=== PATIENT | female | born 1950 | race Caucasian/White ===

== ENCOUNTER 2018-12-13 17:04 | Inpatient (IN) | payer MEDICARE, OTHER ==
[~2018-12-13] VITALS: Ht 170.2 cm; Wt 63.2 kg
[2018-12-13 19:07] VITALS: BP 132/74
[2018-12-13 19:51] VITALS: BP 109/62
[2018-12-13] MEDS ORDERED: OXYB15TA PO (21:29)
[2018-12-13] MEDS ORDERED: OXYB10TA PO (21:29)
[2018-12-13] MEDS ORDERED: LEVO25TA4 PO (21:29)
[2018-12-13] MEDS ORDERED: METF500T9 PO (21:29)
[2018-12-13] MEDS ORDERED: LORA0.5T PO (21:29)
--- NOTE | 2018-12-13 21:30 | NUR ---
Home meds reviewed with pharmacy at [facility] and with patient
[2018-12-13] MEDS ORDERED: DEXTROSE 50% 25 GM / 50ML DISP.SYRIN. IV PRN (23:15)
[2018-12-13] MEDS ORDERED: IV DEXTROSE 5% 250 ML BAG. IV PRN (23:15)
[2018-12-13] MEDS: HYDROcodone/APAP 5/325MG 1 TAB TABLET PO PRN (23:32)
[2018-12-13 23:56] VITALS: BP 137/79
[2018-12-14] VITALS (8 sets, daily range): BP systolic 107–152; BP diastolic 64–83
[2018-12-14 05:46] LABS: BASO % 0 % (0-3); EOS % 0 % (0-3); HEMATOCRIT 33.5 % (36.0-47.0); HEMOGLOBIN 11.1 g/dL (12.0-15.5); LYMPH # 0.5 x10^3/uL (1.0-4.8); LYMPH % 4 % (24-48); MEAN CORPUSCULAR HEMOGLOBIN 32 pg (25-35); MEAN CORPUSCULAR HGB CONC 33 g/dL (31-37); MEAN CORPUSCULAR VOLUME 97 fL (79-100); MONO # 1.3 x10^3/uL (0.0-1.1); MONO % 11 % (0-9); NEUT # 9.6 x10^3/uL (1.8-7.7); NEUT % 84 % (31-73); PLATELET COUNT 391 x10^3/uL (140-400); RED BLOOD COUNT 3.46 x10^6/uL (3.50-5.40); RED CELL DISTRIBUTION WIDTH 14.1 % (11.5-14.5); WHITE BLOOD COUNT 11.4 x10^3/uL (4.0-11.0)
[2018-12-14] MEDS: LEVOTHYROXINE 25 MCG TABLET. PO SCH (05:51)
[2018-12-14] MEDS: HYDROcodone/APAP 5/325MG 1 TAB TABLET PO PRN ×4 (05:51→20:19)
[2018-12-14 06:00] LABS: ALBUMIN/GLOBULIN RATIO 0.4 (1.0-1.7); CALCIUM 9.3 mg/dL (8.5-10.1); CREATININE 0.7 mg/dL (0.6-1.0); GFR 83.2; POTASSIUM 3.9 mmol/L (3.5-5.1); TOTAL BILIRUBIN 0.6 mg/dL (0.2-1.0); TOTAL PROTEIN 6.7 g/dL (6.4-8.2)
[2018-12-14 06:20] LABS: PROTHROMBIN TIME PATIENT 15.2 SEC (11.7-14.0)
[2018-12-14] MEDS: IPRATRPIUM/ALBUTEROL 0.5/2.5MG 3 ML NEBU. NEB SCH ×4 (07:40→19:48)
[2018-12-14] MEDS: metFORMIN XR 500 MG TAB.ER.24H PO SCH ×2 (08:28→17:42)
[2018-12-14] MEDS: LORazepam 0.5 MG TABLET PO SCH (08:28)
[2018-12-14] MEDS: OXYBUTYNIN CHLORIDE 5 MG TABLET PO SCH ×3 (08:28→20:19)
[2018-12-14] MEDS: INSULIN LISPRO 300 UNITS/3 ML INSULN.PEN. SQ SCH ×3 (08:35→17:49)
[2018-12-14] MEDS ORDERED: OXYBUTYNIN CHLORIDE PO SCH ×2 (09:00)
[2018-12-14] MEDS ORDERED: PIPERACILLIN/TAZOBACTAM 3.375 GM in IV NORMAL SALINE 50ML 50 ML IV SCH (10:30)
--- NOTE | 2018-12-14 11:01 | HP ---
ADMIT DATE: 12/13/2018 HISTORY OF PRESENT ILLNESS: The patient is a 68-year-old female patient who presented to the Emergency Room of [facility] with generalized weakness and decreased appetite. She was recently diagnosed with possible lung cancer. She is scheduled for a biopsy. Over the last 4 days, she has had decreased appetite because anything she eats or drinks taste nasty. Her water had an unusual taste. She has been feeling more and more weak over the last 4 days, still has a productive cough and admits the cough is improved, but it was a month ago. She has been through several rounds of antibiotic and prednisone by her primary care physician. She was seen on 12/11/[address] Waller and apparently, a CT scan of the chest showed that she has 2 lung masses and they were plans for her to have a biopsy by interventional radiologist and a PET scan to rule out cancer in other parts of the body; however, she was evaluated yesterday in the Emergency Room, was found to have large right pleural effusion with adjacent basilar atelectasis and obscuration of the right heart border, previously seen the right lower lung mass is obscured in this exam and therefore, she was admitted to [facility] to consult the community service representative as well as the interventional radiologist to drain the fluid. PAST MEDICAL HISTORY: Significant for type 2 diabetes and chronic obstructive pulmonary disease. PAST SURGICAL HISTORY: Unremarkable. MEDICATIONS: She is currently on following medications: She is on ipratropium bromide, albuterol sulfate in 3 mL by nebulizer 4 times a day, spironolactone 25 mg once a day, ibuprofen 600 mg every 8 hours, hydrocodone/APAP 5/325 one tablet every 6 hours. She is on tramadol 50 mg every 6 hours, sertraline for Zoloft 200 mg once a day, lorazepam 0.5 mg once a day, Requip 0.5 mg at bedtime. She is on mometasone/formoterol for Dulera 2 puffs twice a day, metformin 1000 mg twice a day, levothyroxine 75 mcg once a day and oxybutynin chloride 5 mg once a day. ALLERGIES: SHE IS ALLERGIC TO SULFA DRUGS. FAMILY HISTORY: She has 1 older sister and one younger brother, both healthy. Her father at age of 84 and mother in her 80s. She is unable to say what caused their . SOCIAL HISTORY: She lives with her boyfriend. She does not have any children. She continued to smoke a pack a day, does not drink alcohol or use any recreational drugs. 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 REVIEW OF SYSTEMS: The patient denied any blurring of vision, cataract, glaucoma or macular degeneration. Denied any earache, tinnitus or sensorineural deafness. Denied any nosebleeds, stuffy nose or postnasal drip. Denied any sore throat, sore tongue, toothache, hoarseness of voice or difficulty swallowing. Did complain of anorexia, but no nausea, no vomiting, no diarrhea or constipation. Denied any hematemesis, melena or hematochezia. Denied any dysuria, frequency or hematuria. Denied any chest pain, but did complain of shortness of breath, cough with greenish sputum. Denied, however, any chills, rigors or fever. She has lost weight over the last 2 years. Her weight came down from 219 to 139. PHYSICAL EXAMINATION: GENERAL: When I examined her, she was extremely pale, cachectic, but no jaundice, cyanosis or thyromegaly. No jugular venous distention. No limb edema. VITAL SIGNS: Her heart rate was 97, blood pressure was 122/69, temperature was 97.8, respiratory rate was 24, and oxygen saturation was 97%. HEAD, EYES, Ears, NOSE AND THROAT: Normocephalic, atraumatic. NECK: Supple. HEART: Showed normal first and second heart sounds with no gallop or murmur. CHEST: Shows central trachea, good chest expansion air entry on the left side and absent breath sounds and dull percussion noted in the right side. ABDOMEN: Scaphoid, soft, nontender. NEUROLOGIC: She is awake, alert, responding appropriately. All cranial nerves are intact. EXTREMITIES: She moves extremities without difficulty, although she has marked muscle wasting. LABORATORY DATA: While in the Emergency Room of [facility] showed a white cell count of 16,400, hemoglobin 11.7, hematocrit 35, MCV 97, and platelet count of 419,000 with manual differential. Serum sodium was 127, potassium 4, chloride 91, bicarbonate 24, anion gap of 12, BUN 31, creatinine 0.9, estimated GFR was 62 mL per minute. Her glucose 171, calcium was 9.6. Total bilirubin, AST and ALT are normal. Alkaline phosphatase is slightly elevated. Total protein was 7. Albumin was 2.2. She apparently had a CT scan of the chest with IV contrast done on 11/26/2018 and this showed that she has bilateral lung masses seen with central necrosis suspicious for necrotic malignancy. This can be further evaluated by PET scan and/or biopsy. She has prominent enlarged mediastinal hilar lymph nodes seen. These are suspicious for metastatic involvement. Her left adrenal nodule and the right adrenal mass highly suspicious for metastatic involvement and can be further assessed by PET scan. She has right thyroid nodule measuring about 3.5 x 2.7 cm and should be further assessed with ultrasound and possible fine needle aspiration. She has had a chest x-ray done, which was seen in the Emergency Room and this showed that she has interval development of a large right pleural effusion with adjacent basilar atelectasis and obscuration of the right heart border, previously seen right lung mass is obscured in this exam. The patient was admitted to [facility] to continue with all other medication. We will consult the community service representative as well as the interventional radiologist to see if the pleural effusion can be drained and perhaps about a CT-guided biopsy can be obtained. MARK MARQUES MD DR: CHARLIE/rafael JOB#: [id number] / [id number]
[2018-12-14] MEDS: PIPERACILLIN/TAZOBACTAM 4.5 GM in IV NORMAL SALINE 100ML 100 ML IV SCH ×2 (11:07→17:41)
--- NOTE | 2018-12-14 11:15 | CONS ---
DATE OF CONSULTATION: PULMONARY CONSULTATION ATTENDING PHYSICIAN: Eddie Tirado MD REASON FOR CONSULTATION: Large pleural effusion, lung masses, and empyema. HISTORY OF PRESENT ILLNESS: The patient is a 68-year-old female who has a long history of tobacco use for 40 years. The patient has not been on home oxygen. She was seen by my partner, Dr. Waller on 12/11, where she presented with an abnormal CT chest, which had a large mass in the right lower lobe with central fluid collection and there was also a left upper lobe mass-like density with central necrosis. The patient was supposed to have a CT-guided biopsy; however, in the interim, she had a chest x-ray, which was done yesterday and it showed a large partially loculated right-sided pleural effusion. As a result, she was admitted for chest tube and thoracentesis. After the thoracentesis was performed, there was pus which came out of her right chest and as a result, she had a chest tube placed and all the fluid has been sent for analysis. The patient has been started on broad spectrum antibiotics. Upon further questioning, she states that she has lost about close to 100 pounds in a year. She attributes that to the use of metformin. The patient states that she fell about a month and half ago and since then, she started to have these symptoms including cough productive of multiple colored sputum including yellow, brown, and even blood-tinged. She has no TB exposure. She has some chills, but no fevers. She has cats, but no birds or other pets. Interestingly, her chest x-ray from August of this year did not reveal any definite masses or any significant effusion. I have been asked to see her for further evaluation. PAST MEDICAL HISTORY: Significant for suspected COPD that could be severe; history of recent weight loss, attributed to metformin use; history of diabetes. PAST SURGICAL HISTORY: No recent surgeries. MEDICATIONS: All reviewed as listed in the MRAD including broad spectrum antibiotics. REVIEW OF SYSTEMS: A 12-point system obtained. Pertinent positives discussed in my history of present illness, otherwise noncontributory. All systems that were negative were reviewed as well. SOCIAL HISTORY: Has been a smoker for 40 years and has not quit tobacco. FAMILY HISTORY: Noncontributory to lungs. PHYSICAL EXAMINATION: VITAL SIGNS: Reviewed. She is afebrile. Her pulse ox is 92% on 2 liters. HEENT: Sclerae nonicteric. NECK: Supple. LUNGS: With diminished breath sounds at right base. CARDIOVASCULAR: With a regular rate. ABDOMEN: Soft. EXTREMITIES: With no pitting edema. LABORATORY DATA: Labs were reviewed. White cell count 11.4, hemoglobin 11.1, and platelets are 391. BUN 24 and creatinine 0.7. IMPRESSION: 1. Large right-sided partially loculated pleural effusion, status post thoracentesis and consistent with pus and likely related to empyema. 2. Large rounded density with fluid collection in the right lower lobe close to the pleura and another density in the left upper lobe with some central necrosis. Interestingly, the chest x-ray in August was clear and I suspect that we may be dealing with an infectious process such as lung abscess/empyema on the right side and possible early abscess on the left upper lobe. However, the possibility of a necrotic tumor cannot be ruled out. Symptoms started after she fell over a month ago. 3. A 100-pound weight loss in the last 1 year. She attributes this to metformin use; however, malignancy is still a concern. She had a mammogram done 6 months ago and was negative for malignancy. 4. A 40 years of tobacco use, suspect underlying severe chronic obstructive pulmonary disease. 5. Acute hypoxic respiratory failure secondary to large right pleural effusion and underlying chronic obstructive pulmonary disease. RECOMMENDATIONS: 1. Continue with present oxygen 2 liters. 2. Continue chest tube drainage and follow the analysis. We will do daily chest x-ray and if that is still partial residual effusion left, she may need TPA via a chest tube. 3. We will review the cytology, as well as review all pleural fluid cultures. 4. We will follow chest x-ray and see the response to treatment. 5. Broad-spectrum antibiotics. 6. Infectious Disease has been consulted. We will follow along with them, their recommendation. 7. Bronchodilators. 8. Continue oxygen. 9. Further recommendations to follow once the analysis of the fluid are available. 10. Discussed with Dr. Tirado and discussed with Infectious Disease, RAILROAD [employer]ER. Critical care time 35 minutes. GILMA LÓPEZ MD DR: MARIAJOSE/rafael JOB#: [id number] / [id number] MTDD
[2018-12-14 11:17] LABS: % BANDS 22 % (0-9); % EOS 1 % (0-5); % LYMPHS 3 % (24-48); % METAS 1 % (0-0); % MONOS 6 % (0-10); % MYELOS 3 % (0-0); % SEGS 64 % (35-66)
[2018-12-14 11:18] LABS: PLT ESTIMATE ADEQUATE (ADEQUATE)
--- NOTE | 2018-12-14 12:28 | RAD ---
Ultrasound-guided placement of right thoracostomy tube. 12/14/2018 12:23 PM Indication: Multiloculated right pleural fluid collection. Pulmonary masses possibly related to infection or malignancy Consent: The procedure was explained in its entirety to the patient or the patients designated admitting representative by a member of the treatment team, including a discussion of the risks, benefits and commonly accepted alternatives to the procedure, as well as the expected consequences of no therapy whatsoever. Discussion of the risks included, but was not limited to, those that are most frequent and those that are rare but possibly severe or life-threatening, as well as the possibility of unforeseen complications. All elements of maximal sterile barrier technique including the use of a cap, mask, sterile gown, sterile gloves, large sterile sheet, appropriate hand hygiene, and 2% chlorhexidine for cutaneous antisepsis (or acceptable alternative antiseptic per current guidelines) were followed for this procedure. The right posterior thorax prepped and draped using sterile barrier technique. Ultrasound evaluation demonstrates a multiloculated, complex pleural collection. 1% lidocaine was administered for local anesthesia. Under direct ultrasound guidance a 5 Ugandan sheath needle was advanced into the largest visualized fluid collection. A guidewire was advanced into this collection over which following dilatation a 12 Ug[place]an drainage catheter was placed. Samples of fluid were aspirated and sent for further evaluation. Anesthesia: Local only Impression: Ultrasound-guided right thoracostomy tube placement
[2018-12-14 12:37] LABS: BF COLOR YELLOW; BF SOURCE PLEURAL
[2018-12-14 12:38] LABS: BF CLARITY TURBID; BF MON % 2 %; BF PMN % 98 %; BF RBC COUNT 30886 /cmm (Not Established); BF WBC COUNT 163470 /cmm (Not Established)
--- NOTE | 2018-12-14 15:08 | NUR ---
Tube leak noted with bubbles during inspiration at the CT insertion site. Musa, Roseanna, and Dr. Armijo notified. CT and suction left in place.
--- NOTE | 2018-12-14 17:05 | PDOC ---
Infectious Disease Note Vital Sign Vital Signs Vital Signs Date Time Temp Pulse Resp B/P (MAP) Pulse Ox O2 Delivery O2 Flow Rate FiO2 12/14/18 16:29 Nasal Cannula 2.0 12/14/18 15:36 95 12/14/18 15:30 97.9 90 20 107/68 (81) 97.9 Labs Lab Laboratory Tests Test 12/13/18 21:03 12/14/18 05:10 12/14/18 07:21 12/14/18 09:30 Glucose (Fingerstick) 156 mg/dL (70-99) 182 mg/dL (70-99) White Blood Count 11.4 x10^3/uL (4.0-11.0) Red Blood Count 3.46 x10^6/uL (3.50-5.40) Hemoglobin 11.1 g/dL (12.0-15.5) Hematocrit 33.5 % (36.0-47.0) Mean Corpuscular Volume 97 fL (79-100) Mean Corpuscular Hemoglobin 32 pg (25-35) Mean Corpuscular Hemoglobin Concent 33 g/dL (31-37) Red Cell Distribution Width 14.1 % (11.5-14.5) Platelet Count 391 x10^3/uL (140-400) Neutrophils (%) (Auto) 84 % (31-73) Lymphocytes (%) (Auto) 4 % (24-48) Monocytes (%) (Auto) 11 % (0-9) Eosinophils (%) (Auto) 0 % (0-3) Basophils (%) (Auto) 0 % (0-3) Neutrophils # (Auto) 9.6 x10^3/uL (1.8-7.7) Lymphocytes # (Auto) 0.5 x10^3/uL (1.0-4.8) Monocytes # (Auto) 1.3 x10^3/uL (0.0-1.1) Eosinophils # (Auto) 0.0 x10^3/uL (0.0-0.7) Basophils # (Auto) 0.0 x10^3/uL (0.0-0.2) Segmented Neutrophils % 64 % (35-66) Band Neutrophils % 22 % (0-9) Lymphocytes % 3 % (24-48) Monocytes % 6 % (0-10) Eosinophils % 1 % (0-5) Metamyelocytes % 1 % (0-0) Myelocytes % 3 % (0-0) Platelet Estimate Adequate (ADEQUATE) Prothrombin Time 15.2 SEC (11.7-14.0) Prothromb Time International Ratio 1.2 (0.8-1.1) Sodium Level 130 mmol/L (136-145) Potassium Level 3.9 mmol/L (3.5-5.1) Chloride Level 95 mmol/L (98-107) Carbon Dioxide Level 24 mmol/L (21-32) Anion Gap 11 (6-14) Blood Urea Nitrogen 24 mg/dL (7-20) Creatinine 0.7 mg/dL (0.6-1.0) Estimated GFR (Cockcroft-Gault) 83.2 BUN/Creatinine Ratio 34 (6-20) Glucose Level 163 mg/dL (70-99) Calcium Level 9.3 mg/dL (8.5-10.1) Total Bilirubin 0.6 mg/dL (0.2-1.0) Aspartate Amino Transf (AST/SGOT) 15 U/L (15-37) Alanine Aminotransferase (ALT/SGPT) 20 U/L (14-59) Alkaline Phosphatase 108 U/L (46-116) Total Protein 6.7 g/dL (6.4-8.2) Albumin 2.0 g/dL (3.4-5.0) Albumin/Globulin Ratio 0.4 (1.0-1.7) Body Fluid Source Pleural Body Fluid Color Yellow Body Fluid Clarity Turbid Body Fluid Nucleated Cells 207090 /cmm (Not Body Fluid Mononuclear WBCs (%) 2 % Body Fluid Polymorphonuclear Cells 98 % Body Fluid Total RBCs Counted 20583 /cmm (Not Test 12/14/18 11:11 Glucose (Fingerstick) 192 mg/dL (70-99) Objective Assessment Empyema s/p right chest tube placement 12/14. Bilateral lung masses with central necrosis, malignancy not ruled out. Leukocytosis Thrush Sulfa allergy Tooth decay Tobaccoism COPD DM Hypothyroidism Plan Plan of Care Cultures have been sent Continue Zyvox and Zosyn for now Add Nystatin swish and swallow f/u labs D/w sister at bedside D/w Dr. Armijo Thank you Attending Co-Sign Attending Co-Sign The patient was seen and interviewed as well as examined at the bedside. The chart was reviewed. The case was discussed. Agree with the plan of care. YESICA LARA APRN Dec 14, 2018 17:05 HEATHER BENEDICT MD Dec 14, 2018 17:13
[2018-12-14] MEDS: NYSTATIN 100,000 UNITS/ML 5 ML ORAL.SUSP. SWSW SCH ×2 (17:42→20:19)
--- NOTE | 2018-12-14 21:34 | CONS ---
DATE OF CONSULTATION: 12/14/2018 REFERRING PHYSICIAN: Eddie Tirado MD REASON FOR CONSULTATION: Right-sided empyema. HISTORY OF PRESENT ILLNESS: This patient is a 68-year-old female with a 40-year history of smoking, who was recently found to have an abnormal CT chest, which showed a large mass in the right lower lobe with central fluid collection and a left upper lobe mass-like density with central necrosis. She is scheduled to have a CT-guided biopsy next week. Yesterday, she presented to [facility] in [place] with complaints of increased generalized weakness, loss of appetite, and productive cough over the last 4 days. She was hypoxic, requiring supplemental oxygen of 2 liters. She had elevated WBC count of 16,400, segs 78%, and bands 13%. A chest x-ray showed interval development of a large right pleural effusion with adjacent basilar atelectasis. Previously seen right lower lobe mass is obscured and left upper lobe mass again seen. She was transferred to [place] for management. She underwent a thoracentesis earlier today. An ultrasound evaluation demonstrated a multiloculated complex pleural collection. Samples of fluid were aspirated and sent for cultures. The pleural fluid was turbid with WBCs greater than 163,000, pH is pending. After the procedure, pus came out of the right chest and as a result, a chest tube was placed. She is currently on Zyvox and Zosyn. Infectious Disease has been asked to consult. The patient says she continues to feel weak. She complains of productive cough with thick sputum, mild shortness of air, and chest discomfort. She states she had 4 rounds of azithromycin and prednisone prior to admission. She has had fever and chills off and on for several days. She complains of her mouth feeling dry and sore and has a toothache. She said she quit smoking a day ago. She denies nausea, vomiting, or diarrhea; denies dysuria. She denies exposure to TB; denies traveling outside the [place]. She has had some exposure to farm. She gardens. She has 3 cats; denies birds, rodents, or fish; denies tick or bug bites. She has had close to a 100-pound weight loss in the last year. PAST MEDICAL HISTORY: Chronic obstructive pulmonary disease, diabetes, hypothyroidism. PAST SURGICAL HISTORY: No significant past surgical history. SOCIAL HISTORY: The patient lives with her boyfriend. She does not have any children. She continued to smoke a pack a day prior to admission; denies alcohol or recreational drugs. 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 FAMILY HISTORY: Noncontributory. ALLERGIES: SULFA CAUSES STINGING SENSATION. MEDICATIONS: Zyvox, Zosyn, albuterol, Lortab, insulin, DuoNeb, Synthroid, Ativan, metformin, and oxybutynin. REVIEW OF SYSTEMS: Per HPI, otherwise all other review of systems negative. PHYSICAL EXAMINATION: VITAL SIGNS: Temperature is 97.9, blood pressure 107/68, heart rate 90, respiratory rate 20, pulse oximetry 95% on 2 liters oxygen, BMI 21. GENERAL: The patient is slightly propped up in bed, awake, weak appearing. HEENT: Pupils equally round, normal conjunctivae; oropharynx dry; thrush present. Left lower molar is quite decayed. NECK: Supple. LUNGS: Diminished aeration in the bases, nonlabored; right chest tube is in place. HEART: S1 and S2. ABDOMEN: Soft and nontender with bowel sounds present. EXTREMITIES: No gross edema or cyanosis. SKIN: Warm to touch. No signs of rash. NEUROLOGIC: Awake, oriented x 3. LABORATORY DATA: Today's WBC 11.4, hemoglobin 11.1, platelets 391,000, segs 64%, bands 22%, creatinine 0.7, BUN 24; sodium 130, potassium 3.9, total bilirubin 0.6, AST 15, ALT 20, albumin 2.0, glucose 163. Pleural fluid analysis is per HPI. Imaging is per HPI. Cultures are pending. IMPRESSION: 1. Empyema, status post right chest tube placement on 12/14/2018. 2. Bilateral lung masses with central necrosis, malignancy not ruled out. 3. Leukocytosis. 4. Thrush. 5. SULFA ALLERGY. 6. Tooth decay. 7. Tobaccoism. 8. Chronic obstructive pulmonary disease. 9. Diabetes. 10. Hypothyroidism. PLAN: Continue Zyvox and Zosyn for now; waiting culture results. We will add nystatin swish and swallow to treat thrush. Labs have been ordered for the morning along with a repeat chest x-ray; supportive care; Discussed with the patient's sister at bedside. Thank you, Dr. Tirado, for asking us to participate in this patient's care. Should you have further questions or concerns, please call. The patient is seen and examined and plan of care implemented by Dr. Heather Benedict. HEATHER BENEDICT MD DR: JANET/rafael JOB#: [id number] / [id number] TRENT
--- NOTE | 2018-12-14 23:54 | PN ---
DATE: 12/14/2018 SUBJECTIVE: The patient was admitted yesterday after she was seen at [facility] with large right-sided pleural effusion and probably right lower lobe collapse. There is no mediastinal shift to the left side. She was seen in consultation by Dr. Barton and apparently she has loculated effusion with the pleural fluid, seemed to be infected. He drained about 500-700 mL of purulent material and the chest tube was connected to the Pleur-evac to continuous suction. PHYSICAL EXAMINATION: GENERAL: When I saw her this morning, she was resting slightly propped up in bed, in no apparent respiratory distress, pale, cachectic, but no jaundice, cyanosis or thyromegaly. No jugular venous distention. No limb edema. VITAL SIGNS: Her heart rate was 90, blood pressure was 129/83, temperature was 97.6, respiratory rate was 18 and oxygen saturation was 93% on 3 liters oxygen. HEAD, EYES, EARS, NOSE AND THROAT: Showed normocephalic, atraumatic. NECK: Supple. HEART: Showed normal first and second heart sounds with no gallop, rub or murmur. CHEST: Shows central trachea. Good chest expansion and air entry on the left side. Decreased chest expansion and dull percussion note on the ____ side. She has a chest tube in place. ABDOMEN: Scaphoid, soft, nontender. NEUROLOGIC: She is lethargic, but arousable. All cranial nerves intact. She moves extremities without difficulty. She has marked muscle wasting. LABORATORY DATA: Her lab work this morning showed her white cell count was 11,400, hemoglobin 11, hematocrit 33, MCV 97, and platelet count of 391,000 with a manual differential showed 84% polymorphs, 4% lymphocytes, and 11% monocytes. Her chemistry showed serum sodium 130, potassium 3.9, chloride 95, bicarbonate 24, anion gap of 11, BUN 24, creatinine 0.7, estimated GFR was 83 mL per minute. Her glucose 163, calcium was 9.3. Total bilirubin, AST, ALT, alkaline phosphatase were normal. Total protein was 6.7, albumin 2. Her prothrombin time was 15.2. INR 1.2. ASSESSMENT: The patient has bilateral lung masses seen with central necrosis suspicious for necrotic malignancy. A repeat chest x-ray done yesterday showed that she has large right-sided pleural effusion with probably underlying lower lobe atelectasis. Her pleural fluid is loculated and seemed to be purulent and Dr. Barton has put the chest tube in to Pleur-evac and about 700 mL of purulent material was drained and sent for culture and sensitivity and cytology. PLAN: My plan is to given that there is a possibility of infection, I would consult the Infectious Disease specialist. I have already consulted the rug cleaner hand and meanwhile, we will continue all her other medications and pain management, oxygen supplementation and decide the further management accordingly. MARK MARQUES MD DR: CHARLIE/rafael JOB#: [id number] / [id number]
[2018-12-15] MEDS: PIPERACILLIN/TAZOBACTAM 4.5 GM in IV NORMAL SALINE 100ML 100 ML IV SCH ×4 (00:39→17:59)
[2018-12-15] MEDS: HYDROcodone/APAP 5/325MG 1 TAB TABLET PO PRN ×5 (00:39→22:05)
[2018-12-15 03:16] VITALS: BP 115/68
[2018-12-15 04:43] LABS: HEMOGLOBIN 10.2 g/dL (12.0-15.5); RED BLOOD COUNT 3.13 x10^6/uL (3.50-5.40); RED CELL DISTRIBUTION WIDTH 13.9 % (11.5-14.5); WHITE BLOOD COUNT 9.7 x10^3/uL (4.0-11.0)
[2018-12-15 05:11] LABS: ALBUMIN 1.8 g/dL (3.4-5.0); ALBUMIN/GLOBULIN RATIO 0.4 (1.0-1.7); CALCIUM 8.8 mg/dL (8.5-10.1); CREATININE 0.8 mg/dL (0.6-1.0); GFR 71.3; POTASSIUM 3.7 mmol/L (3.5-5.1); TOTAL BILIRUBIN 0.6 mg/dL (0.2-1.0)
[2018-12-15] MEDS: LEVOTHYROXINE 25 MCG TABLET. PO SCH (06:07)
[2018-12-15 07:10] VITALS: BP 111/61
[2018-12-15] MEDS: ALBUTEROL SULFATE 2.5 MG/3 ML NEBU. NEB PRN (07:20)
[2018-12-15] MEDS: IPRATRPIUM/ALBUTEROL 0.5/2.5MG 3 ML NEBU. NEB SCH ×4 (07:36→20:03)
[2018-12-15] MEDS: INSULIN LISPRO 300 UNITS/3 ML INSULN.PEN. SQ SCH ×3 (08:00→18:10)
[2018-12-15] MEDS: NYSTATIN 100,000 UNITS/ML 5 ML ORAL.SUSP. SWSW SCH ×4 (08:23→21:00)
[2018-12-15] MEDS: OXYBUTYNIN CHLORIDE 5 MG TABLET PO SCH ×3 (08:23→22:05)
[2018-12-15] MEDS: LORazepam 0.5 MG TABLET PO SCH ×2 (08:23→09:00)
[2018-12-15] MEDS: metFORMIN XR 500 MG TAB.ER.24H PO SCH ×2 (08:23→17:58)
--- NOTE | 2018-12-15 08:34 | PDOC ---
PULMONARY PROGRESS NOTES Subjective feels weak, sob better, no pain, is weak, ct tubing was kinked, corrected, now draining well Vitals Vital Signs Date Time Temp Pulse Resp B/P (MAP) Pulse Ox O2 Delivery O2 Flow Rate FiO2 12/15/18 07:22 95 Nasal Cannula 2.0 12/15/18 07:10 98.5 69 18 111/61 (78) 98.5 Lungs: Crackles, Other (r ct) Labs Laboratory Tests Test 12/13/18 21:03 12/14/18 05:10 12/14/18 07:21 12/14/18 09:30 Glucose (Fingerstick) 156 mg/dL (70-99) 182 mg/dL (70-99) White Blood Count 11.4 x10^3/uL (4.0-11.0) Red Blood Count 3.46 x10^6/uL (3.50-5.40) Hemoglobin 11.1 g/dL (12.0-15.5) Hematocrit 33.5 % (36.0-47.0) Mean Corpuscular Volume 97 fL (79-100) Mean Corpuscular Hemoglobin 32 pg (25-35) Mean Corpuscular Hemoglobin Concent 33 g/dL (31-37) Red Cell Distribution Width 14.1 % (11.5-14.5) Platelet Count 391 x10^3/uL (140-400) Neutrophils (%) (Auto) 84 % (31-73) Lymphocytes (%) (Auto) 4 % (24-48) Monocytes (%) (Auto) 11 % (0-9) Eosinophils (%) (Auto) 0 % (0-3) Basophils (%) (Auto) 0 % (0-3) Neutrophils # (Auto) 9.6 x10^3/uL (1.8-7.7) Lymphocytes # (Auto) 0.5 x10^3/uL (1.0-4.8) Monocytes # (Auto) 1.3 x10^3/uL (0.0-1.1) Eosinophils # (Auto) 0.0 x10^3/uL (0.0-0.7) Basophils # (Auto) 0.0 x10^3/uL (0.0-0.2) Segmented Neutrophils % 64 % (35-66) Band Neutrophils % 22 % (0-9) Lymphocytes % 3 % (24-48) Monocytes % 6 % (0-10) Eosinophils % 1 % (0-5) Metamyelocytes % 1 % (0-0) Myelocytes % 3 % (0-0) Platelet Estimate Adequate (ADEQUATE) Prothrombin Time 15.2 SEC (11.7-14.0) Prothromb Time International Ratio 1.2 (0.8-1.1) Sodium Level 130 mmol/L (136-145) Potassium Level 3.9 mmol/L (3.5-5.1) Chloride Level 95 mmol/L (98-107) Carbon Dioxide Level 24 mmol/L (21-32) Anion Gap 11 (6-14) Blood Urea Nitrogen 24 mg/dL (7-20) Creatinine 0.7 mg/dL (0.6-1.0) Estimated GFR (Cockcroft-Gault) 83.2 BUN/Creatinine Ratio 34 (6-20) Glucose Level 163 mg/dL (70-99) Calcium Level 9.3 mg/dL (8.5-10.1) Total Bilirubin 0.6 mg/dL (0.2-1.0) Aspartate Amino Transf (AST/SGOT) 15 U/L (15-37) Alanine Aminotransferase (ALT/SGPT) 20 U/L (14-59) Alkaline Phosphatase 108 U/L (46-116) Total Protein 6.7 g/dL (6.4-8.2) Albumin 2.0 g/dL (3.4-5.0) Albumin/Globulin Ratio 0.4 (1.0-1.7) Body Fluid Source Pleural Body Fluid Color Yellow Body Fluid Clarity Turbid Body Fluid pH 6.20 Body Fluid Nucleated Cells 453928 /cmm (Not Body Fluid Mononuclear WBCs (%) 2 % Body Fluid Polymorphonuclear Cells 98 % Body Fluid Total RBCs Counted 96722 /cmm (Not Test 12/14/18 11:11 12/14/18 17:11 12/14/18 20:38 12/15/18 04:30 Glucose (Fingerstick) 192 mg/dL (70-99) 233 mg/dL (70-99) 188 mg/dL (70-99) White Blood Count 9.7 x10^3/uL (4.0-11.0) Red Blood Count 3.13 x10^6/uL (3.50-5.40) Hemoglobin 10.2 g/dL (12.0-15.5) Hematocrit 30.0 % (36.0-47.0) Mean Corpuscular Volume 96 fL (79-100) Mean Corpuscular Hemoglobin 33 pg (25-35) Mean Corpuscular Hemoglobin Concent 34 g/dL (31-37) Red Cell Distribution Width 13.9 % (11.5-14.5) Platelet Count 305 x10^3/uL (140-400) Sodium Level 131 mmol/L (136-145) Potassium Level 3.7 mmol/L (3.5-5.1) Chloride Level 95 mmol/L (98-107) Carbon Dioxide Level 26 mmol/L (21-32) Anion Gap 10 (6-14) Blood Urea Nitrogen 19 mg/dL (7-20) Creatinine 0.8 mg/dL (0.6-1.0) Estimated GFR (Cockcroft-Gault) 71.3 BUN/Creatinine Ratio 24 (6-20) Glucose Level 188 mg/dL (70-99) Calcium Level 8.8 mg/dL (8.5-10.1) Total Bilirubin 0.6 mg/dL (0.2-1.0) Aspartate Amino Transf (AST/SGOT) 18 U/L (15-37) Alanine Aminotransferase (ALT/SGPT) 18 U/L (14-59) Alkaline Phosphatase 96 U/L (46-116) Total Protein 6.0 g/dL (6.4-8.2) Albumin 1.8 g/dL (3.4-5.0) Albumin/Globulin Ratio 0.4 (1.0-1.7) Test 12/15/18 07:19 Glucose (Fingerstick) 171 mg/dL (70-99) Laboratory Tests Test 12/14/18 09:30 12/14/18 11:11 12/14/18 17:11 12/14/18 20:38 Body Fluid Source Pleural Body Fluid Color Yellow Body Fluid Clarity Turbid Body Fluid pH 6.20 Body Fluid Nucleated Cells 901672 /cmm (Not Body Fluid Mononuclear WBCs (%) 2 % Body Fluid Polymorphonuclear Cells 98 % Body Fluid Total RBCs Counted 59835 /cmm (Not Glucose (Fingerstick) 192 mg/dL (70-99) 233 mg/dL (70-99) 188 mg/dL (70-99) Test 12/15/18 04:30 12/15/18 07:19 White Blood Count 9.7 x10^3/uL (4.0-11.0) Red Blood Count 3.13 x10^6/uL (3.50-5.40) Hemoglobin 10.2 g/dL (12.0-15.5) Hematocrit 30.0 % (36.0-47.0) Mean Corpuscular Volume 96 fL (79-100) Mean Corpuscular Hemoglobin 33 pg (25-35) Mean Corpuscular Hemoglobin Concent 34 g/dL (31-37) Red Cell Distribution Width 13.9 % (11.5-14.5) Platelet Count 305 x10^3/uL (140-400) Sodium Level 131 mmol/L (136-145) Potassium Level 3.7 mmol/L (3.5-5.1) Chloride Level 95 mmol/L (98-107) Carbon Dioxide Level 26 mmol/L (21-32) Anion Gap 10 (6-14) Blood Urea Nitrogen 19 mg/dL (7-20) Creatinine 0.8 mg/dL (0.6-1.0) Estimated GFR (Cockcroft-Gault) 71.3 BUN/Creatinine Ratio 24 (6-20) Glucose Level 188 mg/dL (70-99) Calcium Level 8.8 mg/dL (8.5-10.1) Total Bilirubin 0.6 mg/dL (0.2-1.0) Aspartate Amino Transf (AST/SGOT) 18 U/L (15-37) Alanine Aminotransferase (ALT/SGPT) 18 U/L (14-59) Alkaline Phosphatase 96 U/L (46-116) Total Protein 6.0 g/dL (6.4-8.2) Albumin 1.8 g/dL (3.4-5.0) Albumin/Globulin Ratio 0.4 (1.0-1.7) Glucose (Fingerstick) 171 mg/dL (70-99) Medications Active Scripts Medications Dose Route/Sig Max Daily Dose Days Date Category Levothyroxine Sodium 25 Mcg Tablet 1 Tab PO DAILY 12/13/18 Reported Lorazepam 0.5 Mg Tablet 1 Tab PO DAILY 12/13/18 Reported Oxybutynin Chloride Er (Oxybutynin Chloride) 15 Mg Tab.er.24 1 Tab PO DAILY 12/13/18 Reported Oxybutynin Chloride Er (Oxybutynin Chloride) 10 Mg Tab.er.24 1 Tab PO DAILY 12/13/18 Reported Metformin Hcl Er (Metformin Hcl) 500 Mg Tab.er.24h 1,000 Mg PO BIDWMEALS 12/13/18 Reported Comments cxr reviewed 1. Small-caliber right chest tube. Marked decrease of right pleural effusion, now small to moderate. 2. Right midlung mass. Stable left upper lung nodule. 3. Right basilar airspace opacities may be atelectasis. Impression . IMPRESSION: 1. Large right-sided partially loculated pleural effusion, status post thoracentesis and consistent with pus and likely related to empyema. 2. Large rounded density with fluid collection in the right lower lobe close to the pleura and another density in the left upper lobe with some central necrosis. Interestingly, the chest x-ray in August was clear and I suspect that we may be dealing with an infectious process such as lung abscess/empyema on the right side and possible early abscess on the left upper lobe. However, the possibility of a necrotic tumor cannot be ruled out. Symptoms started after she fell over a month ago. 3. A 100-pound weight loss in the last 1 year. She attributes this to metformin use; however, malignancy is still a concern. She had a mammogram done 6 months ago and was negative for malignancy. 4. A 40 years of tobacco use, suspect underlying severe chronic obstructive pulmonary disease. 5. Acute hypoxic respiratory failure secondary to large right pleural effusion and underlying chronic obstructive pulmonary disease. Plan . RECOMMENDATIONS: 1. Continue with present oxygen 2 liters. 2. Continue chest tube drainage and follow the analysis. We will do daily chest x-ray and if that is still partial residual effusion left, she may need TPA via a chest tube. increase suction to -40 3. We will review the cytology, as well as review all pleural fluid cultures. 4. We will follow chest x-ray and see the response to treatment. 5. Broad-spectrum antibiotics. 6. abx per Infectious Disease. 7. Bronchodilators. 8. Continue oxygen. 9. Further recommendations to follow once the analysis of the fluid are available. 10. Discussed with rn, pt and her sister GREG DE LA FUENTE MD Dec 15, 2018 08:34
--- NOTE | 2018-12-15 08:38 | PDOC ---
Infectious Disease Note Subjective Subjective "I feel like I can get up and walk." Feeling some better, still not very hungry. Remains on 2L O2 Denies worsening cough/SOA/chest discomfort No fevers/chills/N/V/D ROS ROS per HPI otherwise neg Vital Sign Vital Signs Vital Signs Date Time Temp Pulse Resp B/P (MAP) Pulse Ox O2 Delivery O2 Flow Rate FiO2 12/15/18 07:22 95 Nasal Cannula 2.0 12/15/18 07:10 98.5 69 18 111/61 (78) 98.5 Physical Exam PHYSICAL EXAM GENERAL: Lying down, appears comfortable HEENT: Pupils equally round, normal conjunctivae; oropharynx dry. Left lower molar is quite decayed. NECK: Supple. LUNGS: Improved aeration, Right chest tube w/ purulent drainage. HEART: S1 and S2. ABDOMEN: Soft and nontender with bowel sounds present. EXTREMITIES: No gross edema or cyanosis. SKIN: Warm to touch. No signs of rash. NEUROLOGIC: Awake, answering questions appropriately PIV Labs Lab Laboratory Tests Test 12/14/18 09:30 12/14/18 11:11 12/14/18 17:11 12/14/18 20:38 Body Fluid Source Pleural Body Fluid Color Yellow Body Fluid Clarity Turbid Body Fluid pH 6.20 Body Fluid Nucleated Cells 087066 /cmm (Not Body Fluid Mononuclear WBCs (%) 2 % Body Fluid Polymorphonuclear Cells 98 % Body Fluid Total RBCs Counted 85250 /cmm (Not Glucose (Fingerstick) 192 mg/dL (70-99) 233 mg/dL (70-99) 188 mg/dL (70-99) Test 12/15/18 04:30 12/15/18 07:19 White Blood Count 9.7 x10^3/uL (4.0-11.0) Red Blood Count 3.13 x10^6/uL (3.50-5.40) Hemoglobin 10.2 g/dL (12.0-15.5) Hematocrit 30.0 % (36.0-47.0) Mean Corpuscular Volume 96 fL (79-100) Mean Corpuscular Hemoglobin 33 pg (25-35) Mean Corpuscular Hemoglobin Concent 34 g/dL (31-37) Red Cell Distribution Width 13.9 % (11.5-14.5) Platelet Count 305 x10^3/uL (140-400) Sodium Level 131 mmol/L (136-145) Potassium Level 3.7 mmol/L (3.5-5.1) Chloride Level 95 mmol/L (98-107) Carbon Dioxide Level 26 mmol/L (21-32) Anion Gap 10 (6-14) Blood Urea Nitrogen 19 mg/dL (7-20) Creatinine 0.8 mg/dL (0.6-1.0) Estimated GFR (Cockcroft-Gault) 71.3 BUN/Creatinine Ratio 24 (6-20) Glucose Level 188 mg/dL (70-99) Calcium Level 8.8 mg/dL (8.5-10.1) Total Bilirubin 0.6 mg/dL (0.2-1.0) Aspartate Amino Transf (AST/SGOT) 18 U/L (15-37) Alanine Aminotransferase (ALT/SGPT) 18 U/L (14-59) Alkaline Phosphatase 96 U/L (46-116) Total Protein 6.0 g/dL (6.4-8.2) Albumin 1.8 g/dL (3.4-5.0) Albumin/Globulin Ratio 0.4 (1.0-1.7) Glucose (Fingerstick) 171 mg/dL (70-99) Objective Assessment Empyema s/p right chest tube placement 12/14. -ph 6.20. WBC >163,000. Bilateral lung masses with central necrosis, malignancy not ruled out. Leukocytosis - better Thrush Sulfa allergy Tooth decay Tobaccoism COPD DM Hypothyroidism Plan Plan of Care Cultures pending Continue Zyvox and Zosyn Nystatin swish and swallow f/u cxr D/w sister at bedside D/w Dr. Tirado Attending Co-Sign Attending Co-Sign The patient was seen and interviewed as well as examined at the bedside. The chart was reviewed. The case was discussed. Agree with the plan of care. YESICA LARA APRN Dec 15, 2018 08:38 HEATHER BENEDICT MD Dec 15, 2018 15:47
--- NOTE | 2018-12-15 11:01 | RAD ---
PORTABLE CHEST 1V Clinical Indication: Empyema Comparison: Two-view chest December 13, 2018. Findings: There is inferior right hemithorax pigtail catheter. The cardiomediastinal silhouette is normal. Left upper lung nodule is stable. There is marked decrease of right pleural effusion. No obvious pneumothorax. Right midlung masslike opacity measures 4.5 cm. There are surrounding linear opacities. IMPRESSION: 1. Small-caliber right chest tube. Marked decrease of right pleural effusion, now small to moderate. 2. Right midlung mass. Stable left upper lung nodule. 3. Right basilar airspace opacities may be atelectasis. Electronically signed by: Victor Manuel Wilkins MD (12/15/2018 10:58 AM) [facility]
[2018-12-15 11:35] VITALS: BP 98/60
--- NOTE | 2018-12-15 12:52 | PN ---
DATE: 12/15/2018 SUBJECTIVE: The patient is resting, slightly propped up in bed, in no apparent respiratory distress. On questioning her, she seemed to be slightly better today, less chest pain; however, her mouth is continued to be dry. Still has severe anorexia and poor appetite. She has about more than 500 mL of purulent drainage from her right hemithorax. PHYSICAL EXAMINATION: GENERAL: When I examined her, she was pale, cachectic, but no jaundice, cyanosis, or thyromegaly. No jugular venous distension. No limb edema. VITAL SIGNS: Her heart rate was 69, blood pressure was 111/61, temperature was 98.5, respiratory rate was 18 and oxygen saturation was 95% on 2 liters of oxygen. HEAD, EYES, EARS, NOSE AND THROAT: Showed normocephalic, atraumatic. NECK: Supple. HEART: Showed normal first and second heart sounds. No gallop or murmur. CHEST: Showed central trachea, equal bilateral expansion, air entry is much better today on the right side. ABDOMEN: Scaphoid, soft, nontender. NEUROLOGICAL: She was sleepy, but arousable. All cranial nerves intact. She moves extremities without difficulty. She has marked muscle wasting and weakness. Her intake was incompletely recorded. LABORATORY DATA: Her lab work this morning showed a white cell count was 9700, hemoglobin 10, hematocrit 30, MCV 96, and platelet count 305,000. Her serum sodium slightly up at 131, potassium 3.7, chloride 95, bicarbonate 26, anion gap of 10, BUN 19, creatinine 0.8, estimated GFR was 71 mL per minute. Her glucose 188, calcium was 8.8. Total bilirubin, AST, ALT, alkaline phosphatase were normal. Total protein was 6, albumin was 1.8. Her prothrombin time was 15.2, INR of 1.2. Pleural fluid showed that she has more than yellow turbid with a pH of 6.2. She has more than 153,470 nucleated cells of which 2% mononuclear, 98% were polymorphs. The culture and sensitivity is still pending at the time of this dictation. ASSESSMENT: 1. Right-sided empyema, status post chest tube placement to Pleur-evac. 2. Possible malignancy, has 2 masses on the right lower lobe and left upper lobe. 3. Chronic obstructive pulmonary disease. 4. Type 2 diabetes mellitus. 5. Hypothyroidism. 6. Oropharyngeal candidiasis. PLAN: Continue IV antibiotic in the form of piperacillin, tazobactam as well as Zyvox, continued to monitor her blood sugar and adjust insulin as needed. Continue with nystatin suspension swish and swallow 4 times a day. Await the result of the culture and sensitivity. MARK MARQUES MD DR: CHARLIE/rafael JOB#: [id number] / [id number]
[2018-12-15 15:00] VITALS: BP 108/67
[2018-12-15 19:27] VITALS: BP 115/60
[2018-12-15] MEDS: BENZOCAINE/MENTHOL LOZENGE. PO PRN ×2 (22:04→22:08)
[2018-12-15] MEDS: LACTOBACILLUS RHAMNOSUS GG 1 CAPSULE. PO SCH (22:06)
[2018-12-15 23:29] VITALS: BP 107/66
[2018-12-16] MEDS: PIPERACILLIN/TAZOBACTAM 4.5 GM in IV NORMAL SALINE 100ML 100 ML IV SCH ×4 (01:11→17:35)
[2018-12-16 03:39] VITALS: BP 114/78
[2018-12-16 05:30] LABS: HEMATOCRIT 29.5 % (36.0-47.0); RED BLOOD COUNT 3.07 x10^6/uL (3.50-5.40); WHITE BLOOD COUNT 9.9 x10^3/uL (4.0-11.0)
[2018-12-16 05:59] LABS: CALCIUM 8.7 mg/dL (8.5-10.1); CREATININE 0.8 mg/dL (0.6-1.0); GFR 71.3; POTASSIUM 3.7 mmol/L (3.5-5.1)
[2018-12-16] MEDS: LEVOTHYROXINE 25 MCG TABLET. PO SCH (06:41)
[2018-12-16 07:00] VITALS: BP 103/63
[2018-12-16] MEDS ORDERED: SERT100T PO (07:20)
[2018-12-16] MEDS ORDERED: IBUP-1007 PO (07:22)
[2018-12-16] MEDS ORDERED: SPIR25TA5 PO (07:26)
[2018-12-16] MEDS ORDERED: LEVO75TA5 PO (07:27)
[2018-12-16] MEDS ORDERED: HYDR-3164 PO (07:34)
[2018-12-16] MEDS ORDERED: LORA0.5T PO (07:34)
[2018-12-16] MEDS ORDERED: ROPI0.25 PO (07:34)
[2018-12-16] MEDS ORDERED: BUDE10.22 IH (07:36)
[2018-12-16] MEDS ORDERED: TRAM50TA PO (07:36)
[2018-12-16] MEDS ORDERED: ASCO500T3 PO (07:38)
[2018-12-16] MEDS: IPRATRPIUM/ALBUTEROL 0.5/2.5MG 3 ML NEBU. NEB SCH ×4 (08:00→19:28)
[2018-12-16] MEDS: NYSTATIN 100,000 UNITS/ML 5 ML ORAL.SUSP. SWSW SCH ×4 (08:50→21:09)
[2018-12-16] MEDS: LACTOBACILLUS RHAMNOSUS GG 1 CAPSULE. PO SCH ×2 (08:50→21:09)
[2018-12-16] MEDS: OXYBUTYNIN CHLORIDE 5 MG TABLET PO SCH ×3 (08:50→21:09)
[2018-12-16] MEDS: metFORMIN XR 500 MG TAB.ER.24H PO SCH ×2 (08:50→17:35)
[2018-12-16] MEDS: INSULIN LISPRO 300 UNITS/3 ML INSULN.PEN. SQ SCH ×3 (08:56→17:00)
[2018-12-16] MEDS: LORazepam 0.5 MG TABLET PO SCH (09:00)
--- NOTE | 2018-12-16 09:01 | PDOC ---
PULMONARY PROGRESS NOTES Subjective sob better, has cough, cough, sputum. ct drainage about 600 cc over the past 24 hrs, Vitals Vital Signs Date Time Temp Pulse Resp B/P (MAP) Pulse Ox O2 Delivery O2 Flow Rate FiO2 12/16/18 08:02 95 Room Air 12/16/18 07:00 97.3 80 20 103/63 (76) 2.0 97.3 ROS: No Nausea General: Alert HEENT: Other (nc at perrl) Lungs: Crackles, Other (r ct) Cardiovascular: S1, S2 Abdomen: Soft, Non-tender Neuro Exam: Alert Extremities: No Edema Skin: Warm Labs Laboratory Tests Test 12/14/18 09:30 12/14/18 11:11 12/14/18 17:11 12/14/18 20:38 Body Fluid Source Pleural Body Fluid Color Yellow Body Fluid Clarity Turbid Body Fluid pH 6.20 Body Fluid Nucleated Cells 510172 /cmm (Not Body Fluid Mononuclear WBCs (%) 2 % Body Fluid Polymorphonuclear Cells 98 % Body Fluid Total RBCs Counted 15086 /cmm (Not Glucose (Fingerstick) 192 mg/dL (70-99) 233 mg/dL (70-99) 188 mg/dL (70-99) Test 12/15/18 04:30 12/15/18 07:19 12/15/18 11:48 12/15/18 16:56 White Blood Count 9.7 x10^3/uL (4.0-11.0) Red Blood Count 3.13 x10^6/uL (3.50-5.40) Hemoglobin 10.2 g/dL (12.0-15.5) Hematocrit 30.0 % (36.0-47.0) Mean Corpuscular Volume 96 fL (79-100) Mean Corpuscular Hemoglobin 33 pg (25-35) Mean Corpuscular Hemoglobin Concent 34 g/dL (31-37) Red Cell Distribution Width 13.9 % (11.5-14.5) Platelet Count 305 x10^3/uL (140-400) Sodium Level 131 mmol/L (136-145) Potassium Level 3.7 mmol/L (3.5-5.1) Chloride Level 95 mmol/L (98-107) Carbon Dioxide Level 26 mmol/L (21-32) Anion Gap 10 (6-14) Blood Urea Nitrogen 19 mg/dL (7-20) Creatinine 0.8 mg/dL (0.6-1.0) Estimated GFR (Cockcroft-Gault) 71.3 BUN/Creatinine Ratio 24 (6-20) Glucose Level 188 mg/dL (70-99) Calcium Level 8.8 mg/dL (8.5-10.1) Total Bilirubin 0.6 mg/dL (0.2-1.0) Aspartate Amino Transf (AST/SGOT) 18 U/L (15-37) Alanine Aminotransferase (ALT/SGPT) 18 U/L (14-59) Alkaline Phosphatase 96 U/L (46-116) Total Protein 6.0 g/dL (6.4-8.2) Albumin 1.8 g/dL (3.4-5.0) Albumin/Globulin Ratio 0.4 (1.0-1.7) Glucose (Fingerstick) 171 mg/dL (70-99) 197 mg/dL (70-99) 178 mg/dL (70-99) Test 12/15/18 21:33 12/16/18 05:00 12/16/18 07:41 Glucose (Fingerstick) 172 mg/dL (70-99) 182 mg/dL (70-99) White Blood Count 9.9 x10^3/uL (4.0-11.0) Red Blood Count 3.07 x10^6/uL (3.50-5.40) Hemoglobin 10.0 g/dL (12.0-15.5) Hematocrit 29.5 % (36.0-47.0) Mean Corpuscular Volume 96 fL (79-100) Mean Corpuscular Hemoglobin 33 pg (25-35) Mean Corpuscular Hemoglobin Concent 34 g/dL (31-37) Red Cell Distribution Width 14.0 % (11.5-14.5) Platelet Count 264 x10^3/uL (140-400) Sodium Level 129 mmol/L (136-145) Potassium Level 3.7 mmol/L (3.5-5.1) Chloride Level 94 mmol/L (98-107) Carbon Dioxide Level 27 mmol/L (21-32) Anion Gap 8 (6-14) Blood Urea Nitrogen 14 mg/dL (7-20) Creatinine 0.8 mg/dL (0.6-1.0) Estimated GFR (Cockcroft-Gault) 71.3 Glucose Level 174 mg/dL (70-99) Calcium Level 8.7 mg/dL (8.5-10.1) Laboratory Tests Test 12/15/18 11:48 12/15/18 16:56 12/15/18 21:33 12/16/18 05:00 Glucose (Fingerstick) 197 mg/dL (70-99) 178 mg/dL (70-99) 172 mg/dL (70-99) White Blood Count 9.9 x10^3/uL (4.0-11.0) Red Blood Count 3.07 x10^6/uL (3.50-5.40) Hemoglobin 10.0 g/dL (12.0-15.5) Hematocrit 29.5 % (36.0-47.0) Mean Corpuscular Volume 96 fL (79-100) Mean Corpuscular Hemoglobin 33 pg (25-35) Mean Corpuscular Hemoglobin Concent 34 g/dL (31-37) Red Cell Distribution Width 14.0 % (11.5-14.5) Platelet Count 264 x10^3/uL (140-400) Sodium Level 129 mmol/L (136-145) Potassium Level 3.7 mmol/L (3.5-5.1) Chloride Level 94 mmol/L (98-107) Carbon Dioxide Level 27 mmol/L (21-32) Anion Gap 8 (6-14) Blood Urea Nitrogen 14 mg/dL (7-20) Creatinine 0.8 mg/dL (0.6-1.0) Estimated GFR (Cockcroft-Gault) 71.3 Glucose Level 174 mg/dL (70-99) Calcium Level 8.7 mg/dL (8.5-10.1) Test 12/16/18 07:41 Glucose (Fingerstick) 182 mg/dL (70-99) Medications Active Scripts Medications Dose Route/Sig Max Daily Dose Days Date Category Levothyroxine Sodium 25 Mcg Tablet 1 Tab PO DAILY 12/13/18 Reported Lorazepam 0.5 Mg Tablet 1 Tab PO DAILY 12/13/18 Reported Oxybutynin Chloride Er (Oxybutynin Chloride) 15 Mg Tab.er.24 1 Tab PO DAILY 12/13/18 Reported Oxybutynin Chloride Er (Oxybutynin Chloride) 10 Mg Tab.er.24 1 Tab PO DAILY 12/13/18 Reported Metformin Hcl Er (Metformin Hcl) 500 Mg Tab.er.24h 1,000 Mg PO BIDWMEALS 12/13/18 Reported Comments cxr reviewed 1. Small-caliber right chest tube. Marked decrease of right pleural effusion, now small to moderate. 2. Right midlung mass. Stable left upper lung nodule. 3. Right basilar airspace opacities may be atelectasis. Impression . IMPRESSION: 1. Large right-sided partially loculated pleural effusion, status post thoracentesis and consistent with pus,empyema. pleural studies ph 6.20. WBC >163,000. 2. Large rounded density with fluid collection in the right lower lobe close to the pleura and another density in the left upper lobe with some central necrosis. Interestingly, the chest x-ray in August was clear and I suspect that we may be dealing with an infectious process such as lung abscess/empyema on the right side and possible early abscess on the left upper lobe. However, the possibility of a necrotic tumor cannot be ruled out. Symptoms started after she fell over a month ago. 3. A 100-pound weight loss in the last 1 year. She attributes this to metformin use; however, malignancy is still a concern. She had a mammogram done 6 months ago and was negative for malignancy. 4. A 40 years of tobacco use, suspect underlying severe chronic obstructive pulmonary disease. 5. Acute hypoxic respiratory failure secondary to large right pleural effusion and underlying chronic obstructive pulmonary disease. Plan . RECOMMENDATIONS: 1. Continue with present oxygen 2 liters. 2. Continue chest tube drainage and follow the analysis. We will do daily chest x-ray, cxr improving, may need repeat ct for eval ?lung mass. cont ct w suction to -40 3. We will review the cytology, as well as review all pleural fluid cultures. 4. fu cxs 5. Broad-spectrum antibiotics. 6. abx per Infectious Disease. 7. Bronchodilators. 8. Continue oxygen. 9. Further recommendations to follow once the analysis of the fluid are available. 10. Discussed with rn, pt and her sister GREG DE LA FUENTE MD Dec 16, 2018 09:01
--- NOTE | 2018-12-16 09:06 | PN ---
DATE: 12/16/2018 SUBJECTIVE: The patient is sitting on the edge of the bed comfortably in no apparent respiratory distress. She is definitely more awake, alert, wants to start moving. Muscles are weak. She tolerated her diet yesterday. Repeat chest x-ray showed that her right-sided pleural effusion has markedly decreased. PHYSICAL EXAMINATION: GENERAL: When I examined her, she was pale, cachectic, but no jaundice, cyanosis or thyromegaly. No jugular venous distension. No limb edema. VITAL SIGNS: Her heart rate was 80, blood pressure was 103/63, temperature was 97.3, respiratory rate was 20, and oxygen saturation was 95% on room air. HEAD, EYES, EARS, NOSE AND THROAT: Showed normocephalic, atraumatic. NECK: Supple. HEART: Showed normal first and second heart sounds with no gallop or murmur. CHEST: Showed central trachea, air entry and chest expansion much improved on the right side. She has a chest tube to the right hemithorax to the Pleur-evac and intermittent suction. ABDOMEN: Scaphoid, soft, nontender. NEUROLOGICAL: She was awake, alert, responding appropriately. All cranial nerves intact. She moves extremities without difficulty. She is mostly bedbound. She is very extremely weak and debilitated. Her intake over the last 24 hours was 160, output was 2900. LABORATORY DATA: Her lab work this morning showed a serum sodium of 129, potassium 3.7, chloride 94, bicarbonate 27, anion gap of 8, BUN 14, creatinine 0.8, estimated GFR was 71 mL/min. Her glucose 174, calcium was 8.7. His white cell count was 9900, hemoglobin 10, hematocrit 30, MCV 96, and platelet count 264,000. ASSESSMENT: 1. Right-sided empyema, status post chest tube placement to Pleur-evac. The right-sided pleural effusion has largely resolved. 2. Possible malignancy with two masses in the right lower lobe and left upper lobe. 3. Chronic obstructive pulmonary disease. 4. Type 2 diabetes mellitus. 5. Hypothyroidism. 6. Oropharyngeal candidiasis. PLAN: Continue with IV antibiotic in the form of Rocephin and tazobactam as well as Zyvox. Continue to monitor blood sugar and adjust insulin as needed. Continue with oral nystatin suspension 5 mL swish and swallow 4 times a day. Await the result of culture and sensitivity. I will ask physical therapy and occupational therapy to evaluate and treat. MARK MARQUES MD DR: CHARLIE/rafael JOB#: [id number] / [id number]
[2018-12-16] MEDS: HYDROcodone/APAP 5/325MG 1 TAB TABLET PO PRN ×2 (09:36→19:19)
--- NOTE | 2018-12-16 09:38 | PDOC ---
Infectious Disease Note Subjective Subjective Wants to get up and move around but feels tied down with all the tubes Not much of an appetite but ate some breakfast. Ongoing bad taste in mouth Off oxygen supplementation. + cough and mild chest discomfort. + BM No F/C/S/N/V/D ROS ROS per HPI otherwise neg Vital Sign Vital Signs Vital Signs Date Time Temp Pulse Resp B/P (MAP) Pulse Ox O2 Delivery O2 Flow Rate FiO2 12/16/18 08:02 95 Room Air 12/16/18 07:00 97.3 80 20 103/63 (76) 2.0 97.3 Physical Exam PHYSICAL EXAM GENERAL: Propped up in bed, alert, NAD HEENT: NKECHI, Oropharynx dry. Left lower molar decay NECK: Supple. LUNGS: Improved aeration, Right chest tube w/ purulent drainage. HEART: S1 and S2. ABDOMEN: Soft and nontender with bowel sounds present. EXTREMITIES: No gross edema or cyanosis. SKIN: Warm to touch. No signs of rash. NEUROLOGIC: Alert, answering questions appropriately PIV Labs Lab Laboratory Tests Test 12/15/18 11:48 12/15/18 16:56 12/15/18 21:33 12/16/18 05:00 Glucose (Fingerstick) 197 mg/dL (70-99) 178 mg/dL (70-99) 172 mg/dL (70-99) White Blood Count 9.9 x10^3/uL (4.0-11.0) Red Blood Count 3.07 x10^6/uL (3.50-5.40) Hemoglobin 10.0 g/dL (12.0-15.5) Hematocrit 29.5 % (36.0-47.0) Mean Corpuscular Volume 96 fL (79-100) Mean Corpuscular Hemoglobin 33 pg (25-35) Mean Corpuscular Hemoglobin Concent 34 g/dL (31-37) Red Cell Distribution Width 14.0 % (11.5-14.5) Platelet Count 264 x10^3/uL (140-400) Sodium Level 129 mmol/L (136-145) Potassium Level 3.7 mmol/L (3.5-5.1) Chloride Level 94 mmol/L (98-107) Carbon Dioxide Level 27 mmol/L (21-32) Anion Gap 8 (6-14) Blood Urea Nitrogen 14 mg/dL (7-20) Creatinine 0.8 mg/dL (0.6-1.0) Estimated GFR (Cockcroft-Gault) 71.3 Glucose Level 174 mg/dL (70-99) Calcium Level 8.7 mg/dL (8.5-10.1) Test 12/16/18 07:41 Glucose (Fingerstick) 182 mg/dL (70-99) Micro CXR, 12/15 1. Small-caliber right chest tube. Marked decrease of right pleural effusion, now small to moderate. 2. Right midlung mass. Stable left upper lung nodule. 3. Right basilar airspace opacities may be atelectasis. Objective Assessment Empyema s/p right chest tube placement 12/14. Looks better. Eating well -ph 6.20. WBC >163,000. Bilateral lung masses with central necrosis, malignancy not ruled out. Leukocytosis - better Thrush Sulfa allergy Tooth decay Tobaccoism COPD DM Hypothyroidism Plan Plan of Care Cultures still pending Continue Zyvox and Zosyn Nystatin swish and swallow D/w sister Attending Co-Sign Attending Co-Sign The patient was seen and interviewed as well as examined at the bedside. The chart was reviewed. The case was discussed. Agree with the plan of care. YESICA LARA APRN Dec 16, 2018 09:38 HEATHER BENEDICT MD Dec 16, 2018 12:34
[2018-12-16 11:00] VITALS: BP 102/67
[2018-12-16] MEDS: ASCORBIC ACID 500 MG TABLET PO SCH (12:16)
[2018-12-16] MEDS: SERTRALINE 50 MG TABLET. PO SCH (12:16)
[2018-12-16] MEDS: BENZOCAINE/MENTHOL LOZENGE. PO PRN (14:01)
--- NOTE | 2018-12-16 14:05 | NUR ---
Chest tube on the right in place, output monitoring done every shift. Dr. Lieberman instructed this nurse to put more tape on the tube to avoid kinks when the patient changes body position. The patient refused stating that it is uncomfortable/painful; discussed with the patient the importance of keeping the tube straight. No signs of understanding noted, will do more patient teaching on this topic.
[2018-12-16 15:24] VITALS: BP 110/63
--- NOTE | 2018-12-16 17:36 | RAD ---
PORTABLE CHEST 1V Clinical Indication: Empyema Comparison: AP chest, prior day. Findings: Stable inferior right hemithorax pigtail catheter. Cardiomediastinal silhouette is stable. Unchanged right midlung and left upper lobe masses. Discoid atelectasis left lung base. Right basilar airspace opacities are unchanged. There is residual right pleural effusion, similar. No pneumothorax is seen. IMPRESSION: 1. Right chest tube and residual right pleural effusion are stable. 2. Bilateral lung masses are unchanged. 3. Unchanged right basilar airspace disease. Electronically signed by: Victor Manuel Wilkins MD (12/16/2018 5:33 PM) [facility]
[2018-12-16 19:41] VITALS: BP 120/68
[2018-12-16] MEDS: rOPINIRole 0.25 MG TABLET. PO SCH (21:09)
[2018-12-16 23:53] VITALS: BP 141/82
[2018-12-17] MEDS: PIPERACILLIN/TAZOBACTAM 4.5 GM in IV NORMAL SALINE 100ML 100 ML IV SCH ×4 (00:21→17:23)
[2018-12-17 03:18] VITALS: BP 130/76
[2018-12-17] MEDS: LEVOTHYROXINE 75 MCG TABLET PO SCH (05:59)
[2018-12-17 07:00] VITALS: BP 119/73
[2018-12-17] MEDS: metFORMIN XR 500 MG TAB.ER.24H PO SCH ×2 (08:17→17:18)
[2018-12-17] MEDS: HYDROcodone/APAP 5/325MG 1 TAB TABLET PO PRN ×3 (08:18→21:43)
[2018-12-17] MEDS: INSULIN LISPRO 300 UNITS/3 ML INSULN.PEN. SQ SCH ×3 (08:21→17:00)
[2018-12-17] MEDS: IPRATRPIUM/ALBUTEROL 0.5/2.5MG 3 ML NEBU. NEB SCH ×4 (08:46→20:27)
[2018-12-17] MEDS: LORazepam 0.5 MG TABLET PO SCH ×2 (09:00→09:01)
[2018-12-17] MEDS: ASCORBIC ACID 500 MG TABLET PO SCH (09:00)
[2018-12-17] MEDS: OXYBUTYNIN CHLORIDE 5 MG TABLET PO SCH ×3 (09:00→20:41)
[2018-12-17] MEDS: NYSTATIN 100,000 UNITS/ML 5 ML ORAL.SUSP. SWSW SCH ×4 (09:01→20:41)
[2018-12-17] MEDS: SERTRALINE 50 MG TABLET. PO SCH (09:01)
[2018-12-17] MEDS: LACTOBACILLUS RHAMNOSUS GG 1 CAPSULE. PO SCH ×2 (09:01→20:41)
--- NOTE | 2018-12-17 09:19 | PDOC ---
PULMONARY PROGRESS NOTES Subjective ABOUT THE SAME WANTS TO GO HOME Vitals Vital Signs Date Time Temp Pulse Resp B/P (MAP) Pulse Ox O2 Delivery O2 Flow Rate FiO2 12/17/18 08:48 97 Room Air 12/17/18 08:21 18 12/17/18 07:00 97.5 65 119/73 (88) 97.5 12/16/18 15:24 2.0 ROS: No Nausea General: Alert HEENT: Other (nc at perrl) Lungs: Crackles, Other (r ct) Cardiovascular: S1, S2 Abdomen: Soft, Non-tender Neuro Exam: Alert Extremities: No Edema Skin: Warm Labs Laboratory Tests Test 12/15/18 11:48 12/15/18 16:56 12/15/18 21:33 12/16/18 05:00 Glucose (Fingerstick) 197 mg/dL (70-99) 178 mg/dL (70-99) 172 mg/dL (70-99) White Blood Count 9.9 x10^3/uL (4.0-11.0) Red Blood Count 3.07 x10^6/uL (3.50-5.40) Hemoglobin 10.0 g/dL (12.0-15.5) Hematocrit 29.5 % (36.0-47.0) Mean Corpuscular Volume 96 fL (79-100) Mean Corpuscular Hemoglobin 33 pg (25-35) Mean Corpuscular Hemoglobin Concent 34 g/dL (31-37) Red Cell Distribution Width 14.0 % (11.5-14.5) Platelet Count 264 x10^3/uL (140-400) Sodium Level 129 mmol/L (136-145) Potassium Level 3.7 mmol/L (3.5-5.1) Chloride Level 94 mmol/L (98-107) Carbon Dioxide Level 27 mmol/L (21-32) Anion Gap 8 (6-14) Blood Urea Nitrogen 14 mg/dL (7-20) Creatinine 0.8 mg/dL (0.6-1.0) Estimated GFR (Cockcroft-Gault) 71.3 Glucose Level 174 mg/dL (70-99) Calcium Level 8.7 mg/dL (8.5-10.1) Test 12/16/18 07:41 12/16/18 11:36 12/16/18 17:06 12/16/18 21:25 Glucose (Fingerstick) 182 mg/dL (70-99) 207 mg/dL (70-99) 143 mg/dL (70-99) 210 mg/dL (70-99) Test 12/17/18 07:06 Glucose (Fingerstick) 160 mg/dL (70-99) Laboratory Tests Test 12/16/18 11:36 12/16/18 17:06 12/16/18 21:25 12/17/18 07:06 Glucose (Fingerstick) 207 mg/dL (70-99) 143 mg/dL (70-99) 210 mg/dL (70-99) 160 mg/dL (70-99) Medications Active Scripts Medications Dose Route/Sig Max Daily Dose Days Date Category Levothyroxine Sodium 25 Mcg Tablet 1 Tab PO DAILY 12/13/18 Reported Lorazepam 0.5 Mg Tablet 1 Tab PO DAILY 12/13/18 Reported Oxybutynin Chloride Er (Oxybutynin Chloride) 15 Mg Tab.er.24 1 Tab PO DAILY 12/13/18 Reported Oxybutynin Chloride Er (Oxybutynin Chloride) 10 Mg Tab.er.24 1 Tab PO DAILY 12/13/18 Reported Metformin Hcl Er (Metformin Hcl) 500 Mg Tab.er.24h 1,000 Mg PO BIDWMEALS 12/13/18 Reported Comments cxr reviewed 1. Small-caliber right chest tube. Marked decrease of right pleural effusion, now small to moderate. 2. Right midlung mass. Stable left upper lung nodule. 3. Right basilar airspace opacities may be atelectasis. Impression . IMPRESSION: 1. Large right-sided partially loculated pleural effusion, status post thoracentesis and consistent with pus,empyema. pleural studies ph 6.20. WBC >163,000. 2. Large rounded density with fluid collection in the right lower lobe close to the pleura and another density in the left upper lobe with some central necrosis. Interestingly, the chest x-ray in August was clear and I suspect that we may be dealing with an infectious process such as lung abscess/empyema on the right side and possible early abscess on the left upper lobe. However, the possibility of a necrotic tumor cannot be ruled out. Symptoms started after she fell over a month ago. 3. A 100-pound weight loss in the last 1 year. She attributes this to metformin use; however, malignancy is still a concern. She had a mammogram done 6 months ago and was negative for malignancy. 4. A 40 years of tobacco use, suspect underlying severe chronic obstructive pulmonary disease. 5. Acute hypoxic respiratory failure secondary to large right pleural effusion and underlying chronic obstructive pulmonary disease. Plan . WILL SEND FLUID FOR CHOLESTEROL AND TRIGLYCERIDE RULE OUT CHYLOTHORAX REPEAT CT CHEST MAY NEED SURGICAL INTERVENTION ANTIBX D/W SANTA NGUYEN MD Dec 17, 2018 09:19
--- NOTE | 2018-12-17 10:19 | PN ---
DATE: 12/17/2018 SUBJECTIVE: The patient is resting, slightly propped up in bed, in no apparent distress. She is definitely much improved. She is now maintaining her oxygen to 95% on room air. She continued to have anorexia and has not eaten much this morning, although she has eaten much better yesterday. PHYSICAL EXAMINATION: GENERAL: When I examined her, she looked pale, cachectic, but no jaundice or cyanosis. No lymphadenopathy or thyromegaly. No jugular venous distension. No limb edema. VITAL SIGNS: Her heart rate was 65, blood pressure 119/73, temperature was 97.5, respiratory rate was 18, and oxygen saturation was 93%. HEAD, EYES, EARS, NOSE AND THROAT: Normocephalic, atraumatic. NECK: Supple. HEART: Showed normal first and second heart sounds. No gallop, rub or murmur. CHEST: Clear to auscultation. No crepitation or rhonchi. ABDOMEN: Distended, soft, and nontender. No guarding or rigidity. No organomegaly. All hernial orifice intact. Bowel sounds normal. NEUROLOGIC: She was more awake, alert, responding appropriately. All cranial nerves intact. She moves extremities without difficulty. She has a chest tube to the right hemithorax. Her intake over the last 24 hours was 440 and output was 325. LABORATORY DATA: As of yesterday, her white cell count was 9900, hemoglobin 10, hematocrit 29, MCV 96, and platelet count 264,000. Chemistry showed serum sodium of 129, potassium 3.7, chloride 94, bicarbonate 27, anion gap of 8, BUN 14, creatinine 0.8, and estimated GFR was 71 mL per minute. ASSESSMENT: 1. Right-sided empyema, status post chest tube placement to Pleur-evac. The right-sided pleural effusion has largely resolved. 2. Possible malignancy with 2 masses with central necrosis involving the right lower lobe and left upper lobe. 3. Chronic obstructive pulmonary disease. 4. Type 2 diabetes mellitus. 5. Hypothyroidism. 6. Oropharyngeal candidiasis. PLAN: Continue with IV antibiotic in the form of Zosyn and Zyvox. Continue to monitor blood sugar and adjust insulin as needed. Continue oral nystatin suspension swish and swallow 4 times a day and so far the culture and sensitivity still pending. We did start physical and occupational therapy. MARK MARQUES MD DR: Neymar JOB#: [id number] / [id number]
--- NOTE | 2018-12-17 10:49 | NUR ---
SW following pt for dc planning. Chart reviewed and discussed with RN. Pt lives at home and [place] transfer with possible recent Lung CA dx. ID, Pulmonary following, PT/OT pending and pt has Chest tube. Will continue to follow pt pending dc needs.
[2018-12-17 11:00] VITALS: BP 119/67
--- NOTE | 2018-12-17 11:59 | RAD ---
Chest radiograph 12/17/2018 9:00 AM INDICATION: Empyema COMPARISON: December 16, 2018 TECHNIQUE: Portable upright frontal view of the chest is provided. FINDINGS: The cardiomediastinal silhouette is similar in appearance. Nodular opacity left upper lobe appears stable measuring up to 3.8 cm. Nodular opacity in the right lower lobe measures up to 5.4 cm, stable. Interstitial changes at the right lung base appears similar. Small right pleural effusion. Trace left pleural effusion. Pulmonary emphysematous changes are present. No pneumothorax. Pigtail catheter projects over the right lung base. IMPRESSION: No significant interval change since prior examination. Electronically signed by: Yasmeen Martin MD (12/17/2018 11:56 AM) [id number]
--- NOTE | 2018-12-17 13:48 | PDOC ---
Infectious Disease Note Subjective Subjective Wants to get up and move around but feels tied down with all the tubes Not much of an appetite but ate some breakfast. Ongoing bad taste in mouth Off oxygen supplementation. + cough and mild chest discomfort. + BM No F/C/S/N/V/D Vital Sign Vital Signs Vital Signs Date Time Temp Pulse Resp B/P (MAP) Pulse Ox O2 Delivery O2 Flow Rate FiO2 12/17/18 11:52 18 Room Air 12/17/18 11:00 97.4 64 119/67 (84) 96 97.4 12/16/18 15:24 2.0 Physical Exam PHYSICAL EXAM GENERAL: Propped up in bed, alert, NAD HEENT: NKECHI, Oropharynx dry. Left lower molar decay NECK: Supple. LUNGS: Improved aeration, Right chest tube w/ purulent drainage. HEART: S1 and S2. ABDOMEN: Soft and nontender with bowel sounds present. EXTREMITIES: No gross edema or cyanosis. SKIN: Warm to touch. No signs of rash. NEUROLOGIC: Alert, answering questions appropriately PIV Labs Lab Laboratory Tests Test 12/16/18 17:06 12/16/18 21:25 12/17/18 07:06 12/17/18 11:40 Glucose (Fingerstick) 143 mg/dL (70-99) 210 mg/dL (70-99) 160 mg/dL (70-99) 178 mg/dL (70-99) Micro Microbiology 12/14/18 Anaerobic/Aerobic Culture, Resulted Pending 12/14/18 Anaerobic Culture Result 1 (LICHA), Resulted Pending 12/14/18 Aerobic Culture, Resulted Pending 12/14/18 Aerobic Culture Result 1 (LICHA), Resulted Pending 12/14/18 Gram Stain - Final, Resulted 12/14/18 Gram Stain Result 1 (LICHA) - Final, Resulted 12/14/18 Gram Stain Result 2 (LICHA) - Final, Resulted Objective Assessment Empyema s/p right chest tube placement 12/14. Looks better. Eating well -ph 6.20. WBC >163,000. Bilateral lung masses with central necrosis, malignancy not ruled out. Leukocytosis - better Thrush Sulfa allergy Tooth decay Tobaccoism COPD DM Hypothyroidism Plan Plan of Care Cultures so far neg Continue Zyvox and Zosyn Nystatin swish and swallow may be thoracic duct injury JESSICA YANEZ MD Dec 17, 2018 13:48
--- NOTE | 2018-12-17 14:07 | PATHOLOGY ---
Note [facility] Accession Number: [id number] TESTS RESULT FLAG UNITS REF RANGE LAB Clinician Provided Cytology Information No. of containers..01 Other (Miscellaneous) Source: RT PLEURAL FLUID DIAGNOSIS: RT PLEURAL FLUID NEGATIVE FOR MALIGNANT CELLS. NUMEROUS ACUTE INFLAMMATORY CELLS AND FEW MESOTHELIAL CELLS PRESENT. THIS INTERPRETATION INCLUDES EVALUATION OF A CELL BLOCK. Signed out by: Mohamud Azul MD, Pathologist NPI- [id number] Performed by: Jesusita Menchaca, Focusing Machine Operator ([facility]) Gross description: 16ML, DENNISON, CLOUDY /LCS FLAG LEGEND: L-Low Normal,H-High Normal,LL-Alert Low,HH-Alert High <-Panic Low,>-Panic High,A-Abnormal,AA-Critical Abnormal Performed at: [facility] [address] [place] [address] Alton Motley MD, [address] [facility] [address] [place] [address] Mohamud Azul MD, Specimen Comment: A courtesy copy of this report has been sent to Specimen Comment: [phone], . Specimen Comment: Report sent to / DR MARQUES Specimen Comment: A duplicate report has been generated due to demographic updates. Performed at: [address] [place] [address] [address], [place], [place] [id number] MD Alton Motley MD Phone: [phone]
[2018-12-17 15:00] VITALS: BP 113/67
--- NOTE | 2018-12-17 15:01 | NUR ---
Pleural flulid specimen obtained from chest tube port per order with assist of [facility] ICU, specimen hand carried to lab and given to Olivia in lab.
[2018-12-17 19:16] VITALS: BP 115/76
[2018-12-17] MEDS: rOPINIRole 0.25 MG TABLET. PO SCH (20:41)
[2018-12-17 23:16] VITALS: BP 128/77
[2018-12-18 03:28] VITALS: BP 114/57
[2018-12-18] MEDS: PIPERACILLIN/TAZOBACTAM 4.5 GM in IV NORMAL SALINE 100ML 100 ML IV SCH ×5 (06:03→17:44)
[2018-12-18] MEDS: LEVOTHYROXINE 75 MCG TABLET PO SCH (06:03)
[2018-12-18 07:00] VITALS: BP 115/70
[2018-12-18] MEDS: INSULIN LISPRO 300 UNITS/3 ML INSULN.PEN. SQ SCH ×3 (08:00→17:00)
[2018-12-18] MEDS: IPRATRPIUM/ALBUTEROL 0.5/2.5MG 3 ML NEBU. NEB SCH ×4 (08:13→20:55)
--- NOTE | 2018-12-18 08:46 | NUR ---
SW following pt. PT/OT recommends home with assistance. will continue to follow pending dc needs.
[2018-12-18 08:55] LABS: HEMATOCRIT 32.9 % (36.0-47.0); HEMOGLOBIN 10.8 g/dL (12.0-15.5); RED BLOOD COUNT 3.42 x10^6/uL (3.50-5.40); WHITE BLOOD COUNT 13.8 x10^3/uL (4.0-11.0)
[2018-12-18] MEDS: LORazepam 0.5 MG TABLET PO SCH (09:00)
[2018-12-18 09:21] LABS: ALBUMIN 1.8 g/dL (3.4-5.0); ALBUMIN/GLOBULIN RATIO 0.4 (1.0-1.7); CALCIUM 8.8 mg/dL (8.5-10.1); CREATININE 0.7 mg/dL (0.6-1.0); GFR 83.2; POTASSIUM 3.8 mmol/L (3.5-5.1); TOTAL BILIRUBIN 0.3 mg/dL (0.2-1.0); TOTAL PROTEIN 6.1 g/dL (6.4-8.2)
--- NOTE | 2018-12-18 10:04 | PN ---
DATE: 12/18/2018 SUBJECTIVE: The patient is sitting, propped up in bed, in no apparent distress. She is definitely more awake, alert, complaining of nasty taste in her mouth. Her intake is very poor because of that. She is still complaining of some cough with scanty sputum and right-sided chest pain. She would like to move around, she feels tired with the tubes. PHYSICAL EXAMINATION: GENERAL: When I examined her, she looked pale, cachectic, but no jaundice, cyanosis, or thyromegaly. No jugular venous distension. No lower limb edema. VITAL SIGNS: Her heart rate was 75, blood pressure 115/70, temperature was 98.2, respiratory rate was 16, and oxygen saturation was 95%. HEAD, EYES, EARS, NOSE AND THROAT: Normocephalic and atraumatic. NECK: Supple. HEART: Showed normal first and second heart sounds. No gallop, rub, or murmur. CHEST: Shows central trachea, equal bilateral chest expansion and air entry, vesicular sounds. No crepitation or rhonchi. She has chest tube on the right to the Pleur-evac. ABDOMEN: Scaphoid, soft, and nontender. NEUROLOGIC: She is definitely more awake and alert. Her cranial nerves are intact. She moves extremities without difficulty. Her intake over the last 24 hours was incompletely recorded as well as output. LABORATORY WORK: Today's lab work still pending at the time of this dictation. So far, her pleural fluid culture and sensitivity are negative. ASSESSMENT: 1. Right-sided empyema, status post chest tube placement to Pleur-evac. The right-sided pleural effusion has largely resolved. 2. Possible malignancy with 2 masses with central necrosis involving the right lower lobe and left upper lobe. 3. Chronic obstructive pulmonary disease. 4. Type 2 diabetes mellitus, seems to be much better controlled. 5. Hypothyroidism. 6. Oropharyngeal candidiasis. 7. Severe anorexia and poor appetite. PLAN: To continue with IV antibiotic. Continue with chest tube. I will start her on Marinol to see if that improved her appetite. MARK MARQUES MD DR: CHARLIE/rafael JOB#: [id number] / [id number]
[2018-12-18] MEDS: LACTOBACILLUS RHAMNOSUS GG 1 CAPSULE. PO SCH ×2 (10:22→20:24)
[2018-12-18] MEDS: ASCORBIC ACID 500 MG TABLET PO SCH (10:22)
[2018-12-18] MEDS: NYSTATIN 100,000 UNITS/ML 5 ML ORAL.SUSP. SWSW SCH (10:22)
[2018-12-18] MEDS: OXYBUTYNIN CHLORIDE 5 MG TABLET PO SCH ×3 (10:22→20:24)
[2018-12-18] MEDS: metFORMIN XR 500 MG TAB.ER.24H PO SCH ×2 (10:22→17:43)
[2018-12-18] MEDS: SERTRALINE 50 MG TABLET. PO SCH (10:23)
[2018-12-18 11:00] VITALS: BP 130/71
--- NOTE | 2018-12-18 11:16 | RAD ---
PORTABLE CHEST 1V INDICATION: Empyema. COMPARISON STUDY: 12/17/2018. FINDINGS: Lungs: Normal lung volume. Stable right lung basilar predominant heterogeneous opacities. Stable right mid lung masslike opacity and left upper lung zone nodular opacity. Stable pulmonary vasculature. Pleura: Small right and trace left pleural effusions. Heart and Mediastinum: Stable cardiomediastinal silhouette and great vessels. Bones and Soft Tissues: Stable regional skeleton and soft tissues. IMPRESSION: 1. Stable right mid lung zone masslike opacity and left upper lung zone nodular opacity. 2. Stable right basilar heterogeneous opacities. 3. Small right and trace left pleural effusions. Electronically signed by: Gurmeet Tellez MD (12/18/2018 11:14 AM) [id number]
[2018-12-18] MEDS: DRONABINOL 2.5 MG CAPSULE. PO SCH ×3 (11:30→16:30)
--- NOTE | 2018-12-18 11:42 | PDOC ---
Infectious Disease Note Subjective Subjective feeling good ROS ROS no n/v/d/sob Vital Sign Vital Signs Vital Signs Date Time Temp Pulse Resp B/P (MAP) Pulse Ox O2 Delivery O2 Flow Rate FiO2 12/18/18 08:15 95 Room Air 12/18/18 07:00 98.2 75 16 115/70 (85) 98.2 12/18/18 02:27 2.0 Physical Exam PHYSICAL EXAM GENERAL: Propped up in bed, alert, NAD HEENT: NKECHI, Oropharynx dry. Left lower molar decay NECK: Supple. LUNGS: Improved aeration, Right chest tube w/ purulent drainage. HEART: S1 and S2. ABDOMEN: Soft and nontender with bowel sounds present. EXTREMITIES: No gross edema or cyanosis. SKIN: Warm to touch. No signs of rash. NEUROLOGIC: Alert, answering questions appropriately PIV Labs Lab Laboratory Tests Test 12/17/18 16:56 12/17/18 20:46 12/18/18 08:00 12/18/18 08:10 Glucose (Fingerstick) 142 mg/dL (70-99) 178 mg/dL (70-99) 142 mg/dL (70-99) White Blood Count 13.8 x10^3/uL (4.0-11.0) Red Blood Count 3.42 x10^6/uL (3.50-5.40) Hemoglobin 10.8 g/dL (12.0-15.5) Hematocrit 32.9 % (36.0-47.0) Mean Corpuscular Volume 96 fL (79-100) Mean Corpuscular Hemoglobin 32 pg (25-35) Mean Corpuscular Hemoglobin Concent 33 g/dL (31-37) Red Cell Distribution Width 14.0 % (11.5-14.5) Platelet Count 293 x10^3/uL (140-400) Sodium Level 135 mmol/L (136-145) Potassium Level 3.8 mmol/L (3.5-5.1) Chloride Level 99 mmol/L (98-107) Carbon Dioxide Level 29 mmol/L (21-32) Anion Gap 7 (6-14) Blood Urea Nitrogen 8 mg/dL (7-20) Creatinine 0.7 mg/dL (0.6-1.0) Estimated GFR (Cockcroft-Gault) 83.2 BUN/Creatinine Ratio 11 (6-20) Glucose Level 150 mg/dL (70-99) Calcium Level 8.8 mg/dL (8.5-10.1) Total Bilirubin 0.3 mg/dL (0.2-1.0) Aspartate Amino Transf (AST/SGOT) 32 U/L (15-37) Alanine Aminotransferase (ALT/SGPT) 46 U/L (14-59) Alkaline Phosphatase 82 U/L (46-116) Total Protein 6.1 g/dL (6.4-8.2) Albumin 1.8 g/dL (3.4-5.0) Albumin/Globulin Ratio 0.4 (1.0-1.7) Micro Microbiology 12/14/18 Anaerobic/Aerobic Culture, Resulted Pending 12/14/18 Anaerobic Culture Result 1 (LICHA), Resulted Pending 12/14/18 Aerobic Culture, Resulted Pending 12/14/18 Aerobic Culture Result 1 (LICHA), Resulted Pending 12/14/18 Gram Stain - Final, Resulted 12/14/18 Gram Stain Result 1 (LICHA) - Final, Resulted 12/14/18 Gram Stain Result 2 (LICHA) - Final, Resulted Objective Assessment Empyema s/p right chest tube placement 12/14. Looks better. Eating well -ph 6.20. WBC >163,000. Bilateral lung masses with central necrosis, malignancy not ruled out. Leukocytosis - better Thrush Sulfa allergy Tooth decay Tobaccoism COPD DM Hypothyroidism Plan Plan of Care Cultures so far neg Continue Zosyn d/c zyvox Nystatin swish and swallow to d/c sec to bad taste may be thoracic duct injury , TG and chylomicron pending get ct chest d/w sister and JESSICA YANEZ MD Dec 18, 2018 11:42
[2018-12-18] MEDS ORDERED: IOHEXOL 300 MG/ML 100ML VIAL. IV ONE (12:00)
[2018-12-18] MEDS ORDERED: CONTRAST GIVEN. MC PRN (12:15)
--- NOTE | 2018-12-18 13:53 | PDOC ---
PULMONARY PROGRESS NOTES Subjective NOT MORE SOA DOING BETTER TODAY Vitals Vital Signs Date Time Temp Pulse Resp B/P (MAP) Pulse Ox O2 Delivery O2 Flow Rate FiO2 12/18/18 12:08 94 Room Air 12/18/18 11:00 97.9 72 18 130/71 (90) 97.9 12/18/18 02:27 2.0 ROS: No Nausea General: Alert HEENT: Other (nc at perrl) Lungs: Crackles, Other (r ct) Cardiovascular: S1, S2 Abdomen: Soft, Non-tender Neuro Exam: Alert Extremities: No Edema Skin: Warm Labs Laboratory Tests Test 12/16/18 17:06 12/16/18 21:25 12/17/18 07:06 12/17/18 11:40 Glucose (Fingerstick) 143 mg/dL (70-99) 210 mg/dL (70-99) 160 mg/dL (70-99) 178 mg/dL (70-99) Test 12/17/18 16:56 12/17/18 20:46 12/18/18 08:00 12/18/18 08:10 Glucose (Fingerstick) 142 mg/dL (70-99) 178 mg/dL (70-99) 142 mg/dL (70-99) White Blood Count 13.8 x10^3/uL (4.0-11.0) Red Blood Count 3.42 x10^6/uL (3.50-5.40) Hemoglobin 10.8 g/dL (12.0-15.5) Hematocrit 32.9 % (36.0-47.0) Mean Corpuscular Volume 96 fL (79-100) Mean Corpuscular Hemoglobin 32 pg (25-35) Mean Corpuscular Hemoglobin Concent 33 g/dL (31-37) Red Cell Distribution Width 14.0 % (11.5-14.5) Platelet Count 293 x10^3/uL (140-400) Sodium Level 135 mmol/L (136-145) Potassium Level 3.8 mmol/L (3.5-5.1) Chloride Level 99 mmol/L (98-107) Carbon Dioxide Level 29 mmol/L (21-32) Anion Gap 7 (6-14) Blood Urea Nitrogen 8 mg/dL (7-20) Creatinine 0.7 mg/dL (0.6-1.0) Estimated GFR (Cockcroft-Gault) 83.2 BUN/Creatinine Ratio 11 (6-20) Glucose Level 150 mg/dL (70-99) Calcium Level 8.8 mg/dL (8.5-10.1) Total Bilirubin 0.3 mg/dL (0.2-1.0) Aspartate Amino Transf (AST/SGOT) 32 U/L (15-37) Alanine Aminotransferase (ALT/SGPT) 46 U/L (14-59) Alkaline Phosphatase 82 U/L (46-116) Total Protein 6.1 g/dL (6.4-8.2) Albumin 1.8 g/dL (3.4-5.0) Albumin/Globulin Ratio 0.4 (1.0-1.7) Test 12/18/18 11:45 Glucose (Fingerstick) 196 mg/dL (70-99) Laboratory Tests Test 12/17/18 16:56 12/17/18 20:46 12/18/18 08:00 12/18/18 08:10 Glucose (Fingerstick) 142 mg/dL (70-99) 178 mg/dL (70-99) 142 mg/dL (70-99) White Blood Count 13.8 x10^3/uL (4.0-11.0) Red Blood Count 3.42 x10^6/uL (3.50-5.40) Hemoglobin 10.8 g/dL (12.0-15.5) Hematocrit 32.9 % (36.0-47.0) Mean Corpuscular Volume 96 fL (79-100) Mean Corpuscular Hemoglobin 32 pg (25-35) Mean Corpuscular Hemoglobin Concent 33 g/dL (31-37) Red Cell Distribution Width 14.0 % (11.5-14.5) Platelet Count 293 x10^3/uL (140-400) Sodium Level 135 mmol/L (136-145) Potassium Level 3.8 mmol/L (3.5-5.1) Chloride Level 99 mmol/L (98-107) Carbon Dioxide Level 29 mmol/L (21-32) Anion Gap 7 (6-14) Blood Urea Nitrogen 8 mg/dL (7-20) Creatinine 0.7 mg/dL (0.6-1.0) Estimated GFR (Cockcroft-Gault) 83.2 BUN/Creatinine Ratio 11 (6-20) Glucose Level 150 mg/dL (70-99) Calcium Level 8.8 mg/dL (8.5-10.1) Total Bilirubin 0.3 mg/dL (0.2-1.0) Aspartate Amino Transf (AST/SGOT) 32 U/L (15-37) Alanine Aminotransferase (ALT/SGPT) 46 U/L (14-59) Alkaline Phosphatase 82 U/L (46-116) Total Protein 6.1 g/dL (6.4-8.2) Albumin 1.8 g/dL (3.4-5.0) Albumin/Globulin Ratio 0.4 (1.0-1.7) Test 12/18/18 11:45 Glucose (Fingerstick) 196 mg/dL (70-99) Medications Active Scripts Medications Dose Route/Sig Max Daily Dose Days Date Category Levothyroxine Sodium 25 Mcg Tablet 1 Tab PO DAILY 12/13/18 Reported Lorazepam 0.5 Mg Tablet 1 Tab PO DAILY 12/13/18 Reported Oxybutynin Chloride Er (Oxybutynin Chloride) 15 Mg Tab.er.24 1 Tab PO DAILY 12/13/18 Reported Oxybutynin Chloride Er (Oxybutynin Chloride) 10 Mg Tab.er.24 1 Tab PO DAILY 12/13/18 Reported Metformin Hcl Er (Metformin Hcl) 500 Mg Tab.er.24h 1,000 Mg PO BIDWMEALS 12/13/18 Reported Comments cxr reviewed 1. Small-caliber right chest tube. Marked decrease of right pleural effusion, now small to moderate. 2. Right midlung mass. Stable left upper lung nodule. 3. Right basilar airspace opacities may be atelectasis. Impression . IMPRESSION: 1. Large right-sided partially loculated pleural effusion, S/P CHEST TUBE 2. Large rounded density with fluid collection in the right lower lobe close to the pleura and another density in the left upper lobe with some central necrosis. REVIEWED THE REPEAT CT WITH DR BERRY WILL PROCEED WITH [facility] 3. A 100-pound weight loss in the last 1 year. 4. A 40 years of tobacco use, suspect underlying severe chronic obstructive pulmonary disease. 5. Acute hypoxic respiratory failure secondary to large right pleural effusion and underlying chronic obstructive pulmonary disease. Plan . [facility] WILL SEND FLUID FOR CHOLESTEROL AND TRIGLYCERIDE RULE OUT CHYLOTHORAX PENDING REPEAT CT CHEST REVIEWED SEE DICTATION ANTIBX D/W SANTA NGUYEN MD Dec 18, 2018 13:53
[2018-12-18 15:00] VITALS: BP 99/59
--- NOTE | 2018-12-18 15:30 | RAD ---
PQRS Compliance Statement: One or more of the following individualized dose reduction techniques were utilized for this examination: 1. Automated exposure control 2. Adjustment of the mA and/or kV according to patient size 3. Use of iterative reconstruction technique CT chest with contrast December 18, 2018 INDICATION: Thoracic duct injury. COMPARISON: CT chest November 26, 2018. TECHNIQUE: Multiple axial CT images of the chest were obtained after the intravenous administration of 75 mL Omnipaque 300. Coronal and sagittal reformats are provided. FINDINGS: Stable heterogeneously enhancing nodule in the right thyroid lobe measuring 2.5 cm. Heart size is within normal limits. No pericardial effusion. Thoracic aorta is normal in course and caliber. No new or enlarging thoracic lymphadenopathy. There is a hydropneumothorax on the right with at least 2.1 cm pleural separation. Pleural enhancement is identified which may reflect empyema. Right lower lobe thoracostomy tube is in place. There is a centrally hypoattenuating mass in the right lower lobe measuring 4.7 x 4.2 cm. Stable appearance of a subpleural mass in the left upper lobe anteriorly measuring 3.8 x 1 2.0 cm. Small left pleural effusion is identified. Liver is normal in appearance. Spleen is stable. Upper abdominal ascites appears increased. Right adrenal mass measures 3.6 x 2.1 cm, stable. No suspicious osseous abnormality is identified. IMPRESSION: 1. There is a new small right hydropneumothorax with 2.1 cm pleural separation. There is thickening and enhancement of the pleura which may be reactive or infectious in etiology. Correlate with any signs and symptoms of an empyema. Right-sided thoracostomy tube is present. 2. Increase in small left pleural effusion. 3. Hypoattenuating masses in the right lower lobe and anterior left upper lobe appears stable. 4. Stable mediastinal lymphadenopathy. Stable appearance of the adrenal glands. 5. Increase in moderate abdominal ascites. Electronically signed by: Yasmeen Martin MD (12/18/2018 3:27 PM) [id number]
[2018-12-18 19:43] VITALS: BP 114/67
[2018-12-18] MEDS: HYDROcodone/APAP 5/325MG 1 TAB TABLET PO PRN (20:24)
[2018-12-18] MEDS: rOPINIRole 0.25 MG TABLET. PO SCH (20:24)
[2018-12-18 23:42] VITALS: BP 129/73
[2018-12-19 03:46] VITALS: BP 138/85
[2018-12-19] MEDS: PIPERACILLIN/TAZOBACTAM 4.5 GM in IV NORMAL SALINE 100ML 100 ML IV SCH ×5 (05:59→18:08)
[2018-12-19] MEDS: LEVOTHYROXINE 75 MCG TABLET PO SCH (05:59)
[2018-12-19 07:37] VITALS: BP 117/75
[2018-12-19] MEDS: IPRATRPIUM/ALBUTEROL 0.5/2.5MG 3 ML NEBU. NEB SCH ×4 (07:45→20:00)
[2018-12-19] MEDS: INSULIN LISPRO 300 UNITS/3 ML INSULN.PEN. SQ SCH ×3 (08:00→17:00)
--- NOTE | 2018-12-19 08:41 | PDOC ---
PULMONARY PROGRESS NOTES Subjective PT SOMEWHAT TIRED OF BEING IN HOSPITAL NOT MORE SOA Vitals Vital Signs Date Time Temp Pulse Resp B/P (MAP) Pulse Ox O2 Delivery O2 Flow Rate FiO2 12/19/18 07:45 94 Room Air 12/19/18 07:37 98.3 73 18 117/75 (89) 98.3 ROS: No Nausea General: Alert HEENT: Other (nc at perrl) Lungs: Crackles, Other (r ct) Cardiovascular: S1, S2 Abdomen: Soft, Non-tender Neuro Exam: Alert Extremities: No Edema Skin: Warm Labs Laboratory Tests Test 12/17/18 11:40 12/17/18 16:56 12/17/18 20:46 12/18/18 08:00 Glucose (Fingerstick) 178 mg/dL (70-99) 142 mg/dL (70-99) 178 mg/dL (70-99) White Blood Count 13.8 x10^3/uL (4.0-11.0) Red Blood Count 3.42 x10^6/uL (3.50-5.40) Hemoglobin 10.8 g/dL (12.0-15.5) Hematocrit 32.9 % (36.0-47.0) Mean Corpuscular Volume 96 fL (79-100) Mean Corpuscular Hemoglobin 32 pg (25-35) Mean Corpuscular Hemoglobin Concent 33 g/dL (31-37) Red Cell Distribution Width 14.0 % (11.5-14.5) Platelet Count 293 x10^3/uL (140-400) Sodium Level 135 mmol/L (136-145) Potassium Level 3.8 mmol/L (3.5-5.1) Chloride Level 99 mmol/L (98-107) Carbon Dioxide Level 29 mmol/L (21-32) Anion Gap 7 (6-14) Blood Urea Nitrogen 8 mg/dL (7-20) Creatinine 0.7 mg/dL (0.6-1.0) Estimated GFR (Cockcroft-Gault) 83.2 BUN/Creatinine Ratio 11 (6-20) Glucose Level 150 mg/dL (70-99) Calcium Level 8.8 mg/dL (8.5-10.1) Total Bilirubin 0.3 mg/dL (0.2-1.0) Aspartate Amino Transf (AST/SGOT) 32 U/L (15-37) Alanine Aminotransferase (ALT/SGPT) 46 U/L (14-59) Alkaline Phosphatase 82 U/L (46-116) Total Protein 6.1 g/dL (6.4-8.2) Albumin 1.8 g/dL (3.4-5.0) Albumin/Globulin Ratio 0.4 (1.0-1.7) Test 12/18/18 08:10 12/18/18 11:45 12/18/18 15:06 12/18/18 16:52 Glucose (Fingerstick) 142 mg/dL (70-99) 196 mg/dL (70-99) 160 mg/dL (70-99) 142 mg/dL (70-99) Test 12/18/18 21:28 12/19/18 07:23 Glucose (Fingerstick) 145 mg/dL (70-99) 140 mg/dL (70-99) Laboratory Tests Test 12/18/18 11:45 12/18/18 15:06 12/18/18 16:52 12/18/18 21:28 Glucose (Fingerstick) 196 mg/dL (70-99) 160 mg/dL (70-99) 142 mg/dL (70-99) 145 mg/dL (70-99) Test 12/19/18 07:23 Glucose (Fingerstick) 140 mg/dL (70-99) Medications Active Scripts Medications Dose Route/Sig Max Daily Dose Days Date Category Levothyroxine Sodium 25 Mcg Tablet 1 Tab PO DAILY 12/13/18 Reported Lorazepam 0.5 Mg Tablet 1 Tab PO DAILY 12/13/18 Reported Oxybutynin Chloride Er (Oxybutynin Chloride) 15 Mg Tab.er.24 1 Tab PO DAILY 12/13/18 Reported Oxybutynin Chloride Er (Oxybutynin Chloride) 10 Mg Tab.er.24 1 Tab PO DAILY 12/13/18 Reported Metformin Hcl Er (Metformin Hcl) 500 Mg Tab.er.24h 1,000 Mg PO BIDWMEALS 12/13/18 Reported Comments cxr reviewed 1. Small-caliber right chest tube. Marked decrease of right pleural effusion, now small to moderate. 2. Right midlung mass. Stable left upper lung nodule. 3. Right basilar airspace opacities may be atelectasis. Impression . IMPRESSION: 1. Large right-sided partially loculated pleural effusion, S/P CHEST TUBE 2. Large rounded density with fluid collection in the right lower lobe close to the pleura and another density in the left upper lobe with some central necrosis. REVIEWED THE REPEAT CT WITH DR BERRY WILL PROCEED WITH FNA OF [facility] 3. A 100-pound weight loss in the last 1 year. 4. A 40 years of tobacco use, suspect underlying severe chronic obstructive pulmonary disease. 5. Acute hypoxic respiratory failure secondary to large right pleural effusion and underlying chronic obstructive pulmonary disease. 6 CHYLOTHORAX TRIGLYCERIDE 61 Plan . CONTINUED DRAINAGE FNA OF [facility] PENDING WILL SEND FLUID FOR CHOLESTEROL AND TRIGLYCERIDE RULE OUT CHYLOTHORAX PENDING REPEAT CT CHEST REVIEWED SEE DICTATION ANTIBX D/W SANTA NGUYEN MD Dec 19, 2018 08:41
[2018-12-19] MEDS: LORazepam 0.5 MG TABLET PO SCH (09:00)
--- NOTE | 2018-12-19 09:19 | PN ---
DATE: 12/19/2018 SUBJECTIVE: The patient is resting, slightly propped up in bed, comfortably in no apparent distress. She is awake, alert. On questioning her, she did complain of right-sided chest pain; however, she did sleep very well last night. PHYSICAL EXAMINATION: GENERAL: When I examined her, she was pale, cachectic, but no jaundice, cyanosis or thyromegaly. No jugular venous distention. No limb edema. VITAL SIGNS: Her heart rate was 73, blood pressure 117/75, temperature was 98.3, respiratory rate was 18 and oxygen saturation was 95% on room air. HEAD, EYES, EARS, NOSE AND THROAT: Showed normocephalic, atraumatic. NECK: Supple. HEART: Showed normal first and second heart sounds. No gallop, rub or murmur. CHEST: Clear to auscultation. No crepitation or rhonchi. ABDOMEN: Distended, soft, nontender. NEUROLOGIC: She is definitely more awake, alert, responding appropriately. All cranial nerves intact. She moves extremities without difficulty. She has a thoracostomy tube in the right side of the chest. Her intake was 1550, output was 215. LABORATORY WORK: As of yesterday showed a serum sodium 135, potassium 3.8, chloride 99, bicarbonate 29, anion gap of 7, BUN 8, creatinine 0.7, estimated GFR was 83 mL/min. Her glucose 150, calcium was 8.8. Total bilirubin, AST, ALT, alkaline phosphatase were normal. Total protein was 6.1, albumin was 1.8. Her white cell count was 13,800, hemoglobin 10.8, hematocrit 32.9, MCV 96, and platelet count 293,000. Her prothrombin time was 15.2, INR 1.2. ASSESSMENT: 1. The patient has large right-sided partially loculated pleural effusion, status post chest tube placement. 2. Large, rounded density with fluid collection in the right lower lobe close to the pleura. Another density in the left upper lobe with some central necrosis, currently Dr. Charles, interventional radiologist will proceed with a fine needle aspiration of the left upper lobe. The patient had 100 pounds weight loss in 1 year, 40 years tobacco use, suspected underlying severe chronic obstructive pulmonary disease. Other medical problems include: a. Type 2 diabetes mellitus, seems better controlled. b. Hypothyroidism. c. Oropharyngeal candidiasis. d. Severe anorexia and poor appetite. e. Severe protein-calorie malnutrition with serum albumin is only 1.8 g/dL. PLAN: Obviously to proceed with the fine needle aspiration. MARK MARQUES MD DR: CHARLIE/rafael JOB#: [id number] / [id number]
--- NOTE | 2018-12-19 09:57 | RAD ---
EXAM: AP View of the chest DATE: 12/19/2018 9:00 AM INDICATION: Empyema, airspace follow-up COMPARISON: 12/18/2018, 12/17/2018 FINDINGS/ IMPRESSION: The heart is not enlarged. Mediastinal and hilar contours are stable. Left suprahilar and upper lung airspace opacities and nodular right lower lung as well as bilateral basilar airspace opacities are essentially unchanged. Small bilateral pleural effusions. No pneumothorax. No pleural effusion or pneumothorax. Electronically signed by: Beck Lane MD (12/19/2018 9:54 AM) [facility]
[2018-12-19] MEDS: metFORMIN XR 500 MG TAB.ER.24H PO SCH ×2 (10:07→18:08)
[2018-12-19] MEDS: OXYBUTYNIN CHLORIDE 5 MG TABLET PO SCH ×3 (10:08→21:40)
[2018-12-19] MEDS: LACTOBACILLUS RHAMNOSUS GG 1 CAPSULE. PO SCH ×2 (10:08→21:40)
[2018-12-19] MEDS: SERTRALINE 50 MG TABLET. PO SCH (10:08)
[2018-12-19] MEDS: ASCORBIC ACID 500 MG TABLET PO SCH (10:08)
--- NOTE | 2018-12-19 10:48 | PDOC ---
Infectious Disease Note Subjective Subjective feeling good ROS ROS no n/v/d/ Vital Sign Vital Signs Vital Signs Date Time Temp Pulse Resp B/P (MAP) Pulse Ox O2 Delivery O2 Flow Rate FiO2 12/19/18 07:45 94 Room Air 12/19/18 07:37 98.3 73 18 117/75 (89) 98.3 Physical Exam PHYSICAL EXAM GENERAL: Propped up in bed, alert, NAD HEENT: NKECHI, Oropharynx dry. Left lower molar decay NECK: Supple. LUNGS: Improved aeration, Right chest tube w/ purulent drainage. HEART: S1 and S2. ABDOMEN: Soft and nontender with bowel sounds present. EXTREMITIES: No gross edema or cyanosis. SKIN: Warm to touch. No signs of rash. NEUROLOGIC: Alert, answering questions appropriately PIV Labs Lab Laboratory Tests Test 12/18/18 11:45 12/18/18 15:06 12/18/18 16:52 12/18/18 21:28 Glucose (Fingerstick) 196 mg/dL (70-99) 160 mg/dL (70-99) 142 mg/dL (70-99) 145 mg/dL (70-99) Test 12/19/18 07:23 Glucose (Fingerstick) 140 mg/dL (70-99) Micro ANAEROBIC-AEROBIC CULTURE Preliminary Preliminary report ANAEROBIC RES 1 Preliminary Comment No anaerobes recovered in 48 hours. AEROBIC CULT Preliminary Preliminary report AEROBIC RES 1 Preliminary Comment Streptococcus intermedius 4+ GRAM STAIN Final Final report GRAM STAIN RES 1 Final Comment No white blood cells seen. GRAM STAIN RES 2 Final No organisms seen Performed at: - [facility], [place], [place] [id number] [employer] Relay Tester: SAHRA Buchanan MD, Phone: [phone] Objective Assessment Empyema s/p right chest tube placement 12/14. Streptococcus intermedius -ph 6.20. WBC >163,000. Bilateral lung masses with central necrosis, malignancy not ruled out. Leukocytosis - better Thrush Sulfa allergy Tooth decay Tobaccoism COPD DM Hypothyroidism Plan Plan of Care Continue Zosyn Nystatin swish and swallow to d/c sec to bad taste may be thoracic duct injury , TG and chylomicron pending ct chest noted d/w biopsy pending JESSICA YANEZ MD Dec 19, 2018 10:48
[2018-12-19] MEDS: DRONABINOL 2.5 MG CAPSULE. PO SCH ×2 (11:30→16:30)
[2018-12-19 11:36] VITALS: BP 117/70
[2018-12-19 15:11] LABS: BF TRIGLYCERIDES 61 mg/dL (.)
[2018-12-19 15:59] VITALS: BP 124/80
[2018-12-19] MEDS: HYDROcodone/APAP 5/325MG 1 TAB TABLET PO PRN ×2 (18:08→22:07)
[2018-12-19 19:25] VITALS: BP 117/75
[2018-12-19] MEDS: rOPINIRole 0.25 MG TABLET. PO SCH (21:40)
[2018-12-19 22:54] VITALS: BP 122/70
[2018-12-20 03:30] VITALS: BP 120/66
[2018-12-20] MEDS: LEVOTHYROXINE 75 MCG TABLET PO SCH (06:00)
[2018-12-20] MEDS: PIPERACILLIN/TAZOBACTAM 4.5 GM in IV NORMAL SALINE 100ML 100 ML IV SCH ×5 (06:00→17:44)
[2018-12-20] MEDS: IPRATRPIUM/ALBUTEROL 0.5/2.5MG 3 ML NEBU. NEB SCH ×4 (07:38→19:44)
[2018-12-20 07:58] VITALS: BP 134/86
[2018-12-20] MEDS: INSULIN LISPRO 300 UNITS/3 ML INSULN.PEN. SQ SCH ×3 (08:00→17:00)
[2018-12-20] MEDS ORDERED: MIDAZOLAM HCL/PF 2 MG/2 ML VIAL. ONE (08:39)
[2018-12-20] MEDS ORDERED: fentaNYL PF VIAL 100 MCG/2 ML VIAL ONE (08:39)
[2018-12-20] MEDS: LORazepam 0.5 MG TABLET PO SCH (09:00)
[2018-12-20] MEDS: metFORMIN XR 500 MG TAB.ER.24H PO SCH ×2 (10:13→17:43)
[2018-12-20] MEDS: ASCORBIC ACID 500 MG TABLET PO SCH (10:13)
[2018-12-20] MEDS: OXYBUTYNIN CHLORIDE 5 MG TABLET PO SCH ×3 (10:13→21:09)
[2018-12-20] MEDS: LACTOBACILLUS RHAMNOSUS GG 1 CAPSULE. PO SCH ×2 (10:14→21:09)
[2018-12-20] MEDS: SERTRALINE 50 MG TABLET. PO SCH (10:14)
--- NOTE | 2018-12-20 11:11 | PDOC ---
Provider Note Provider Note The diagnosis of chylothorax based on the triglyceride count of 61 mg/dL, is equivocal. A TGL count of >110 is required for diagnosis, whereas counts <50 exclude chylothorax. Furthermore, chylothoraces from thoracic duct injuries have large daily outputs (> 1 lit) which is not the case here. 50-100cc/day of pleural fluid drainage is not what you see in a chylothorax. In addition, the pleural fluid analysis shows low pH, high WBC and strep species which makes it more likely to be infectious etiology. Can send fluid for chylomicrons to confirm. FERNANDO BERG MD Dec 20, 2018 11:11
--- NOTE | 2018-12-20 11:20 | PDOC ---
Infectious Disease Note Subjective Subjective feeling good ROS ROS no n/v/d/ Vital Sign Vital Signs Vital Signs Date Time Temp Pulse Resp B/P (MAP) Pulse Ox O2 Delivery O2 Flow Rate FiO2 12/20/18 07:58 97.5 75 20 134/86 (102) 93 Room Air 97.5 12/19/18 23:55 2.0 Physical Exam PHYSICAL EXAM GENERAL: Propped up in bed, alert, NAD HEENT: NKECHI, Oropharynx dry. Left lower molar decay NECK: Supple. LUNGS: Improved aeration, Right chest tube w/ purulent drainage. HEART: S1 and S2. ABDOMEN: Soft and nontender with bowel sounds present. EXTREMITIES: No gross edema or cyanosis. SKIN: Warm to touch. No signs of rash. NEUROLOGIC: Alert, answering questions appropriately PIV Labs Lab Laboratory Tests Test 12/19/18 11:20 12/19/18 16:59 12/19/18 20:53 12/20/18 07:47 Glucose (Fingerstick) 133 mg/dL (70-99) 131 mg/dL (70-99) 199 mg/dL (70-99) 134 mg/dL (70-99) Micro ANAEROBIC-AEROBIC CULTURE Preliminary Preliminary report ANAEROBIC RES 1 Preliminary Comment No anaerobes recovered in 48 hours. AEROBIC CULT Preliminary Preliminary report AEROBIC RES 1 Preliminary Comment Streptococcus intermedius 4+ GRAM STAIN Final Final report GRAM STAIN RES 1 Final Comment No white blood cells seen. GRAM STAIN RES 2 Final No organisms seen Performed at: - [facility] [address], [place], [place] [id number] [employer] Press Tender: SAHRA Buchanan MD, Phone: [phone] Objective Assessment Empyema s/p right chest tube placement 12/14. Streptococcus intermedius -ph 6.20. WBC >163,000. Bilateral lung masses with central necrosis, malignancy not ruled out. Leukocytosis - better Thrush Sulfa allergy Tooth decay Tobaccoism COPD DM Hypothyroidism Plan Plan of Care Continue Zosyn Nystatin swish and swallow to d/c sec to bad taste may be thoracic duct injury , chylomicron pending ct chest noted d/w JESSICA YANEZ MD Dec 20, 2018 11:20
--- NOTE | 2018-12-20 11:28 | PDOC ---
PULMONARY PROGRESS NOTES Subjective NOT MORE SOA Vitals Vital Signs Date Time Temp Pulse Resp B/P (MAP) Pulse Ox O2 Delivery O2 Flow Rate FiO2 12/20/18 07:58 97.5 75 20 134/86 (102) 93 Room Air 97.5 12/19/18 23:55 2.0 ROS: No Nausea General: Alert HEENT: Other (nc at perrl) Lungs: Crackles, Other (r ct) Cardiovascular: S1, S2 Abdomen: Soft, Non-tender Neuro Exam: Alert Extremities: No Edema Skin: Warm Labs Laboratory Tests Test 12/18/18 11:45 12/18/18 15:06 12/18/18 16:52 12/18/18 21:28 Glucose (Fingerstick) 196 mg/dL (70-99) 160 mg/dL (70-99) 142 mg/dL (70-99) 145 mg/dL (70-99) Test 12/19/18 07:23 12/19/18 11:20 12/19/18 16:59 12/19/18 20:53 Glucose (Fingerstick) 140 mg/dL (70-99) 133 mg/dL (70-99) 131 mg/dL (70-99) 199 mg/dL (70-99) Test 12/20/18 07:47 Glucose (Fingerstick) 134 mg/dL (70-99) Laboratory Tests Test 12/19/18 16:59 12/19/18 20:53 12/20/18 07:47 Glucose (Fingerstick) 131 mg/dL (70-99) 199 mg/dL (70-99) 134 mg/dL (70-99) Medications Active Scripts Medications Dose Route/Sig Max Daily Dose Days Date Category Levothyroxine Sodium 25 Mcg Tablet 1 Tab PO DAILY 12/13/18 Reported Lorazepam 0.5 Mg Tablet 1 Tab PO DAILY 12/13/18 Reported Oxybutynin Chloride Er (Oxybutynin Chloride) 15 Mg Tab.er.24 1 Tab PO DAILY 12/13/18 Reported Oxybutynin Chloride Er (Oxybutynin Chloride) 10 Mg Tab.er.24 1 Tab PO DAILY 12/13/18 Reported Metformin Hcl Er (Metformin Hcl) 500 Mg Tab.er.24h 1,000 Mg PO BIDWMEALS 12/13/18 Reported Comments cxr reviewed 1. Small-caliber right chest tube. Marked decrease of right pleural effusion, now small to moderate. 2. Right midlung mass. Stable left upper lung nodule. 3. Right basilar airspace opacities may be atelectasis. Impression . IMPRESSION: 1. Large right-sided partially loculated pleural effusion, S/P CHEST TUBE 2. Large rounded density with fluid collection in the right lower lobe close to the pleura and another density in the left upper lobe with some central necrosis. I THINK THIS IS ALL RELATED TO INFECTION 3. A 100-pound weight loss in the last 1 year. 4. A 40 years of tobacco use, suspect underlying severe chronic obstructive pulmonary disease. 5. Acute hypoxic respiratory failure secondary to large right pleural effusion and underlying chronic obstructive pulmonary disease. 6 DOES NOT MEET CRITERIA FOR CHYLOTHORAX TRIGLYCERIDE 61 7. STREP INTERMEDIUS EMPYEMA ANAEROBIC-AEROBIC CULTURE Final Preliminary report Final report ANAEROBIC RES 1 Final Comment No anaerobes recovered in 48 hours. No anaerobic growth in 72 hours. AEROBIC CULT Preliminary Preliminary report AEROBIC RES 1 Preliminary Comment Streptococcus intermedius 4+ GRAM STAIN Final Final report GRAM STAIN RES 1 Final Comment No white blood cells seen. GRAM STAIN RES 2 Final No organisms seen Plan . CONTINUED DRAINAGE HAD OVER 200 IN 24 HOUR PERIOD DOES NOT MEET CRITERIA FOR CHYLOTHORAX D/W DR BERRY AND DR YANEZ WILL HOLD OFF ON BIOPSY REPEAT CT CHEST REVIEWED SEE DICTATION ANTIBX D/W SANTA NGUYEN MD Dec 20, 2018 11:28
[2018-12-20] MEDS: DRONABINOL 2.5 MG CAPSULE. PO SCH ×2 (11:30→16:30)
[2018-12-20 11:59] VITALS: BP 123/80
--- NOTE | 2018-12-20 13:24 | PN ---
DATE: 12/20/2018 SUBJECTIVE: The patient is resting, slightly propped up in bed, in no apparent respiratory distress. She is awake, alert. On questioning her, denied any chest pain or shortness of breath. Chest tube continued to have drainage from the right hemithorax. Apparently, the lung biopsy was canceled and she did grow Streptococcus intermedius and therefore, she will continue with thoracostomy to continue with IV antibiotic. Continue to monitor her blood sugar. PHYSICAL EXAMINATION: GENERAL: When I examined her this morning, she looked pale, cachectic, but no jaundice, cyanosis or thyromegaly. No jugular venous distension. No limb edema. VITAL SIGNS: Her heart rate was 75, blood pressure was 134/86, temperature was 97.5, respiratory rate was 20, and oxygen saturation was 93%. HEAD, EYES, EARS, NOSE AND THROAT: Normocephalic, atraumatic. NECK: Supple. HEART: Showed normal first and second heart sounds. No gallop or murmur. CHEST: Showed central trachea, equal bilateral expansion, air entry, vesicular sounds. No crepitation or rhonchi. She has a chest tube to the right hemithorax. ABDOMEN: Scaphoid, soft, nontender. NEUROLOGIC: She was awake, alert, responding appropriately. All cranial nerves intact. She moves extremities without difficulty. Her intake was 1700, output was 580. LABORATORY DATA: Her most recent white cell count was 13,800, hemoglobin 10.8, hematocrit 33, MCV 96, and platelet count 293,000. Her blood sugars seems to be reasonably controlled. ASSESSMENT: 1. Large right-sided partial loculated pleural effusion, status post chest tube placement. 2. Large, rounded density within the fluid collection in the right lower lobe close to the pleura and another density in the left upper lobe, some central necrosis. The patient has acute hypoxic respiratory failure secondary to large right-sided pleural effusion, underlying chronic obstructive pulmonary disease. The patient has 100-pound weight loss in the last year and 40-year tobacco use. PLAN: To continue with IV antibiotic. Continue with thoracostomy tube. Continue to monitor her blood sugar and adjust insulin as needed. MARK MARQUES MD DR: CHARLIE/rafael JOB#: [id number] / [id number]
[2018-12-20 15:49] VITALS: BP 138/80
--- NOTE | 2018-12-20 16:09 | RAD ---
Single view of the chest. 12/20/2018 1:15 PM Indication: Empyema. Comparison: Chest radiograph, yesterday Findings: Right thoracostomy tube is grossly unchanged. Rounded consolidation in the right lower lobe is similar. Left upper lobe consolidation appears slightly less dense radiographically consistent with recent CT findings. No pneumothorax is identified radiographically. Probable small residual right basilar fluid collection is seen. Minimal left pleural effusion also noted. IMPRESSION: 1. Similar appearance of the right chest including thoracostomy tube, residual pleural opacity, and right lower lobe rounded consolidation 2. Decreasing attenuation of the left upper lobe consolidation consistent with findings of CT scan. Findings favor infectious etiology 3. Small left pleural effusion and atelectasis Electronically signed by: Lior Baca MD (12/20/2018 4:06 PM) [id number]
[2018-12-20 19:53] VITALS: BP 121/75
[2018-12-20] MEDS: rOPINIRole 0.25 MG TABLET. PO SCH (21:09)
[2018-12-20] MEDS: HYDROcodone/APAP 5/325MG 1 TAB TABLET PO PRN (21:16)
[2018-12-20 23:50] VITALS: BP 127/70
[2018-12-21] MEDS: PIPERACILLIN/TAZOBACTAM 4.5 GM in IV NORMAL SALINE 100ML 100 ML IV SCH ×3 (00:26→12:22)
--- NOTE | 2018-12-21 03:25 | NUR ---
Chest tube dressing dated 12/16/18. When asked if it was okay to change dressing, pt declined and stated that she was hoping chest tube would come out on Monday. Explained protocol of daily dressing changes and the need to prevent infection; pt still declined. Will attempt to change dressing if pt becomes agreeable. Addendum: 12/21/18 at 0337 by RICARDO DOTY RN Amended: Links added.
[2018-12-21 03:52] VITALS: BP 162/75
[2018-12-21 05:30] LABS: HEMATOCRIT 31.1 % (36.0-47.0); HEMOGLOBIN 10.3 g/dL (12.0-15.5); RED BLOOD COUNT 3.24 x10^6/uL (3.50-5.40); RED CELL DISTRIBUTION WIDTH 14.2 % (11.5-14.5); WHITE BLOOD COUNT 16.1 x10^3/uL (4.0-11.0)
[2018-12-21 05:50] LABS: ALBUMIN 1.8 g/dL (3.4-5.0); ALBUMIN/GLOBULIN RATIO 0.4 (1.0-1.7); CALCIUM 8.5 mg/dL (8.5-10.1); CREATININE 0.8 mg/dL (0.6-1.0); GFR 71.3; POTASSIUM 3.9 mmol/L (3.5-5.1); TOTAL BILIRUBIN 0.2 mg/dL (0.2-1.0); TOTAL PROTEIN 6.1 g/dL (6.4-8.2)
[2018-12-21] MEDS: LEVOTHYROXINE 75 MCG TABLET PO SCH (06:14)
[2018-12-21 07:00] VITALS: BP 138/81
[2018-12-21] MEDS ORDERED: IPRATRPIUM/ALBUTEROL 0.5/2.5MG 3 ML NEBU. ONE (07:54)
[2018-12-21] MEDS: INSULIN LISPRO 300 UNITS/3 ML INSULN.PEN. SQ SCH ×3 (08:00→17:00)
[2018-12-21] MEDS: IPRATRPIUM/ALBUTEROL 0.5/2.5MG 3 ML NEBU. NEB SCH ×4 (08:13→20:31)
[2018-12-21] MEDS: metFORMIN XR 500 MG TAB.ER.24H PO SCH ×2 (08:27→17:41)
[2018-12-21] MEDS: ASCORBIC ACID 500 MG TABLET PO SCH (08:27)
[2018-12-21] MEDS: LACTOBACILLUS RHAMNOSUS GG 1 CAPSULE. PO SCH ×2 (08:27→22:06)
[2018-12-21] MEDS: OXYBUTYNIN CHLORIDE 5 MG TABLET PO SCH ×3 (08:27→22:06)
[2018-12-21] MEDS: SERTRALINE 50 MG TABLET. PO SCH (08:28)
--- NOTE | 2018-12-21 08:57 | PDOC ---
PULMONARY PROGRESS NOTES Subjective NOT MORE SOA WANTS TO GO HOME Vitals Vital Signs Date Time Temp Pulse Resp B/P (MAP) Pulse Ox O2 Delivery O2 Flow Rate FiO2 12/21/18 08:14 93 Room Air 12/21/18 07:00 98.1 80 16 138/81 (100) 98.1 ROS: No Nausea General: Alert HEENT: Other (nc at perrl) Lungs: Crackles, Other (r ct) Cardiovascular: S1, S2 Abdomen: Soft, Non-tender Neuro Exam: Alert Extremities: No Edema Skin: Warm Labs Laboratory Tests Test 12/19/18 11:20 12/19/18 16:59 12/19/18 20:53 12/20/18 07:47 Glucose (Fingerstick) 133 mg/dL (70-99) 131 mg/dL (70-99) 199 mg/dL (70-99) 134 mg/dL (70-99) Test 12/20/18 12:04 12/20/18 17:02 12/20/18 19:36 12/21/18 04:30 Glucose (Fingerstick) 128 mg/dL (70-99) 127 mg/dL (70-99) 165 mg/dL (70-99) White Blood Count 16.1 x10^3/uL (4.0-11.0) Red Blood Count 3.24 x10^6/uL (3.50-5.40) Hemoglobin 10.3 g/dL (12.0-15.5) Hematocrit 31.1 % (36.0-47.0) Mean Corpuscular Volume 96 fL (79-100) Mean Corpuscular Hemoglobin 32 pg (25-35) Mean Corpuscular Hemoglobin Concent 33 g/dL (31-37) Red Cell Distribution Width 14.2 % (11.5-14.5) Platelet Count 268 x10^3/uL (140-400) Sodium Level 135 mmol/L (136-145) Potassium Level 3.9 mmol/L (3.5-5.1) Chloride Level 100 mmol/L (98-107) Carbon Dioxide Level 30 mmol/L (21-32) Anion Gap 5 (6-14) Blood Urea Nitrogen 9 mg/dL (7-20) Creatinine 0.8 mg/dL (0.6-1.0) Estimated GFR (Cockcroft-Gault) 71.3 BUN/Creatinine Ratio 11 (6-20) Glucose Level 116 mg/dL (70-99) Calcium Level 8.5 mg/dL (8.5-10.1) Total Bilirubin 0.2 mg/dL (0.2-1.0) Aspartate Amino Transf (AST/SGOT) 17 U/L (15-37) Alanine Aminotransferase (ALT/SGPT) 25 U/L (14-59) Alkaline Phosphatase 66 U/L (46-116) Total Protein 6.1 g/dL (6.4-8.2) Albumin 1.8 g/dL (3.4-5.0) Albumin/Globulin Ratio 0.4 (1.0-1.7) Laboratory Tests Test 12/20/18 12:04 12/20/18 17:02 12/20/18 19:36 12/21/18 04:30 Glucose (Fingerstick) 128 mg/dL (70-99) 127 mg/dL (70-99) 165 mg/dL (70-99) White Blood Count 16.1 x10^3/uL (4.0-11.0) Red Blood Count 3.24 x10^6/uL (3.50-5.40) Hemoglobin 10.3 g/dL (12.0-15.5) Hematocrit 31.1 % (36.0-47.0) Mean Corpuscular Volume 96 fL (79-100) Mean Corpuscular Hemoglobin 32 pg (25-35) Mean Corpuscular Hemoglobin Concent 33 g/dL (31-37) Red Cell Distribution Width 14.2 % (11.5-14.5) Platelet Count 268 x10^3/uL (140-400) Sodium Level 135 mmol/L (136-145) Potassium Level 3.9 mmol/L (3.5-5.1) Chloride Level 100 mmol/L (98-107) Carbon Dioxide Level 30 mmol/L (21-32) Anion Gap 5 (6-14) Blood Urea Nitrogen 9 mg/dL (7-20) Creatinine 0.8 mg/dL (0.6-1.0) Estimated GFR (Cockcroft-Gault) 71.3 BUN/Creatinine Ratio 11 (6-20) Glucose Level 116 mg/dL (70-99) Calcium Level 8.5 mg/dL (8.5-10.1) Total Bilirubin 0.2 mg/dL (0.2-1.0) Aspartate Amino Transf (AST/SGOT) 17 U/L (15-37) Alanine Aminotransferase (ALT/SGPT) 25 U/L (14-59) Alkaline Phosphatase 66 U/L (46-116) Total Protein 6.1 g/dL (6.4-8.2) Albumin 1.8 g/dL (3.4-5.0) Albumin/Globulin Ratio 0.4 (1.0-1.7) Medications Active Scripts Medications Dose Route/Sig Max Daily Dose Days Date Category Levothyroxine Sodium 25 Mcg Tablet 1 Tab PO DAILY 12/13/18 Reported Lorazepam 0.5 Mg Tablet 1 Tab PO DAILY 12/13/18 Reported Oxybutynin Chloride Er (Oxybutynin Chloride) 15 Mg Tab.er.24 1 Tab PO DAILY 12/13/18 Reported Oxybutynin Chloride Er (Oxybutynin Chloride) 10 Mg Tab.er.24 1 Tab PO DAILY 12/13/18 Reported Metformin Hcl Er (Metformin Hcl) 500 Mg Tab.er.24h 1,000 Mg PO BIDWMEALS 12/13/18 Reported Comments cxr reviewed 1. Small-caliber right chest tube. Marked decrease of right pleural effusion, now small to moderate. 2. Right midlung mass. Stable left upper lung nodule. 3. Right basilar airspace opacities may be atelectasis. Impression . IMPRESSION: 1. Large right-sided partially loculated pleural effusion, S/P CHEST TUBE/EMPYEMA STREP INTERMEDIUS 2. Large rounded density with fluid collection in the right lower lobe close to the pleura and another density in the left upper lobe with some central necrosis. I THINK THIS IS ALL RELATED TO INFECTION 3. A 100-pound weight loss in the last 1 year. 4. A 40 years of tobacco use, suspect underlying severe chronic obstructive pulmonary disease. 5. Acute hypoxic respiratory failure secondary to large right pleural effusion and underlying chronic obstructive pulmonary disease. 6 DOES NOT MEET CRITERIA FOR CHYLOTHORAX TRIGLYCERIDE 61 7. STREP INTERMEDIUS EMPYEMA ANAEROBIC-AEROBIC CULTURE Final Preliminary report Final report ANAEROBIC RES 1 Final Comment No anaerobes recovered in 48 hours. No anaerobic growth in 72 hours. AEROBIC CULT Preliminary Preliminary report AEROBIC RES 1 Preliminary Comment Streptococcus intermedius 4+ GRAM STAIN Final Final report GRAM STAIN RES 1 Final Comment No white blood cells seen. GRAM STAIN RES 2 Final No organisms seen Plan . HOME WHEN FLUID DRAINAGE DECREASES CONTINUED DRAINAGE HAD OVER 200 IN 24 HOUR PERIOD DOES NOT MEET CRITERIA FOR CHYLOTHORAX D/W DR BERRY AND DR YANEZ WILL HOLD OFF ON BIOPSY REPEAT CT CHEST REVIEWED SEE DICTATION ANTIBX D/W SANTA NGUYEN MD Dec 21, 2018 08:57
[2018-12-21] MEDS: LORazepam 0.5 MG TABLET PO SCH (09:00)
[2018-12-21 11:00] VITALS: BP 135/87
[2018-12-21] MEDS: DRONABINOL 2.5 MG CAPSULE. PO SCH ×2 (11:30→16:30)
--- NOTE | 2018-12-21 11:50 | RAD ---
Single AP view of the chest. Comparison: 12/20/2018. Indication: Empyema Findings: Right basilar chest tube is reidentified. The heart is not enlarged. No pneumothorax. There is persistent small bibasilar effusions. Pseudotumor on the right major fissure is resolving due to presumed decreasing pleural fluid persistent interstitial opacity of the right lung. Impression: 1. Persistent but improving right pleural effusion. Chest tubes in place. Electronically signed by: Hemant Fischer MD (12/21/2018 11:47 AM) [facility]
--- NOTE | 2018-12-21 13:17 | PDOC ---
Infectious Disease Note Subjective Subjective feeling good ROS ROS no n/v/d/sob Vital Sign Vital Signs Vital Signs Date Time Temp Pulse Resp B/P (MAP) Pulse Ox O2 Delivery O2 Flow Rate FiO2 12/21/18 12:49 93 Room Air 12/21/18 11:00 98.2 87 16 135/87 (103) 98.2 Physical Exam PHYSICAL EXAM GENERAL: Propped up in bed, alert, NAD HEENT: NKECHI, Oropharynx dry. Left lower molar decay NECK: Supple. LUNGS: Improved aeration, Right chest tube w/ purulent drainage. HEART: S1 and S2. ABDOMEN: Soft and nontender with bowel sounds present. EXTREMITIES: No gross edema or cyanosis. SKIN: Warm to touch. No signs of rash. NEUROLOGIC: Alert, answering questions appropriately PIV Labs Lab Laboratory Tests Test 12/20/18 17:02 12/20/18 19:36 12/21/18 04:30 12/21/18 08:34 Glucose (Fingerstick) 127 mg/dL (70-99) 165 mg/dL (70-99) 124 mg/dL (70-99) White Blood Count 16.1 x10^3/uL (4.0-11.0) Red Blood Count 3.24 x10^6/uL (3.50-5.40) Hemoglobin 10.3 g/dL (12.0-15.5) Hematocrit 31.1 % (36.0-47.0) Mean Corpuscular Volume 96 fL (79-100) Mean Corpuscular Hemoglobin 32 pg (25-35) Mean Corpuscular Hemoglobin Concent 33 g/dL (31-37) Red Cell Distribution Width 14.2 % (11.5-14.5) Platelet Count 268 x10^3/uL (140-400) Sodium Level 135 mmol/L (136-145) Potassium Level 3.9 mmol/L (3.5-5.1) Chloride Level 100 mmol/L (98-107) Carbon Dioxide Level 30 mmol/L (21-32) Anion Gap 5 (6-14) Blood Urea Nitrogen 9 mg/dL (7-20) Creatinine 0.8 mg/dL (0.6-1.0) Estimated GFR (Cockcroft-Gault) 71.3 BUN/Creatinine Ratio 11 (6-20) Glucose Level 116 mg/dL (70-99) Calcium Level 8.5 mg/dL (8.5-10.1) Total Bilirubin 0.2 mg/dL (0.2-1.0) Aspartate Amino Transf (AST/SGOT) 17 U/L (15-37) Alanine Aminotransferase (ALT/SGPT) 25 U/L (14-59) Alkaline Phosphatase 66 U/L (46-116) Total Protein 6.1 g/dL (6.4-8.2) Albumin 1.8 g/dL (3.4-5.0) Albumin/Globulin Ratio 0.4 (1.0-1.7) Test 12/21/18 12:04 Glucose (Fingerstick) 139 mg/dL (70-99) Micro ANAEROBIC-AEROBIC CULTURE Preliminary Preliminary report ANAEROBIC RES 1 Preliminary Comment No anaerobes recovered in 48 hours. AEROBIC CULT Preliminary Preliminary report AEROBIC RES 1 Preliminary Comment Streptococcus intermedius 4+ GRAM STAIN Final Final report GRAM STAIN RES 1 Final Comment No white blood cells seen. GRAM STAIN RES 2 Final No organisms seen Performed at: - [facility], [place], [place] [id number] Info Analyst: SAHRA Buchanan MD, Phone: [phone] Objective Assessment Empyema s/p right chest tube placement 12/14. Streptococcus intermedius -ph 6.20. WBC >163,000. Bilateral lung masses with central necrosis, malignancy not ruled out. Leukocytosis - better Thrush Sulfa allergy Tooth decay Tobaccoism COPD DM Hypothyroidism Plan Plan of Care Change Zosyn to cefazolin Nystatin swish and swallow to d/c sec to bad taste may be thoracic duct injury , chylomicron pending ct chest noted d/w JESSICA YANEZ MD Dec 21, 2018 13:17
[2018-12-21] MEDS ORDERED: ceFAZolin SODIUM 1 GM in IV DEXTROSE 5% 50 ML IV SCH (14:00)
[2018-12-21 15:00] VITALS: BP 125/69
[2018-12-21] MEDS: ceFAZolin SODIUM IV Push 1 GM VIAL. IVP SCH ×2 (15:09→22:07)
[2018-12-21 19:40] VITALS: BP 135/74
[2018-12-21] MEDS: rOPINIRole 0.25 MG TABLET. PO SCH (22:06)
[2018-12-21] MEDS: HYDROcodone/APAP 5/325MG 1 TAB TABLET PO PRN (22:06)
[2018-12-21 22:07] LABS: CHOLESTEROL BF 37 mg/dL (.)
[2018-12-21 23:40] VITALS: BP 138/78
[2018-12-22 03:40] VITALS: BP 129/71
--- NOTE | 2018-12-22 05:06 | PN ---
DATE: 12/21/2018 SUBJECTIVE: The patient is resting, slightly propped up in bed, in no apparent respiratory distress. She is awake, alert. On questioning her, denied any complaint. Her chest x-ray showed that she is continuing to have residual pleural opacity in the right lower lobe, rounded consolidation. She has also decreasing attenuation of the left upper lobe consolidation, consistent with findings of the CT scan. Findings favor infectious etiology. She has small left-sided pleural effusion and atelectasis. OBJECTIVE: GENERAL: On examining her, she was pale, cachectic, but not jaundice or cyanosed. No lymphadenopathy, no thyromegaly. No jugular venous distention. No limb edema. VITAL SIGNS: Her heart rate was 80, blood pressure was 138/81, temperature was 98, respiratory rate was 16, and oxygen saturation was 93% on room air. HEAD, EYES, EARS, NOSE, AND THROAT: Showed normocephalic, atraumatic. NECK: Supple. HEART: Showed normal first and second heart sounds with no gallop, rub or murmur. CHEST: Clear to auscultation. No crepitation or rhonchi. ABDOMEN: Scaphoid, soft, nontender. NEUROLOGICALLY: She is awake, alert, responding appropriately. All cranial nerves intact. She moves extremities without difficulty. Her intake was 1500, output was 260. As of this morning, her serum sodium 135, potassium 3.9, chloride 100, bicarbonate 30, anion gap of 5, BUN 9, creatinine 0.8, estimated GFR was 71 mL per minute. Her glucose 116, calcium was 8.5. Total bilirubin, AST, ALT, alkaline phosphatase were normal. Total protein was 6.1, albumin was 1.8. Her white cell count was 16,000, hemoglobin 10, hematocrit 31, MCV 96, and platelet count 268,000. The analysis of the pleural fluid was not consistent with chylothorax. ASSESSMENT: 1. Large right side partially loculated pleural effusion, status post chest tube placement. 2. Large, rounded opacity within the fluid collection in the right lower lobe close to the pleura, and another density in the left upper lobe with some central necrosis. 3. Acute hypoxic respiratory failure, multifactorial, including large right-sided pleural effusion. 4. Chronic obstructive pulmonary disease. 5. Weight loss more than 100 pounds over the last year. PLAN: The plan is obviously to continue with IV antibiotic. Continue with thoracostomy tube. Continue to monitor her blood sugar and adjust insulin as needed. Continue with physical and occupational therapy. MARK MARQUES MD DR: CHARLIE/rafael JOB#: [id number] / [id number]
[2018-12-22] MEDS: LEVOTHYROXINE 75 MCG TABLET PO SCH (05:57)
[2018-12-22] MEDS: ceFAZolin SODIUM IV Push 1 GM VIAL. IVP SCH ×3 (05:57→22:04)
--- NOTE | 2018-12-22 07:50 | RAD ---
EXAM: AP View of the chest DATE: 12/22/2018 9:00 AM INDICATION: Empyema, dyspnea, follow-up COMPARISON: 12/21/2018, 12/20/2018 FINDINGS/ IMPRESSION: The cardiac mediastinal silhouette is stable. Bilateral airspace opacities particularly in the bilateral lung bases are essentially stable with equivocal improvement in the left lung base. Small bilateral pleural effusions. Right chest tube is in place. No pneumothorax. Electronically signed by: Beck Lane MD (12/22/2018 7:47 AM) [facility]
[2018-12-22] MEDS: IPRATRPIUM/ALBUTEROL 0.5/2.5MG 3 ML NEBU. NEB SCH ×4 (07:51→20:08)
[2018-12-22 07:55] VITALS: BP 166/95
[2018-12-22] MEDS: INSULIN LISPRO 300 UNITS/3 ML INSULN.PEN. SQ SCH ×3 (07:58→17:00)
--- NOTE | 2018-12-22 09:23 | PDOC ---
PULMONARY PROGRESS NOTES Subjective sob better, has occ cough WANTS TO GO HOME Vitals Vital Signs Date Time Temp Pulse Resp B/P (MAP) Pulse Ox O2 Delivery O2 Flow Rate FiO2 12/22/18 07:55 98.1 118 18 166/95 (118) 92 Room Air 98.1 ROS: No Nausea General: Alert HEENT: Other (nc at perrl) Lungs: Crackles, Other (r ct) Cardiovascular: S1, S2 Abdomen: Soft, Non-tender Neuro Exam: Alert Extremities: No Edema Skin: Warm Labs Laboratory Tests Test 12/20/18 12:04 12/20/18 17:02 12/20/18 19:36 12/21/18 04:30 Glucose (Fingerstick) 128 mg/dL (70-99) 127 mg/dL (70-99) 165 mg/dL (70-99) White Blood Count 16.1 x10^3/uL (4.0-11.0) Red Blood Count 3.24 x10^6/uL (3.50-5.40) Hemoglobin 10.3 g/dL (12.0-15.5) Hematocrit 31.1 % (36.0-47.0) Mean Corpuscular Volume 96 fL (79-100) Mean Corpuscular Hemoglobin 32 pg (25-35) Mean Corpuscular Hemoglobin Concent 33 g/dL (31-37) Red Cell Distribution Width 14.2 % (11.5-14.5) Platelet Count 268 x10^3/uL (140-400) Sodium Level 135 mmol/L (136-145) Potassium Level 3.9 mmol/L (3.5-5.1) Chloride Level 100 mmol/L (98-107) Carbon Dioxide Level 30 mmol/L (21-32) Anion Gap 5 (6-14) Blood Urea Nitrogen 9 mg/dL (7-20) Creatinine 0.8 mg/dL (0.6-1.0) Estimated GFR (Cockcroft-Gault) 71.3 BUN/Creatinine Ratio 11 (6-20) Glucose Level 116 mg/dL (70-99) Calcium Level 8.5 mg/dL (8.5-10.1) Total Bilirubin 0.2 mg/dL (0.2-1.0) Aspartate Amino Transf (AST/SGOT) 17 U/L (15-37) Alanine Aminotransferase (ALT/SGPT) 25 U/L (14-59) Alkaline Phosphatase 66 U/L (46-116) Total Protein 6.1 g/dL (6.4-8.2) Albumin 1.8 g/dL (3.4-5.0) Albumin/Globulin Ratio 0.4 (1.0-1.7) Test 12/21/18 08:34 12/21/18 12:04 12/21/18 16:56 12/21/18 21:00 Glucose (Fingerstick) 124 mg/dL (70-99) 139 mg/dL (70-99) 157 mg/dL (70-99) 159 mg/dL (70-99) Test 12/22/18 07:00 Glucose (Fingerstick) 131 mg/dL (70-99) Laboratory Tests Test 12/21/18 12:04 12/21/18 16:56 12/21/18 21:00 12/22/18 07:00 Glucose (Fingerstick) 139 mg/dL (70-99) 157 mg/dL (70-99) 159 mg/dL (70-99) 131 mg/dL (70-99) Medications Active Scripts Medications Dose Route/Sig Max Daily Dose Days Date Category Levothyroxine Sodium 25 Mcg Tablet 1 Tab PO DAILY 12/13/18 Reported Lorazepam 0.5 Mg Tablet 1 Tab PO DAILY 12/13/18 Reported Oxybutynin Chloride Er (Oxybutynin Chloride) 15 Mg Tab.er.24 1 Tab PO DAILY 12/13/18 Reported Oxybutynin Chloride Er (Oxybutynin Chloride) 10 Mg Tab.er.24 1 Tab PO DAILY 12/13/18 Reported Metformin Hcl Er (Metformin Hcl) 500 Mg Tab.er.24h 1,000 Mg PO BIDWMEALS 12/13/18 Reported Comments cxr reviewed The cardiac mediastinal silhouette is stable. Bilateral airspace opacities particularly in the bilateral lung bases are essentially stable with equivocal improvement in the left lung base. Small bilateral pleural effusions. Right chest tube is in place. No pneumothorax. Impression . IMPRESSION: 1. Large right-sided partially loculated pleural effusion, S/P CHEST TUBE/EMPYEMA STREP INTERMEDIUS 2. Large rounded density with fluid collection in the right lower lobe close to the pleura and another density in the left upper lobe with some central necrosis. I THINK THIS IS ALL RELATED TO INFECTION 3. A 100-pound weight loss in the last 1 year. 4. A 40 years of tobacco use, suspect underlying severe chronic obstructive pulmonary disease. 5. Acute hypoxic respiratory failure secondary to large right pleural effusion and underlying chronic obstructive pulmonary disease. 6 DOES NOT MEET CRITERIA FOR CHYLOTHORAX TRIGLYCERIDE 61 7. STREP INTERMEDIUS EMPYEMA ANAEROBIC-AEROBIC CULTURE Final Preliminary report Final report ANAEROBIC RES 1 Final Comment No anaerobes recovered in 48 hours. No anaerobic growth in 72 hours. AEROBIC CULT Preliminary Preliminary report AEROBIC RES 1 Preliminary Comment Streptococcus intermedius 4+ GRAM STAIN Final Final report GRAM STAIN RES 1 Final Comment No white blood cells seen. GRAM STAIN RES 2 Final No organisms seen Plan . cont ct, increase suction to -40, as cxr shows some pleural fluid on r side BD HOME WHEN FLUID DRAINAGE DECREASES DOES NOT MEET CRITERIA FOR CHYLOTHORAX dr pederson, D/W DR BERRY AND DR YANEZ WILL HOLD OFF ON BIOPSY cont ANTIBX per id D/W rn, pt GREG DE LA FUENTE MD Dec 22, 2018 09:23
[2018-12-22] MEDS: ASCORBIC ACID 500 MG TABLET PO SCH (09:25)
[2018-12-22] MEDS: OXYBUTYNIN CHLORIDE 5 MG TABLET PO SCH ×3 (09:25→20:35)
[2018-12-22] MEDS: LACTOBACILLUS RHAMNOSUS GG 1 CAPSULE. PO SCH ×2 (09:25→20:35)
[2018-12-22] MEDS: LORazepam 0.5 MG TABLET PO SCH (09:25)
[2018-12-22] MEDS: SERTRALINE 50 MG TABLET. PO SCH (09:25)
[2018-12-22] MEDS: metFORMIN XR 500 MG TAB.ER.24H PO SCH ×2 (10:09→17:15)
[2018-12-22] MEDS ORDERED: LORazepam 0.5 MG TABLET PO PRN (11:15)
[2018-12-22 11:21] VITALS: BP 150/83
[2018-12-22] MEDS: DRONABINOL 2.5 MG CAPSULE. PO SCH ×2 (11:30→15:23)
--- NOTE | 2018-12-22 12:49 | PDOC ---
Infectious Disease Note Subjective Subjective Feeling alright Appetite improved Cough w/ phlegm production Denies SOA/chest pain/F/C/S/N/V/D ROS ROS per HPI Vital Sign Vital Signs Vital Signs Date Time Temp Pulse Resp B/P (MAP) Pulse Ox O2 Delivery O2 Flow Rate FiO2 12/22/18 12:04 92 Room Air 12/22/18 11:21 98.0 105 18 150/83 (105) 98.0 Physical Exam PHYSICAL EXAM GENERAL: Propped up in bed, alert, eating HEENT: NKECHI, Oropharynx dry. Left lower molar decay NECK: Supple. LUNGS: Improved aeration, Right chest tube w/ purulent drainage. HEART: S1 and S2. ABDOMEN: Soft and nontender with bowel sounds present. EXTREMITIES: No gross edema or cyanosis. SKIN: Warm to touch. No signs of rash. NEUROLOGIC: Alert, answering questions appropriately PIV Labs Lab Laboratory Tests Test 12/21/18 16:56 12/21/18 21:00 12/22/18 07:00 12/22/18 11:33 Glucose (Fingerstick) 157 mg/dL (70-99) 159 mg/dL (70-99) 131 mg/dL (70-99) 135 mg/dL (70-99) IMPRESSION: The cardiac mediastinal silhouette is stable. Bilateral airspace opacities particularly in the bilateral lung bases are essentially stable with equivocal improvement in the left lung base. Small bilateral pleural effusions. Right chest tube is in place. No pneumothorax. Micro CXR, 12/15 1. Small-caliber right chest tube. Marked decrease of right pleural effusion, now small to moderate. 2. Right midlung mass. Stable left upper lung nodule. 3. Right basilar airspace opacities may be atelectasis. Objective Assessment Empyema s/p right chest tube placement 12/14. Streptococcus intermedius -ph 6.20. WBC >163,000. Bilateral lung masses with central necrosis, malignancy not ruled out. Leukocytosis - better Thrush Sulfa allergy Tooth decay Tobaccoism COPD DM Hypothyroidism Plan Plan of Care Continue cefazolin may be thoracic duct injury , chylomicron pending d/w sister at bedside Attending Co-Sign The patient was seen and interviewed as well as examined at the bedside. The chart was reviewed. The case was discussed. Agree with the plan of care. YESICA LARA LACE FINISHER Dec 22, 2018 12:49 JESSICA YANEZ MD Dec 22, 2018 12:54
[2018-12-22 15:46] VITALS: BP 130/78
--- NOTE | 2018-12-22 18:03 | NUR ---
Dr Lieberman here this am. Freq checks on chest tube dressing and tubing. Dr Lieberman increased suction to neg 40 continuous. 50cc drainage noted on this shift. Pt continues to refuse extra tape and dressing change to chest tube site.
--- NOTE | 2018-12-22 18:14 | PN ---
DATE: 12/22/2018 SUBJECTIVE: The patient is resting slightly propped up in bed, in no apparent distress, sleepy but arousable; on questioning her, denied any complaint. The nursing staff did not voice any concern and stated that she had an uneventful night. Her chest tube drained less than 80 mL overnight. Her chest x-ray showed that the cardiomediastinal silhouette is stable; bilateral airspace opacities, particularly in the bilateral lung bases, are essentially stable with equivocal improvement in the left lung base; small bilateral pleural effusion; right chest tube in place with no pneumothorax. OBJECTIVE: GENERAL: When I examined her, she was pale; no jaundice, cyanosis, or thyromegaly. No jugular venous distention. No limb edema. VITAL SIGNS: Her heart rate was 118, blood pressure was 166/95, temperature was 98.1, respiratory rate was 18, and oxygen saturation was 92% on room air. Her intake was 700, output was 350. HEENT: Normocephalic, atraumatic. NECK: Supple. HEART: Showed normal first and second heart sounds with no gallop, rub, or murmur. CHEST: Clear to auscultation. No crepitation or rhonchi. ABDOMEN: Distended, soft, nontender. No guarding or rigidity. No organomegaly. All hernial orifices are intact. Bowel sounds normal. NEUROLOGIC: She is awake, alert, responding appropriately. All cranial nerves are intact. She moves extremities without any difficulty. LABORATORY DATA: As of yesterday, her white cell count was 16,000, hemoglobin 10, hematocrit 31, MCV 96, and platelet count 268,000. Her blood sugar seems to be reasonably controlled. As of yesterday, her serum sodium 135, potassium 3.9, chloride 100, bicarbonate 30, anion gap of 5, BUN 9, and creatinine 0.8. ASSESSMENT: 1. Large right-sided partially loculated pleural effusion, status post chest tube placement. 2. Large rounded opacities within the fluid collection in the right lower lobe closer to the pleura. She has another density in the left upper lobe with some central necrosis. 3. Acute hypoxic respiratory failure, multifactorial. 4. Chronic obstructive pulmonary disease. 5. Weight loss. 6. Empyema. Culture and sensitivity showed growth of Staphylococcus intermedius, sensitive to penicillin. Her Zosyn was discontinued and she was switched to cefazolin. PLAN: Continue obviously with intravenous antibiotic. Continue to monitor her blood sugar and adjust insulin as needed. Continue with deep vein thrombosis prophylaxis. Continue nutritional support as she has severe protein-calorie malnutrition with serum albumin is only 1.6. Her chest tube drained less than 80 mL overnight and ultimately will be clamped and eventually hopefully be taken out. MARK MARQUES MD DR: CHARLIE/rafael JOB#: [id number] / [id number]
[2018-12-22 19:35] VITALS: BP 142/83
[2018-12-22] MEDS: rOPINIRole 0.25 MG TABLET. PO SCH (20:35)
[2018-12-22] MEDS: HYDROcodone/APAP 5/325MG 1 TAB TABLET PO PRN (20:36)
[2018-12-22 23:40] VITALS: BP 136/76
[2018-12-23 03:40] VITALS: BP 138/83
[2018-12-23] MEDS: ceFAZolin SODIUM IV Push 1 GM VIAL. IVP SCH ×3 (06:00→22:00)
[2018-12-23] MEDS: LEVOTHYROXINE 75 MCG TABLET PO SCH (06:00)
[2018-12-23 07:40] VITALS: BP 157/84
[2018-12-23] MEDS: INSULIN LISPRO 300 UNITS/3 ML INSULN.PEN. SQ SCH ×3 (08:00→17:00)
--- NOTE | 2018-12-23 08:00 | RAD ---
EXAM: AP View of the chest DATE: 12/23/2018 9:00 AM INDICATION: Empyema COMPARISON: 12/22/2018, 12/21/2018 FINDINGS/ IMPRESSION: The heart is not enlarged. Aorta is mildly tortuous. Right perihilar and bilateral lung base airspace opacities are again seen, mildly progressive left lung base. Right lung base opacities are stable. Small bilateral pleural effusion, stable on the right, mildly increased in the left. Right chest tube is stable in position. No definite pneumothorax. Electronically signed by: Beck Lane MD (12/23/2018 7:57 AM) [facility]
[2018-12-23] MEDS: IPRATRPIUM/ALBUTEROL 0.5/2.5MG 3 ML NEBU. NEB SCH ×4 (08:27→20:39)
--- NOTE | 2018-12-23 08:49 | PDOC ---
PULMONARY PROGRESS NOTES Subjective sob better, has occ cough, ct had 155 cc drainage, ct tubing was kinked, i unkinked it, started draining more WANTS TO GO HOME Vitals Vital Signs Date Time Temp Pulse Resp B/P (MAP) Pulse Ox O2 Delivery O2 Flow Rate FiO2 12/23/18 08:28 92 Room Air 12/23/18 07:40 97.9 108 18 157/84 (108) 97.9 12/22/18 20:36 2.0 ROS: No Nausea General: Alert HEENT: Other (nc at perrl) Lungs: Crackles, Other (r ct) Cardiovascular: S1, S2 Abdomen: Soft, Non-tender Neuro Exam: Alert Extremities: No Edema Skin: Warm Labs Laboratory Tests Test 12/21/18 12:04 12/21/18 16:56 12/21/18 21:00 12/22/18 07:00 Glucose (Fingerstick) 139 mg/dL (70-99) 157 mg/dL (70-99) 159 mg/dL (70-99) 131 mg/dL (70-99) Test 12/22/18 11:33 12/22/18 16:54 12/22/18 21:12 Glucose (Fingerstick) 135 mg/dL (70-99) 157 mg/dL (70-99) 156 mg/dL (70-99) Laboratory Tests Test 12/22/18 11:33 12/22/18 16:54 12/22/18 21:12 Glucose (Fingerstick) 135 mg/dL (70-99) 157 mg/dL (70-99) 156 mg/dL (70-99) Medications Active Scripts Medications Dose Route/Sig Max Daily Dose Days Date Category Levothyroxine Sodium 25 Mcg Tablet 1 Tab PO DAILY 12/13/18 Reported Lorazepam 0.5 Mg Tablet 1 Tab PO DAILY 12/13/18 Reported Oxybutynin Chloride Er (Oxybutynin Chloride) 15 Mg Tab.er.24 1 Tab PO DAILY 12/13/18 Reported Oxybutynin Chloride Er (Oxybutynin Chloride) 10 Mg Tab.er.24 1 Tab PO DAILY 12/13/18 Reported Metformin Hcl Er (Metformin Hcl) 500 Mg Tab.er.24h 1,000 Mg PO BIDWMEALS 12/13/18 Reported Comments cxr reviewed The cardiac mediastinal silhouette is stable. Bilateral airspace opacities particularly in the bilateral lung bases are essentially stable with equivocal improvement in the left lung base. Small bilateral pleural effusions. Right chest tube is in place. No pneumothorax. Impression . IMPRESSION: 1. Large right-sided partially loculated pleural effusion, S/P CHEST TUBE/EMPYEMA STREP INTERMEDIUS 2. Large rounded density with fluid collection in the right lower lobe close to the pleura and another density in the left upper lobe with some central necrosis. ?ALL RELATED TO INFECTION 3. A 100-pound weight loss in the last 1 year. 4. A 40 years of tobacco use, suspect underlying severe chronic obstructive pulmonary disease. 5. Acute hypoxic respiratory failure secondary to large right pleural effusion and underlying chronic obstructive pulmonary disease. 6 DOES NOT MEET CRITERIA FOR CHYLOTHORAX TRIGLYCERIDE 61 7. STREP INTERMEDIUS EMPYEMA ANAEROBIC-AEROBIC CULTURE Final Preliminary report Final report ANAEROBIC RES 1 Final Comment No anaerobes recovered in 48 hours. No anaerobic growth in 72 hours. AEROBIC CULT Preliminary Preliminary report AEROBIC RES 1 Preliminary Comment Streptococcus intermedius 4+ GRAM STAIN Final Final report GRAM STAIN RES 1 Final Comment No white blood cells seen. GRAM STAIN RES 2 Final No organisms seen Plan . cont ct, cont suction, ct had 155 cc drainage, ct tubing was kinked, i corrected it, started draining more BD HOME WHEN FLUID DRAINAGE DECREASES DOES NOT MEET CRITERIA FOR CHYLOTHORAX dr pederson, D/W DR BERRY AND DR YANEZ decided to HOLD OFF ON BIOPSY cont ANTIBX per id D/W rn, pt GREG DE LA FUENTE MD Dec 23, 2018 08:49
[2018-12-23] MEDS: metFORMIN XR 500 MG TAB.ER.24H PO SCH ×2 (09:05→17:04)
[2018-12-23] MEDS: ASCORBIC ACID 500 MG TABLET PO SCH (09:06)
[2018-12-23] MEDS: OXYBUTYNIN CHLORIDE 5 MG TABLET PO SCH ×3 (09:06→20:58)
[2018-12-23] MEDS: LACTOBACILLUS RHAMNOSUS GG 1 CAPSULE. PO SCH ×2 (09:06→20:58)
[2018-12-23] MEDS: SERTRALINE 50 MG TABLET. PO SCH (09:06)
--- NOTE | 2018-12-23 09:25 | PN ---
DATE: 12/23/2018 SUBJECTIVE: The patient is resting, slightly propped up in bed, in no apparent distress. Apparently, her chest tube was kinked and was corrected by the video game animator and drained about 150 mL of fluid. The patient wants to go home; however, I explained to her that chest tube had to be clamped and removed before she can go home. PHYSICAL EXAMINATION: GENERAL: When I examined her this morning, she looked pale, cachectic, but no jaundice, cyanosis or thyromegaly. No jugular venous distension. No limb edema. VITAL SIGNS: Her heart rate was 108, blood pressure 157/84, temperature was 97.9, respiratory rate was 18 and oxygen saturation was 93% on room air. Her intake over the last 24 hours was incompletely recorded. HEAD, EYES, EARS, NOSE AND THROAT: Normocephalic, atraumatic. NECK: Supple. HEART: Showed normal first and second heart sounds. No gallop or murmur. CHEST: Clear to auscultation. No crepitation or rhonchi. ABDOMEN: Distended, soft, nontender. No guarding or rigidity. No organomegaly. All hernial orifice intact. Bowel sounds normal. NEUROLOGIC: She was awake, alert, responding appropriately. All cranial nerves intact. She moves extremities without difficulty. LABORATORY DATA: Her lab work today is still pending at the time of this dictation. ASSESSMENT: 1. Large right-sided partially loculated pleural effusion, status post chest tube placement, continues to drain. 2. Large rounded opacities within the fluid collection in the right lower lobe, closer to the pleura. She has another density in the left upper lobe with some central necrosis. 3. Acute hypoxic respiratory failure, multifactorial. 4. Chronic obstructive pulmonary disease. 5. Weight loss. 6. Empyema with culture and sensitivity showed growth of Staphylococcus intermedius, sensitive to penicillin. Her Zosyn was discontinued. She is now switched to cefazolin. PLAN: Continue with IV antibiotic. Continue with chest tube. Continue to monitor blood sugar and adjust insulin as needed. Continue with DVT prophylaxis. Continue nutritional support. MARK MARQUES MD DR: CHARLIE/rafael JOB#: [id number] / [id number]
[2018-12-23 10:14] LABS: BASO % 0 % (0-3); EOS % 0 % (0-3); HEMATOCRIT 29.3 % (36.0-47.0); LYMPH # 0.8 x10^3/uL (1.0-4.8); LYMPH % 8 % (24-48); MEAN CORPUSCULAR HEMOGLOBIN 32 pg (25-35); MEAN CORPUSCULAR HGB CONC 34 g/dL (31-37); MEAN CORPUSCULAR VOLUME 95 fL (79-100); MONO # 0.7 x10^3/uL (0.0-1.1); MONO % 7 % (0-9); NEUT # 9.3 x10^3/uL (1.8-7.7); NEUT % 85 % (31-73); PLATELET COUNT 307 x10^3/uL (140-400); RED BLOOD COUNT 3.08 x10^6/uL (3.50-5.40); RED CELL DISTRIBUTION WIDTH 14.5 % (11.5-14.5)
[2018-12-23 10:31] LABS: CALCIUM 8.5 mg/dL (8.5-10.1); CREATININE 0.7 mg/dL (0.6-1.0); GFR 83.2
--- NOTE | 2018-12-23 10:32 | PDOC ---
Infectious Disease Note Subjective Subjective Feeling alright Appetite improved Cough w/ phlegm production Denies SOA/chest pain/F/C/S/N/V/D ROS ROS per HPI Vital Sign Vital Signs Vital Signs Date Time Temp Pulse Resp B/P (MAP) Pulse Ox O2 Delivery O2 Flow Rate FiO2 12/23/18 08:28 92 Room Air 12/23/18 07:40 97.9 108 18 157/84 (108) 97.9 12/22/18 20:36 2.0 Physical Exam PHYSICAL EXAM GENERAL: Propped up in bed, alert, NAD HEENT: NKECHI, Oropharynx dry. Left lower molar decay NECK: Supple. LUNGS: Improved aeration, Right chest tube w/ purulent drainage. HEART: S1 and S2. ABDOMEN: Soft and nontender with bowel sounds present. EXTREMITIES: No gross edema or cyanosis. SKIN: Warm to touch. No signs of rash. NEUROLOGIC: Alert, answering questions appropriately PIV Labs Lab Laboratory Tests Test 12/22/18 11:33 12/22/18 16:54 12/22/18 21:12 12/23/18 08:50 Glucose (Fingerstick) 135 mg/dL (70-99) 157 mg/dL (70-99) 156 mg/dL (70-99) 157 mg/dL (70-99) Test 12/23/18 09:55 White Blood Count 11.0 x10^3/uL (4.0-11.0) Red Blood Count 3.08 x10^6/uL (3.50-5.40) Hemoglobin 10.0 g/dL (12.0-15.5) Hematocrit 29.3 % (36.0-47.0) Mean Corpuscular Volume 95 fL (79-100) Mean Corpuscular Hemoglobin 32 pg (25-35) Mean Corpuscular Hemoglobin Concent 34 g/dL (31-37) Red Cell Distribution Width 14.5 % (11.5-14.5) Platelet Count 307 x10^3/uL (140-400) Neutrophils (%) (Auto) 85 % (31-73) Lymphocytes (%) (Auto) 8 % (24-48) Monocytes (%) (Auto) 7 % (0-9) Eosinophils (%) (Auto) 0 % (0-3) Basophils (%) (Auto) 0 % (0-3) Neutrophils # (Auto) 9.3 x10^3/uL (1.8-7.7) Lymphocytes # (Auto) 0.8 x10^3/uL (1.0-4.8) Monocytes # (Auto) 0.7 x10^3/uL (0.0-1.1) Eosinophils # (Auto) 0.0 x10^3/uL (0.0-0.7) Basophils # (Auto) 0.0 x10^3/uL (0.0-0.2) Micro CXR, 12/15 1. Small-caliber right chest tube. Marked decrease of right pleural effusion, now small to moderate. 2. Right midlung mass. Stable left upper lung nodule. 3. Right basilar airspace opacities may be atelectasis. Objective Assessment Empyema s/p right chest tube placement 12/14. Streptococcus intermedius -ph 6.20. WBC >163,000. neg malignant cells Bilateral lung masses with central necrosis, malignancy not ruled out. Leukocytosis - better Thrush Sulfa allergy Tooth decay Tobaccoism COPD DM Hypothyroidism Plan Plan of Care Continue cefazolin may be thoracic duct injury , chylomicron pending Attending Co-Sign The patient was seen and interviewed as well as examined at the bedside. The chart was reviewed. The case was discussed. Agree with the plan of care. YESICA LARA APRN Dec 23, 2018 10:32 JESSICA YANEZ MD Dec 23, 2018 12:22
[2018-12-23 11:13] VITALS: BP 147/84
[2018-12-23] MEDS: DRONABINOL 2.5 MG CAPSULE. PO SCH ×2 (11:30→16:30)
[2018-12-23] MEDS: HYDROcodone/APAP 5/325MG 1 TAB TABLET PO PRN ×2 (15:22→20:57)
[2018-12-23] MEDS: ALBUTEROL SULFATE 2.5 MG/3 ML NEBU. NEB PRN (15:31)
[2018-12-23 15:45] VITALS: BP 122/78
[2018-12-23 19:45] VITALS: BP 131/81
[2018-12-23] MEDS: rOPINIRole 0.25 MG TABLET. PO SCH (20:58)
--- NOTE | 2018-12-23 22:10 | NUR ---
Scanned patient's ancef, but part of the barcode was torn. so manually administered.
[2018-12-23 23:45] VITALS: BP 137/74
[2018-12-24 03:45] VITALS: BP 136/78
[2018-12-24] MEDS: ceFAZolin SODIUM IV Push 1 GM VIAL. IVP SCH (06:30)
[2018-12-24] MEDS: LEVOTHYROXINE 75 MCG TABLET PO SCH (06:30)
[2018-12-24 07:00] VITALS: BP 126/76
[2018-12-24] MEDS: INSULIN LISPRO 300 UNITS/3 ML INSULN.PEN. SQ SCH ×2 (08:00→11:58)
[2018-12-24] MEDS: OXYBUTYNIN CHLORIDE 5 MG TABLET PO SCH ×2 (08:37→12:44)
[2018-12-24] MEDS: metFORMIN XR 500 MG TAB.ER.24H PO SCH (08:37)
[2018-12-24] MEDS: ASCORBIC ACID 500 MG TABLET PO SCH (08:37)
[2018-12-24] MEDS: LACTOBACILLUS RHAMNOSUS GG 1 CAPSULE. PO SCH (08:37)
[2018-12-24] MEDS: SERTRALINE 50 MG TABLET. PO SCH (08:37)
--- NOTE | 2018-12-24 09:18 | PDOC ---
Infectious Disease Note Subjective: Subjective Feeling alright Cough w/ phlegm production but improving Denies SOA/chest pain/F/C/S/N/V/D ROS: ROS Negative otherwise. Vital Signs: Vital Signs Vital Signs Date Time Temp Pulse Resp B/P (MAP) Pulse Ox O2 Delivery O2 Flow Rate FiO2 12/24/18 07:00 98.5 75 17 126/76 (93) 93 Room Air 98.5 12/23/18 08:00 2.0 Physical Exam: PHYSICAL EXAM GENERAL: Propped up in bed, alert, NAD HEENT: NKECHI, Oropharynx dry. Left lower molar decay NECK: Supple. LUNGS: Improved aeration,dec bs at rt base, Right chest tube w/ purulent drainage. HEART: S1 and S2. ABDOMEN: Soft and nontender with bowel sounds present. EXTREMITIES: No gross edema or cyanosis. SKIN: Warm to touch. No signs of rash. NEUROLOGIC: AXoX3 in nad,nonfocal grossly PIV Medications: Inpatient Meds: Current Medications Medications (Trade) Dose Ordered Sig/Antonina Start Time Stop Time Status Last Admin Dose Admin Acetaminophen/ Hydrocodone Bitart (Lortab 5/325) 1 tab PRN Q4HRS PRN 12/13/18 21:45 12/23/18 20:58 1 TAB Albuterol Sulfate (Ventolin Neb Soln) 2.5 mg PRN Q2HR PRN 12/13/18 23:15 12/23/18 15:31 2.5 MG Albuterol/ Ipratropium (Duoneb) 3 ml STK-MED ONCE 12/21/18 07:54 12/21/18 07:55 DC Ascorbic Acid (Vitamin C) 500 mg DAILY 12/16/18 12:00 12/24/18 08:43 500 MG Cefazolin Sodium (Ancef) 1 gm Q8HRS 12/21/18 14:00 12/24/18 06:30 1 GM Cefazolin Sodium 1 gm/Dextrose 50 ml @ 100 mls/hr Q8HRS 12/21/18 14:00 UNV Dextrose 250 ml PRN Q15MIN PRN 12/13/18 23:15 Dextrose (Dextrose 50%-Water Syringe) 12.5 gm PRN Q15MIN PRN 12/13/18 23:15 UNV Dronabinol (Marinol) 2.5 mg BIDACLD 12/18/18 11:30 12/18/18 13:32 2.5 MG Fentanyl Citrate (Fentanyl 2ml Vial) 100 mcg STK-MED ONCE 12/20/18 08:39 12/20/18 08:39 DC Info (CONTRAST GIVEN -- Rx MONITORING) 1 each PRN DAILY PRN 12/18/18 12:15 12/20/18 12:14 DC Insulin Human Lispro (HumaLOG) 0-7 UNITS TIDWMEALS 12/14/18 08:00 12/18/18 13:32 4 UNITS Iohexol (Omnipaque 300 Mg/ml) 75 ml 1X ONCE 12/18/18 12:00 12/18/18 12:02 DC 12/18/18 13:03 75 ML Lactobacillus Rhamnosus (Culturelle) 1 cap BID 12/15/18 21:00 12/24/18 08:43 1 CAP Levothyroxine Sodium (Synthroid) 75 mcg DAILY06 12/17/18 06:00 12/24/18 06:30 75 MCG Linezolid/Dextrose 300 ml @ 300 mls/hr Q12HR 12/14/18 12:00 12/18/18 11:24 DC 12/18/18 10:24 300 MLS/HR Lorazepam (Ativan) 0.5 mg PRN QHS PRN 12/22/18 11:15 Metformin HCl (Glucophage Xr) 1,000 mg BIDWMEALS 12/18/18 17:00 12/24/18 08:43 1,000 MG Midazolam HCl (Versed) 2 mg STK-MED ONCE 12/20/18 08:39 12/20/18 08:39 DC Non-Formulary Medication (Oxybutynin Chloride (Oxybutynin Chloride Er)) 1 tab DAILY 12/14/18 09:00 UNV Nystatin (Nystatin Oral Susp) 5 ml [id number] 12/14/18 17:00 12/18/18 13:06 DC 12/18/18 10:24 5 ML Oxybutynin Chloride (Ditropan) 5 mg [id number] 12/14/18 09:00 12/24/18 08:43 5 MG Piperacillin Sod/ Tazobactam Sod 3.375 gm/Sodium Chloride 50 ml @ 100 mls/hr Q8H 12/14/18 10:30 12/14/18 10:40 DC Piperacillin Sod/ Tazobactam Sod 4.5 gm/Sodium Chloride 100 ml @ 200 mls/hr Q6HRS 12/14/18 11:00 12/21/18 13:18 DC 12/21/18 12:22 200 MLS/HR Ropinirole HCl (Requip) 0.25 mg HS 12/16/18 21:00 12/23/18 20:58 0.25 MG Sertraline HCl (Zoloft) 200 mg DAILY 12/16/18 12:00 12/24/18 08:43 200 MG Throat Lozenges (Cepacol Sore Throat Lozenge) 1 ronal PRN Q2HRS PRN 12/15/18 21:45 12/16/18 14:01 1 RONAL Labs: Lab Laboratory Tests Test 12/23/18 09:55 12/23/18 11:29 12/23/18 16:58 12/23/18 20:58 White Blood Count 11.0 x10^3/uL (4.0-11.0) Red Blood Count 3.08 x10^6/uL (3.50-5.40) Hemoglobin 10.0 g/dL (12.0-15.5) Hematocrit 29.3 % (36.0-47.0) Mean Corpuscular Volume 95 fL (79-100) Mean Corpuscular Hemoglobin 32 pg (25-35) Mean Corpuscular Hemoglobin Concent 34 g/dL (31-37) Red Cell Distribution Width 14.5 % (11.5-14.5) Platelet Count 307 x10^3/uL (140-400) Neutrophils (%) (Auto) 85 % (31-73) Lymphocytes (%) (Auto) 8 % (24-48) Monocytes (%) (Auto) 7 % (0-9) Eosinophils (%) (Auto) 0 % (0-3) Basophils (%) (Auto) 0 % (0-3) Neutrophils # (Auto) 9.3 x10^3/uL (1.8-7.7) Lymphocytes # (Auto) 0.8 x10^3/uL (1.0-4.8) Monocytes # (Auto) 0.7 x10^3/uL (0.0-1.1) Eosinophils # (Auto) 0.0 x10^3/uL (0.0-0.7) Basophils # (Auto) 0.0 x10^3/uL (0.0-0.2) Sodium Level 133 mmol/L (136-145) Potassium Level 4.0 mmol/L (3.5-5.1) Chloride Level 98 mmol/L (98-107) Carbon Dioxide Level 30 mmol/L (21-32) Anion Gap 5 (6-14) Blood Urea Nitrogen 7 mg/dL (7-20) Creatinine 0.7 mg/dL (0.6-1.0) Estimated GFR (Cockcroft-Gault) 83.2 Glucose Level 190 mg/dL (70-99) Calcium Level 8.5 mg/dL (8.5-10.1) Glucose (Fingerstick) 136 mg/dL (70-99) 140 mg/dL (70-99) 122 mg/dL (70-99) Test 12/24/18 07:43 Glucose (Fingerstick) 113 mg/dL (70-99) Objective: Assessment: GENERAL: Propped up in bed, alert, NAD HEENT: NKECHI, Oropharynx dry. Left lower molar decay NECK: Supple. LUNGS: Improved aeration, Right chest tube w/ purulent drainage. HEART: S1 and S2. ABDOMEN: Soft and nontender with bowel sounds present. EXTREMITIES: No gross edema or cyanosis. SKIN: Warm to touch. No signs of rash. NEUROLOGIC: Alert, answering questions appropriately PIV Plan: Plan of Care Continue cefazolin may be thoracic duct injury , chylomicron pending cont supportive care d/w rn d/w family at bedside MARYAN YANEZ MD Dec 24, 2018 09:18
[2018-12-24] MEDS: IPRATRPIUM/ALBUTEROL 0.5/2.5MG 3 ML NEBU. NEB SCH ×2 (09:25→12:22)
--- NOTE | 2018-12-24 10:55 | RAD ---
Indication:Empyema. TECHNIQUE:Portable AP chest X-ray COMPARISON: 12/23/2018 FINDINGS: Heart is normal in size. Lungs are hyperinflated with interstitial opacities bilaterally. Blunting of the right costophrenic angle is seen. Patchy opacity in the right lung base. No pneumothorax. Stable position of right-sided pleural drain. Visualized bony thorax within normal limits. IMPRESSION: Stable small right pleural effusion. Underlying patchy opacity in the right lung base may be secondary to atelectasis or pneumonia. COPD changes. Overall no significant change compared to previous exam. Electronically signed by: Gabe Talley DO (12/24/2018 10:53 AM) [facility]
[2018-12-24 11:00] VITALS: BP 126/76
--- NOTE | 2018-12-24 11:00 | NUR ---
Chest tube removed by Dr. Armijo at bedside. No complications at this time. Education provided to family and patient regarding tube site care.
--- NOTE | 2018-12-24 11:16 | NUR ---
SS following for discharge planning. SS reviewed pt chart. Pt is from home and is currently on room air. Pt is currently declining PT. Disposition for discharge will be home if pt continues to decline PT. SS will continue to follow for discharge planning.
[2018-12-24] MEDS: DRONABINOL 2.5 MG CAPSULE. PO SCH (11:30)
--- NOTE | 2018-12-24 11:42 | PDOC ---
PULMONARY PROGRESS NOTES Subjective sob better, has occ cough, ct had 150 cc drainage x 24 hr, WANTS TO GO HOME Vitals Vital Signs Date Time Temp Pulse Resp B/P (MAP) Pulse Ox O2 Delivery O2 Flow Rate FiO2 12/24/18 11:00 98.5 75 17 126/76 (93) 93 Room Air 98.5 12/23/18 08:00 2.0 ROS: No Nausea General: Alert, No acute distress HEENT: Other (nc at perrl) Lungs: Other (decrease bs) Cardiovascular: S1, S2 Abdomen: Soft, Non-tender Neuro Exam: Alert Extremities: No Edema Skin: Warm Labs Laboratory Tests Test 12/22/18 16:54 12/22/18 21:12 12/23/18 08:50 12/23/18 09:55 Glucose (Fingerstick) 157 mg/dL (70-99) 156 mg/dL (70-99) 157 mg/dL (70-99) White Blood Count 11.0 x10^3/uL (4.0-11.0) Red Blood Count 3.08 x10^6/uL (3.50-5.40) Hemoglobin 10.0 g/dL (12.0-15.5) Hematocrit 29.3 % (36.0-47.0) Mean Corpuscular Volume 95 fL (79-100) Mean Corpuscular Hemoglobin 32 pg (25-35) Mean Corpuscular Hemoglobin Concent 34 g/dL (31-37) Red Cell Distribution Width 14.5 % (11.5-14.5) Platelet Count 307 x10^3/uL (140-400) Neutrophils (%) (Auto) 85 % (31-73) Lymphocytes (%) (Auto) 8 % (24-48) Monocytes (%) (Auto) 7 % (0-9) Eosinophils (%) (Auto) 0 % (0-3) Basophils (%) (Auto) 0 % (0-3) Neutrophils # (Auto) 9.3 x10^3/uL (1.8-7.7) Lymphocytes # (Auto) 0.8 x10^3/uL (1.0-4.8) Monocytes # (Auto) 0.7 x10^3/uL (0.0-1.1) Eosinophils # (Auto) 0.0 x10^3/uL (0.0-0.7) Basophils # (Auto) 0.0 x10^3/uL (0.0-0.2) Sodium Level 133 mmol/L (136-145) Potassium Level 4.0 mmol/L (3.5-5.1) Chloride Level 98 mmol/L (98-107) Carbon Dioxide Level 30 mmol/L (21-32) Anion Gap 5 (6-14) Blood Urea Nitrogen 7 mg/dL (7-20) Creatinine 0.7 mg/dL (0.6-1.0) Estimated GFR (Cockcroft-Gault) 83.2 Glucose Level 190 mg/dL (70-99) Calcium Level 8.5 mg/dL (8.5-10.1) Test 12/23/18 11:29 12/23/18 16:58 12/23/18 20:58 12/24/18 07:43 Glucose (Fingerstick) 136 mg/dL (70-99) 140 mg/dL (70-99) 122 mg/dL (70-99) 113 mg/dL (70-99) Laboratory Tests Test 12/23/18 16:58 12/23/18 20:58 12/24/18 07:43 Glucose (Fingerstick) 140 mg/dL (70-99) 122 mg/dL (70-99) 113 mg/dL (70-99) Medications Active Scripts Medications Dose Route/Sig Max Daily Dose Days Date Category Levothyroxine Sodium 25 Mcg Tablet 1 Tab PO DAILY 12/13/18 Reported Lorazepam 0.5 Mg Tablet 1 Tab PO DAILY 12/13/18 Reported Oxybutynin Chloride Er (Oxybutynin Chloride) 15 Mg Tab.er.24 1 Tab PO DAILY 12/13/18 Reported Oxybutynin Chloride Er (Oxybutynin Chloride) 10 Mg Tab.er.24 1 Tab PO DAILY 12/13/18 Reported Metformin Hcl Er (Metformin Hcl) 500 Mg Tab.er.24h 1,000 Mg PO BIDWMEALS 12/13/18 Reported Comments Stable small right pleural effusion. Underlying patchy opacity in the right lung base may be secondary to atelectasis or pneumonia. COPD changes. Overall no significant change compared to previous exam. Impression . IMPRESSION: 1. Large right-sided partially loculated pleural effusion, S/P CHEST TUBE/EMPYEMA STREP INTERMEDIUS 2. Large rounded density with fluid collection in the right lower lobe close to the pleura and another density in the left upper lobe with some central necrosis. ?ALL RELATED TO INFECTION 3. A 100-pound weight loss in the last 1 year. 4. A 40 years of tobacco use, suspect underlying severe chronic obstructive pulmonary disease. 5. Acute hypoxic respiratory failure secondary to large right pleural effusion and underlying chronic obstructive pulmonary disease. 6 DOES NOT MEET CRITERIA FOR CHYLOTHORAX TRIGLYCERIDE 61 7. STREP INTERMEDIUS EMPYEMA ANAEROBIC-AEROBIC CULTURE Final Preliminary report Final report ANAEROBIC RES 1 Final Comment No anaerobes recovered in 48 hours. No anaerobic growth in 72 hours. AEROBIC CULT Preliminary Preliminary report AEROBIC RES 1 Preliminary Comment Streptococcus intermedius 4+ GRAM STAIN Final Final report GRAM STAIN RES 1 Final Comment No white blood cells seen. GRAM STAIN RES 2 Final No organisms seen Plan . ct had 150 cc drainage, x [address] today cxr stable d/w ID, will change to PO Abx BD f/u with DR CUADRA / REPEAT CT CHEST IN 4-6 WEEKS GILMA LÓPEZ MD Dec 24, 2018 11:42
[2018-12-24] MEDS ORDERED: DRONABINOL 2.5 MG CAPSULE. PO PRN (11:45)
[2018-12-24] MEDS ORDERED: PENICILLIN V K 250 MG TABLET. PO SCH (12:00)
[2018-12-24] MEDS ORDERED: HYDR-2759 PO (12:14)
[2018-12-24] MEDS ORDERED: PENI500T PO (12:14)
[2018-12-24] MEDS ORDERED: LORA0.5T PO (12:16)
--- NOTE | 2018-12-24 12:43 | PN ---
DATE: 12/24/2018 SUBJECTIVE: The patient is resting, slightly propped up in bed, in no apparent respiratory distress. She is awake, alert. Denied any complaint, wanted to go home. She continued to have the chest tube to Pleur-evac. Her chest tube drainage over the last 24 hours about 200 mL. PHYSICAL EXAMINATION: GENERAL: When I examined her, she was pale, cachectic, but no jaundice, cyanosis or thyromegaly. No jugular venous distention. No limb edema. VITAL SIGNS: Her heart rate was 75, blood pressure was 126/76, temperature was 98.5, respiratory rate was 17 and oxygen saturation was 95% on room air. HEAD, EYES, EARS, NOSE AND THROAT: Showed normocephalic, atraumatic. NECK: Supple. HEART: Showed normal first and second heart sounds with no gallop, rub or murmur. CHEST: Clear to auscultation. No crepitation or rhonchi. ABDOMEN: Distended, soft, nontender. No guarding or rigidity. No organomegaly. All hernial orifices intact. Bowel sounds normal. NEUROLOGIC: She is awake, alert, responding appropriately. All cranial nerves intact. She moves extremities without difficulty. Her intake was 1500, output was 155. LABORATORY DATA: As of yesterday, her serum sodium 133, potassium 4, chloride 98, bicarbonate 30, anion gap of 5, BUN 7, creatinine 0.7, estimated GFR was 83 mL per minute. Her glucose 190, calcium was 8.5. Her white cell count is 11,000, hemoglobin 10, hematocrit 29, MCV 95 and platelet count 307,000. Her pleural fluid culture and sensitivity has grown Streptococcus intermedius for which she is now on cefazolin. ASSESSMENT: 1. Large right side partially loculated pleural effusion, status post chest tube placement continues to drain. 2. Large, rounded opacities within fluid collection in the right lower lobe closer to the pleura. She had another density in the left upper lobe with some central necrosis. 3. Acute hypoxic respiratory failure, multifactorial. 4. Chronic obstructive pulmonary disease. 5. Weight loss. 6. Emphysema with culture and sensitivity showing growth of Staphylococcus intermedius, sensitive to penicillin and her Zosyn was discontinued. She is now on cefazolin. PLAN: Continue IV antibiotic. Continue with chest tube. Continue to monitor blood sugar and adjust insulin as needed. Continue DVT prophylaxis. Continue nutritional support. Continue with physical and occupational therapy. MARK MARQUES MD DR: CHARLIE/rafael JOB#: [id number] / [id number]
[2018-12-24] MEDS: HYDROcodone/APAP 5/325MG 1 TAB TABLET PO PRN (12:44)
--- NOTE | 2018-12-24 13:16 | NUR ---
Discharge: Pt DC to home accompanied by family via private car. Left with DC instructions, paperwork, home medications returned from pharmacy, rx's for lortab, ativan, and PCN V, education for chest tube site care, and follow up instructions. No concerns. IV DC'ed, no complications.
--- NOTE | 2018-12-24 13:27 | DS ---
DATE OF DISCHARGE: 12/24/2018 HOSPITAL COURSE: The patient is a 68-year-old female patient who was admitted originally. She has large sided pleural effusion and she was recently diagnosed with possible lung cancer. She was scheduled for a biopsy; however, over the last 4 days prior to the admission, she has had decreased appetite because anything she eats or drinks taste nasty her water than usual taste, has been feeling more and more weak over the last 4 days, productive cough. She was found to have large right-sided pleural effusion for which she underwent chest tube placement and in fact, the patient was found to have empyema that eventually grew Streptococcus intermedius and the right-sided drain was drained and drainage seemed getting less and less and this chest tube was removed this morning. Her antibiotic was switched to penicillin V potassium 500 mg 4 times a day for the next 2 weeks. The patient is feeling generally better. A decision was made to discharge her home to continue with oral antibiotic and to follow with Infectious Disease in [address] Waller in 4-6 weeks' time. PHYSICAL EXAMINATION: GENERAL: When I examined her today, she looked well and was clearly in no apparent respiratory distress, not pale, but no jaundice, cyanosis or thyromegaly. No jugular venous distention. No limb edema. VITAL SIGNS: Her heart rate was 75, blood pressure was 126/76, temperature was 98.5, respiratory rate was 17 and oxygen saturation was 93%. HEAD, EYES, EARS, NOSE AND THROAT: Normocephalic, atraumatic. NECK: Supple. HEART: Showed normal first and second heart sounds. No gallop or murmur. CHEST: Clear to auscultation. No crepitation or rhonchi. ABDOMEN: Distended, soft, and nontender. No guarding or rigidity. No organomegaly. All hernial orifices intact. Bowel sounds normal. NEUROLOGIC: She was awake, alert, responding appropriately. All cranial nerves intact. She moves extremities without difficulty. LABORATORY DATA: As of yesterday, her white cell count was 11,000, hemoglobin 10, hematocrit 29, MCV 95, and platelet count of 307,000. Her chemistry showed a serum sodium 133, potassium 4, chloride 98, bicarbonate 30, anion gap of 5, BUN 7, creatinine 0.7, estimated GFR was 83 mL per minute. Her glucose 190, calcium was 8.5. Her prothrombin time was 15.2, INR 1.2. DISCHARGE MEDICATIONS: She was discharged home to continue hydrocodone/APAP 5/325 one tablet every 6 hours, lorazepam 0.5 mg once a day, penicillin V potassium 500 mg 4 times a day for 2 weeks. Should continue on ascorbic acid 500 mg once a day, Symbicort 2 puffs twice a day, ibuprofen 600 mg every 8 hours, levothyroxine sodium 75 mcg once a day, metformin 1000 mg twice a day, oxybutynin 15 mg once a day, Requip 0.5 mg at bedtime, sertraline or Zoloft 200 mg daily, spironolactone 25 mg twice a day and tramadol 50 mg 3 times a day. FINAL DISCHARGE DIAGNOSES: 1. Large right-sided partial loculated pleural effusion, status post chest tube placement and removal. The culture showed growth of Streptococcus intermedius. Large rounded density and fluid collection in the right lower lobe close to the pleura and other density in the left upper lobe with some central necrosis, seems all related to infection. 2. A 100-pound weight loss in the last 1 year. 3. A 40-year tobacco use. Suspect underlying severe chronic obstructive pulmonary disease. 4. Acute hypoxic respiratory failure, multifactorial. The finding of the empyema does not meet criteria for chylothorax. The patient should be discharged home to follow with Infectious Disease specialist in [address] Waller in 4 weeks' time. MARK MARQUES MD DR: CHARLIE/rafael JOB#: [id number] / [id number]
== END 2018-12-24 13:15 | disposition home or self-care (01) | DRG 177 ==
LOC: 6 SOUTH 18:25
PROVIDERS: ADMIT Internal Medicine; ATTEND Internal Medicine
PROC: 0W9930Z Drainage of Right Pleural Cavity with Drainage Device, Percutaneous Approach (ICD-10-PCS; principal; 2018-12-14)
DX: J86.9 Pyothorax without fistula (principal); J96.01 Acute respiratory failure with hypoxia; E43 Unspecified severe protein-calorie malnutrition; J90 Pleural effusion, not elsewhere classified; J98.11 Atelectasis; B37.0 Candidal stomatitis; B37.89 Other sites of candidiasis; J44.9 Chronic obstructive pulmonary disease, unspecified; E11.9 Type 2 diabetes mellitus without complications; F17.210 Nicotine dependence, cigarettes, uncomplicated; E03.9 Hypothyroidism, unspecified; K02.9 Dental caries, unspecified; B95.4 Other streptococcus as the cause of diseases classified elsewhere; Z79.899 Other long term (current) drug therapy; Z88.2 Allergy status to sulfonamides; Z68.21 Body mass index [BMI] 21.0-21.9, adult
CPT/HCPCS: 32557; 36415; 71045; 71260; 80048; 80053; 82465; 82945; 82962; 83615; 83986; 84157; 84478; 85007; 85025; 85027; 85610; 87071; 87075; 87102; 87116; 87186; 88112; 88305; 89050; 94640; 94760; A4215; C1729; C1894; J0690; J1815; J2020; J2543; J7613; J7620; Q0167; Q9967; 97116; G0378

== ENCOUNTER 2019-01-30 14:05 | Inpatient (IN) | payer MEDICARE ==
[~2019-01-30] VITALS: Ht 170.2 cm; Wt 58.5 kg
[~2019-01-30 14:05] MED LIST: ASCO500T3 PO; BUDE10.22 IH; HYDR-2759 PO; HYDR-3164 PO; IBUP-1007 PO; LEVO25TA4 PO; LEVO75TA5 PO; LORA0.5T PO; METF500T11 PO; OXYB10TA2 PO; OXYB15TA17 PO; PENI500T PO; ROPI0.25 PO; SERT100T PO; SPIR25TA5 PO; TRAM50TA PO
--- NOTE | 2019-01-30 15:12 | PHYS DOC ---
Past Medical History Past Medical History: COPD, Diabetes-Type II Smoking: Cigarettes Adult General Chief Complaint Chief Complaint: OTHER COMPLAINTS [facility] HPI Patient is a 68-year-old female who presents to the emergency department for evaluation, from her pulmonology office. She has a history of COPD, at about a month and a half ago, had a fluid collection drained from her right lung, which was found to be an empyema. She had an outpatient CT scan done yesterday, due to mildly increasing shortness of breath, this was done at [facility] and I have reviewed the report and images. She was found to have a new hydropneumo thorax at her right base, which appears loculated. Her lung is otherwise expanded. She saw her sales and service representative today, who referred to the emergency department for hospitalization, so she can have a CT-guided chest tube placed. Other than some mild shortness of breath with exertion the patient has no other complaints at this time. The patient's sales and service representative called emergency department and I spoke with him prior to the patient's arrival. He did not feel she needed any treatment other than hospitalization to facilitate CT-guided chest tube, which he felt would be done tomorrow. Review of Systems Review of Systems Constitutional: Denies fever or chills [] Eyes: Denies change in visual acuity, redness, or eye pain [] HENT: Denies nasal congestion or sore throat [] Respiratory: Reports dyspnea on exertion, denies cough.[] Cardiovascular: No additional information not addressed in HPI [] GI: Denies abdominal pain, nausea, vomiting, bloody stools or diarrhea [] : Denies dysuria or hematuria [] Musculoskeletal: Denies back pain or joint pain [] Integument: Denies rash or skin lesions [] Neurologic: Denies headache, focal weakness or sensory changes [] Endocrine: Denies polyuria or polydipsia [] All other systems were reviewed and found to be within normal limits, except as documented in this note. Allergies Allergies Allergies Coded Allergies Type Severity Reaction Last Updated Verified Sulfa (Sulfonamide Antibiotics) Allergy Intermediate 12/13/18 Yes Physical Exam Physical Exam PHYSICAL EXAM: CONSTITUTIONAL: Thin, frail-appearing HEAD: normocephalic, atraumatic EENT: PERRL, EOMI. Conjunctivae normal color, sclerae non-icteric; moist mucous membranes. NECK: Supple, non-tender; no meningismus. LUNGS: Breath sounds are diminished at the bases bilaterally, with more globally diminished breath sounds in the middle and upper lobes bilaterally, without any rales, wheezes, or rhonchi, there is no increased work of breathing present. HEART: Regular rate and rhythm, no murmur CHEST: No deformity; non-tender ABDOMEN: The abdomen is soft, and non-tender, no masses or bruits. EXTREM: Normal ROM; no deformity, no calf tenderness. Normal pulses palpable in all extremities. There is no pedal edema. SKIN: No rash; no diaphoresis NEURO: Alert; normal speech and cognition; CN's grossly intact; strength grossly intact without focal deficit. BACK: No CVA TTP. EKG EKG [] Radiology/Procedures Radiology/Procedures PROCEDURE: CHEST PA & LATERAL CHEST PA LATERAL History: Hydropneumothorax. Comparison: 01/29/2019 CT chest without contrast. Findings: Frontal and lateral views of the chest were obtained. The cardiomediastinal silhouette is normal. Pulmonary vasculature is normal. Right basilar atelectatic consolidation is present. Right basilar hydropneumothorax with pleural thickening is evident. Interstitial infiltrates involving the right upper midlung region is present. Calcified granuloma involving the left lower lung field is evident. Osteopenia is noted. Old rib fractures are present on the right. IMPRESSION: Patient's known right basilar loculated pneumothorax is unchanged. Mild right basilar atelectasis again seen. No change in right upper to midthoracic level infiltrates.[] Course & Med Decision Making Course & Med Decision Making Pertinent Labs and Imaging studies reviewed. (See chart for details) [] 3:10 PM: Chest x-ray today, as well as patient's CT from yesterday were reviewed, labs are currently pending. I spoke with Dr. Tirado, who has admitted the patient in the past and has graciously agreed to admit the patient again. Dragon Disclaimer Dragon Disclaimer This electronic medical record was generated, in whole or in part, using a voice recognition dictation system. Departure Departure Impression: Primary Impression: Hydropneumothorax Additional Impression: COPD (chronic obstructive pulmonary disease) Disposition: ADMITTED INPATIENT Admitting Physician: Madi. Morgan Condition: STABLE Referrals: ALINA KENNEDY MD (PCP) Problem Qualifiers ILDA BA MD Jan 30, 2019 15:12
[2019-01-30 15:50] LABS: BASO % 1 % (0-3); EOS # 0.1 x10^3/uL (0.0-0.7); EOS % 1 % (0-3); HEMATOCRIT 28.8 % (36.0-47.0); HEMOGLOBIN 9.7 g/dL (12.0-15.5); LYMPH # 1.3 x10^3/uL (1.0-4.8); LYMPH % 19 % (24-48); MEAN CORPUSCULAR HEMOGLOBIN 33 pg (25-35); MEAN CORPUSCULAR HGB CONC 34 g/dL (31-37); MEAN CORPUSCULAR VOLUME 97 fL (79-100); MONO # 0.4 x10^3/uL (0.0-1.1); MONO % 7 % (0-9); NEUT # 4.8 x10^3/uL (1.8-7.7); NEUT % 73 % (31-73); PLATELET COUNT 319 x10^3/uL (140-400); RED BLOOD COUNT 2.97 x10^6/uL (3.50-5.40); RED CELL DISTRIBUTION WIDTH 17.5 % (11.5-14.5); WHITE BLOOD COUNT 6.7 x10^3/uL (4.0-11.0)
[2019-01-30 15:59] LABS: CALCIUM 9.3 mg/dL (8.5-10.1); GFR 55.1; POTASSIUM 4.3 mmol/L (3.5-5.1)
[2019-01-30 16:02] LABS: PROTHROMBIN TIME PATIENT 12.6 SEC (11.7-14.0)
[2019-01-30 16:30] VITALS: BP 109/58
[2019-01-30] MEDS ORDERED: traMADol 50 MG TABLET PO PRN (17:30)
[2019-01-30] MEDS ORDERED: IBUPROFEN 200 MG TABLET. PO PRN (17:45)
[2019-01-30 19:00] VITALS: BP 131/71
[2019-01-30] MEDS: ALBUTEROL SULFATE 2.5 MG/3 ML NEBU. NEB SCH (20:00)
[2019-01-30] MEDS: BUDESONIDE 0.5 MG/2 ML NEBU. NEB SCH (20:44)
[2019-01-30] MEDS ORDERED: NON FORMULARY ITEM (Budesonide/Formoterol Fumarate (Symbicort 80-4.5 Mcg Inhaler) 2 PUFF) IH SCH (21:00)
[2019-01-30] MEDS: rOPINIRole 0.25 MG TABLET. PO SCH (21:08)
[2019-01-30] MEDS: OXYBUTYNIN CHLORIDE 5 MG TABLET PO SCH (21:09)
[2019-01-30] MEDS: PENICILLIN V K 250 MG TABLET. PO SCH (21:09)
[2019-01-30] MEDS: SPIRONOLACTONE 25 MG TABLET PO SCH (21:09)
[2019-01-30 23:00] VITALS: BP 237/70
[2019-01-31] VITALS (16 sets, daily range): BP systolic 104–147; BP diastolic 52–83
[2019-01-31] MEDS: HYDROcodone/APAP 5/325MG 1 TAB TABLET PO PRN ×4 (02:28→21:12)
[2019-01-31] MEDS: BUDESONIDE 0.5 MG/2 ML NEBU. NEB SCH ×2 (06:57→20:21)
[2019-01-31] MEDS: ALBUTEROL SULFATE 2.5 MG/3 ML NEBU. NEB SCH ×4 (06:57→20:21)
[2019-01-31] MEDS: metFORMIN XR 500 MG TAB.ER.24H PO SCH ×2 (08:00→18:00)
[2019-01-31] MEDS: OXYBUTYNIN CHLORIDE 5 MG TABLET PO SCH ×3 (09:00→21:12)
[2019-01-31] MEDS ORDERED: LORazepam 0.5 MG TABLET PO SCH (09:00)
[2019-01-31] MEDS ORDERED: LEVOTHYROXINE 25 MCG TABLET. PO SCH (09:00)
[2019-01-31] MEDS: PENICILLIN V K 250 MG TABLET. PO SCH ×4 (09:00→21:12)
[2019-01-31] MEDS ORDERED: LIDOCAINE WITH 8.4% SOD BICARB 3 ML DISP.SYRIN. ONE (09:50)
--- NOTE | 2019-01-31 09:53 | PN ---
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 She was seen in the Emergency Room and was admitted with a plan to consult Dr. Baca to place a chest tube. When I saw her today, she was sitting at the edge of the bed comfortably in no apparent distress. She is pale. No jaundice, cyanosis or thyromegaly. No jugular venous distention. No lower limb edema. PHYSICAL EXAMINATION: VITAL SIGNS: Her heart rate was 60, blood pressure was 128/72, temperature was 98.2, respiratory rate was 18 and oxygen saturation was 94% on room air. The rest of clinical examination is stable. ASSESSMENT AND PLAN: Right-sided loculated hydropneumothorax, after which Dr. Baca was already consulted to place a chest tube. According to Dr. Armijo, this is a trapped lung and she might be discharged with Heimlich valve eventually. MARK MARQUES MD DR: CHARLIE/rafael JOB#: [id number] / [id number]
--- NOTE | 2019-01-31 09:59 | CONS ---
DATE OF CONSULTATION: 01/31/2019 PULMONARY CONSULTATION ATTENDING PHYSICIAN: Dr. Tirado. REASON FOR CONSULTATION: Hydropneumothorax. HISTORY OF PRESENT ILLNESS: The patient is known to us. She is a 68-year-old female who has history of COPD. She was hospitalized in December with [id number] right-sided pleural effusion along with a rounded mass-like density in the right lower lobe as well as in the left upper lobe. There was evidence of mediastinal adenopathy and some adrenal masses. Malignancy was suspected. However, it turned out to be empyema. She has required chest tube and cultures grew Streptococcus intermedius. The patient was subsequently discharged home after removal of chest tube and appropriate treatment with antibiotics. She was seen in the office yesterday when she was having some right-sided chest discomfort. She underwent CT chest, which was done as an outpatient, which showed the hydropneumothorax has increased from the December films. There was still some loculated rounded density in the right lung. The previously seen left upper lobe rounded density had improved and now there was a parenchymal scarring. As a result, she was hospitalized for further chest tube placement. PAST MEDICAL HISTORY: Significant for history of COPD with ongoing tobaccoism, history of multiple lung masses turned out to be empyema with Streptococcus intermedius. Treated with chest tube and antibiotics. History of diabetes. PAST SURGICAL HISTORY: Recent chest tube. ALLERGIES: SULFA. MEDICATIONS: Reviewed as listed in the MRAD. REVIEW OF SYSTEMS: Twelve-point system obtained. Pertinent positives discussed in my history of present illness, otherwise noncontributory. She denies any headaches, no nausea, vomiting or diarrhea. No shortness of breath. No dysuria. No focal weakness. FAMILY HISTORY: Noncontributory to lungs. PHYSICAL EXAMINATION: VITAL SIGNS: Reviewed, pulse ox 94% on room air. NECK: Supple. LUNGS: With diminished breath sounds right chest. CARDIOVASCULAR: With regular rate. ABDOMEN: Soft, nontender. EXTREMITIES: With no pitting edema. LABORATORY DATA: Reviewed. White cell count 6.7, hemoglobin 9.7 and platelets are 319. INR 1.0. IMPRESSION: 1. Increasing hydropneumothorax involving the right lung. Likely trapped lung. However, she was minimally symptomatic with some chest discomfort with no shortness of breath. She would benefit from chest tube to see if the lung re-expands. 2. The patient with empyema in the right lower chest, treated with chest tube and prolonged antibiotics. There was also a left upper lobe rounded density with central necrosis, which also was inflammatory as it has improved on recent CAT scan. She still has multiple rounded densities in the pleura, likely organized pleural thickening. It does not need any intervention at present. 3. Underlying chronic obstructive pulmonary disease with ongoing tobaccoism. RECOMMENDATIONS: 1. CT-guided chest tube by IR. 2. We will follow chest x-ray to see any lung expansion. 3. The patient is anxious to go home. She may be able to go home with a Heimlich valve if needed. 4. We will follow periodic x-rays and in future may be another CAT scan. 5. Continue p.r.n. oxygen. 6. Continue bronchodilators. 7. Discussed with Dr. Tirado, will follow along with you. GILMA LÓPEZ MD DR: MARIAJOSE/rafael JOB#: [id number] / [id number]
--- NOTE | 2019-01-31 10:14 | HP ---
ADMIT DATE: 01/30/2019 HISTORY OF PRESENT ILLNESS: The patient is a 68-year-old female patient who has had a CT scan of her chest done on 01/29/2019 at [facility]. Apparently, the CT scan showed that she has moderate sized right posterior basilar loculated hydropneumothorax or possibly large right basilar cavitary lesion is new in the interval. She has also pleural wall thickening with patchy punctate nodular infiltrate and cavitary lesion noted. She was seen yesterday by her senior ux developer at his office and who in turn sent her to the Emergency Room of [facility] for admission with a plan to place a chest tube. On questioning her, she was actually evaluated in the Emergency Room of [facility]. Chest x-ray confirmed done there showed that she has right basilar loculated hydropneumothorax and was admitted to consult the interventional radiologist to place a chest tube. The patient herself said that she has been complaining of shortness of breath. Denied any cough, phlegm or hemoptysis. Denied any chills, rigors, or fever. Denied any chest pain. Denied any night sweats. PAST MEDICAL HISTORY: Significant for chronic obstructive pulmonary disease. She was admitted on 12/14 with large right-sided partial loculated pleural effusion, status post chest tube placement and removal. The culture showed growth of Streptococcus intermedius and has also large rounded density and fluid collection in the right lower lobe close to the pleura and other density in the left upper lobe with some central necrosis. She has 100-pound weight loss in the last 1 year, history of 40-year tobacco use. The finding of the empyema does not meet criteria for chylothorax. At that time, she was discharged to continue on her pain medication as well as penicillin V potassium 500 mg 4 times a day for 2 weeks together with her Symbicort, metformin, oxybutynin, and levothyroxine. PAST MEDICAL HISTORY: Significant for type 2 diabetes and chronic obstructive pulmonary disease. PAST SURGICAL HISTORY: Significant for chest tube placement and removal. ALLERGIES: SHE IS ALLERGIC TO SULFA DRUGS. FAMILY HISTORY: She has one older sister and one younger brother, both healthy. Her father at age of 84 and mother at age of 80s that she is unable to say what caused her . SOCIAL HISTORY: She lives with her boyfriend. She does not have any children. She continued to smoke a pack a day, continued to smoke despite the advice to contrary. She does not drink alcohol or use any recreational drugs. 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 MEDICATIONS: She is currently on following medications: She was on penicillin V potassium 500 mg 4 times a day, spironolactone 25 mg once a day, ibuprofen 600 mg every 8 hours as needed, hydrocodone/APAP 5/325 one tablet every 6 hours and tramadol 50 mg 3 times a day, sertraline for Zoloft 100 mg daily, lorazepam 0.5 mg daily, lorazepam 0.5 mg at bedtime. She is on Requip 0.5 mg at bedtime. She is on Symbicort 80/4.5 two puffs twice a day, metformin 1000 mg twice a day with meals, levothyroxine sodium 75 mcg once a day, oxybutynin chloride 15 mg daily. She is on ascorbic acid 500 mg daily. PHYSICAL EXAMINATION: GENERAL: On admission, she looked well and was clearly in no apparent respiratory distress. She was somewhat pale, but no jaundice, cyanosis or thyromegaly. No jugular venous distention. No lower limb edema. VITAL SIGNS: Her heart rate was 75, blood pressure was 109/58, temperature was 98, respiratory rate was 17 and oxygen saturation was 94% on room air. HEAD, EYES, EARS, NOSE AND THROAT: Showed normocephalic, atraumatic. NECK: Supple. HEART: Showed normal first and second heart sounds with no gallop or murmur. CHEST: Shows central trachea, equal bilateral expansion, air entry, vesicular sounds with dull percussion noted and absent breath sounds on the right side posteriorly. I could not appreciate any crepitation or rhonchi. ABDOMEN: Slightly distended, soft, nontender. NEUROLOGIC: She is awake, alert, responding appropriately. All cranial nerves intact. EXTREMITIES: She moves extremities without difficulty. She ambulates without assistance or assistive devices. LABORATORY DATA: Her lab work on admission showed a white cell count of 6700, hemoglobin 9.7, hematocrit 29, MCV 97 and platelet count 319,000. Her serum sodium was 136, potassium 4.3, chloride 99, bicarbonate 30, anion gap of 7, BUN 18, creatinine 1, estimated GFR was 55 mL per minute. Her glucose 184, calcium was 9.3. Her prothrombin time, INR and aPTT are all normal. Her chest x-ray showed that she has right basilar loculated hydropneumothorax, has mild right basilar atelectasis again. Obviously CT scan done at [facility] showed that she has loculated effusion and hydropneumothorax. We will consult Dr. Armijo as well as Dr. Barton with a plan to place a chest tube. MARK MARQUES MD DR: CHARLIE/rafael JOB#: [id number] / [id number]
[2019-01-31] MEDS ORDERED: fentaNYL PF VIAL 100 MCG/2 ML VIAL ONE (12:08)
[2019-01-31] MEDS ORDERED: MIDAZOLAM HCL/PF 2 MG/2 ML VIAL. ONE (12:08)
[2019-01-31] MEDS ORDERED: MIDAZOLAM HCL/PF 2 MG/2 ML VIAL. IV ONE (12:45)
[2019-01-31] MEDS ORDERED: fentaNYL PF VIAL 100 MCG/2 ML VIAL IV ONE (12:45)
[2019-01-31] MEDS ORDERED: LIDOCAINE WITH 8.4% SOD BICARB 3 ML DISP.SYRIN. IJ ONE (12:45)
[2019-01-31] MEDS: ASCORBIC ACID 500 MG TABLET PO SCH (14:46)
[2019-01-31] MEDS: LORazepam 0.5 MG TABLET PO SCH (14:47)
[2019-01-31] MEDS: SERTRALINE 50 MG TABLET. PO SCH (14:47)
[2019-01-31] MEDS: SPIRONOLACTONE 25 MG TABLET PO SCH ×2 (14:47→21:11)
[2019-01-31] MEDS: LEVOTHYROXINE 75 MCG TABLET PO SCH (14:47)
--- NOTE | 2019-01-31 16:25 | NUR ---
SW consulted for pt feels unsafe at home. Chart reviewed and discussed with RN. Pt lives at home with spouse. Pt currently has chest tube. Attempted to meet with pt regarding referral but pt was asleep and did not awaken. Will attempt tomorrow.
[2019-01-31] MEDS: rOPINIRole 0.25 MG TABLET. PO SCH (21:12)
[2019-02-01 02:55] VITALS: BP 140/65
[2019-02-01 07:00] VITALS: BP 123/61
[2019-02-01] MEDS: ALBUTEROL SULFATE 2.5 MG/3 ML NEBU. NEB SCH ×4 (07:32→19:45)
[2019-02-01] MEDS: BUDESONIDE 0.5 MG/2 ML NEBU. NEB SCH ×2 (07:32→19:45)
[2019-02-01] MEDS: metFORMIN XR 500 MG TAB.ER.24H PO SCH ×2 (07:46→17:00)
[2019-02-01] MEDS: LEVOTHYROXINE 75 MCG TABLET PO SCH (07:46)
[2019-02-01] MEDS: ASCORBIC ACID 500 MG TABLET PO SCH (09:08)
[2019-02-01] MEDS: SPIRONOLACTONE 25 MG TABLET PO SCH ×2 (09:08→21:43)
[2019-02-01] MEDS: PENICILLIN V K 250 MG TABLET. PO SCH ×4 (09:08→21:45)
[2019-02-01] MEDS: OXYBUTYNIN CHLORIDE 5 MG TABLET PO SCH ×3 (09:08→21:44)
[2019-02-01] MEDS: SERTRALINE 50 MG TABLET. PO SCH (09:08)
[2019-02-01] MEDS: LORazepam 0.5 MG TABLET PO SCH (09:37)
[2019-02-01] MEDS: HYDROcodone/APAP 5/325MG 1 TAB TABLET PO PRN ×2 (09:37→16:07)
[2019-02-01 11:00] VITALS: BP 109/62
--- NOTE | 2019-02-01 11:34 | PN ---
DATE: 02/01/2019 SUBJECTIVE: The patient is sitting at the edge of the bed comfortably, in no apparent distress. She has a chest tube placed under CT guidance by Dr. Barton to the underwater seal. She continues to have air leak; however, she generally feeling much better. Denied any chest pain or shortness of breath. OBJECTIVE: GENERAL: When I examined her, she looked pale, cachectic, but no jaundice, cyanosis, or thyromegaly. No jugular venous distention. No limb edema. VITAL SIGNS: Her heart rate was 65, blood pressure was 123/61, temperature was 98.5, respiratory rate was 17, and oxygen saturation was 97%. HEAD, EYES, EARS, NOSE, AND THROAT: Showed normocephalic, atraumatic. NECK: Supple. HEART: Showed normal first and second heart sounds with no gallop, rub, or murmur. CHEST: Shows central trachea, equal bilateral expansion, air entry, vesicular sounds. No crepitation or rhonchi. She has chest tube to the right hemothorax to underwater seal. ABDOMEN: Scaphoid, soft, nontender. NEUROLOGIC: She is awake, alert, responding appropriately. All cranial nerves intact. She moves extremities without difficulty. She ambulates without assistance or assistive devices. LABORATORY DATA: Showed her hemoglobin was 10, hematocrit 29 with normal white cell count and platelets. Her chemistry showed a BUN of 18, creatinine 1. Her blood sugar seems to be reasonably controlled. ASSESSMENT: 1. Right-sided hydropneumothorax, for which did have a chest tube placed successfully yesterday. 2. She was recently admitted with empyema of the right lower chest, treated with chest tube and prolonged antibiotic. 3. Chronic obstructive pulmonary disease. PLAN: To continue with chest tube. Continue with pain management. Continue to monitor blood sugar. Continue with antibiotic in the form of penicillin V 4 times a day. MARK MARQUES MD DR: CHARLIE/rafael JOB#: [id number] / [id number]
--- NOTE | 2019-02-01 11:51 | PDOC ---
PULMONARY PROGRESS NOTES Subjective wants to go home does not want to stay in hospital s/p right chest tube positive air leak Vitals Vital Signs Date Time Temp Pulse Resp B/P (MAP) Pulse Ox O2 Delivery O2 Flow Rate FiO2 02/01/19 11:34 97 Room Air 02/01/19 07:00 98.5 65 17 123/61 (81) 98.5 01/31/19 12:51 2.0 General: Alert, No acute distress HEENT: Other Lungs: Other (decrease right base) Cardiovascular: S1, S2 Abdomen: Soft, Non-tender Neuro Exam: Alert Extremities: No Edema Skin: Warm Labs Laboratory Tests Test 01/30/19 15:34 01/30/19 17:12 01/30/19 21:16 01/31/19 07:24 White Blood Count 6.7 x10^3/uL (4.0-11.0) Red Blood Count 2.97 x10^6/uL (3.50-5.40) Hemoglobin 9.7 g/dL (12.0-15.5) Hematocrit 28.8 % (36.0-47.0) Mean Corpuscular Volume 97 fL (79-100) Mean Corpuscular Hemoglobin 33 pg (25-35) Mean Corpuscular Hemoglobin Concent 34 g/dL (31-37) Red Cell Distribution Width 17.5 % (11.5-14.5) Platelet Count 319 x10^3/uL (140-400) Neutrophils (%) (Auto) 73 % (31-73) Lymphocytes (%) (Auto) 19 % (24-48) Monocytes (%) (Auto) 7 % (0-9) Eosinophils (%) (Auto) 1 % (0-3) Basophils (%) (Auto) 1 % (0-3) Neutrophils # (Auto) 4.8 x10^3/uL (1.8-7.7) Lymphocytes # (Auto) 1.3 x10^3/uL (1.0-4.8) Monocytes # (Auto) 0.4 x10^3/uL (0.0-1.1) Eosinophils # (Auto) 0.1 x10^3/uL (0.0-0.7) Basophils # (Auto) 0.0 x10^3/uL (0.0-0.2) Prothrombin Time 12.6 SEC (11.7-14.0) Prothromb Time International Ratio 1.0 (0.8-1.1) Activated Partial Thromboplast Time 39 SEC (24-38) Sodium Level 136 mmol/L (136-145) Potassium Level 4.3 mmol/L (3.5-5.1) Chloride Level 99 mmol/L (98-107) Carbon Dioxide Level 30 mmol/L (21-32) Anion Gap 7 (6-14) Blood Urea Nitrogen 18 mg/dL (7-20) Creatinine 1.0 mg/dL (0.6-1.0) Estimated GFR (Cockcroft-Gault) 55.1 Glucose Level 184 mg/dL (70-99) Calcium Level 9.3 mg/dL (8.5-10.1) Glucose (Fingerstick) 118 mg/dL (70-99) 138 mg/dL (70-99) 99 mg/dL (70-99) Test 01/31/19 11:46 01/31/19 16:51 01/31/19 21:43 02/01/19 07:27 Glucose (Fingerstick) 154 mg/dL (70-99) 203 mg/dL (70-99) 179 mg/dL (70-99) 122 mg/dL (70-99) Laboratory Tests Test 01/31/19 16:51 01/31/19 21:43 02/01/19 07:27 Glucose (Fingerstick) 203 mg/dL (70-99) 179 mg/dL (70-99) 122 mg/dL (70-99) Medications Active Scripts Medications Dose Route/Sig Max Daily Dose Days Date Category Lorazepam 0.5 Mg Tablet 1 Tab PO DAILY 3 12/24/18 Rx Penicillin V Potassium 500 Mg Tablet 1 Tab PO QID 14 12/24/18 Rx Ascorbic Acid 500 Mg Tablet 500 Mg PO DAILY 12/16/18 Reported Tramadol Hcl 50 Mg Tablet 50 Mg PO TID PRN PRN 12/16/18 Reported Symbicort 80-4.5 Mcg Inhaler (Budesonide/Formoterol Fumarate) 10.2 Gm Hfa.aer.ad 2 Puff IH BID 12/16/18 Reported [place] 5-325 Tablet (Acetaminophen/Hydrocodone Bitart) 1 Each Tablet 1 Tab PO PRN Q6HRS PRN 12/16/18 Reported Requip (Ropinirole Hcl) 0.25 Mg Tablet 0.25 Mg PO HS 12/16/18 Reported Levothyroxine Sodium 75 Mcg Tablet 1 Tab PO DAILY 12/16/18 Reported Spironolactone 25 Mg Tablet 1 Tab PO BID 12/16/18 Reported Ibuprofen 600 Mg Tablet 600 Mg PO PRN Q8HRS PRN 12/16/18 Reported Zoloft (Sertraline Hcl) 100 Mg Tablet 2 Tab PO DAILY 12/16/18 Reported Levothyroxine Sodium 25 Mcg Tablet 1 Tab PO DAILY 12/13/18 Reported Lorazepam 0.5 Mg Tablet 1 Tab PO DAILY 12/13/18 Reported Oxybutynin Chloride Er (Oxybutynin Chloride) 15 Mg Tab.er.24 1 Tab PO DAILY 12/13/18 Reported Metformin Hcl Er (Metformin Hcl) 500 Mg Tab.er.24h 1,000 Mg PO BIDWMEALS 12/13/18 Reported Comments cxr 02/01 small right hydroptx Impression . 1. Increasing hydropneumothorax involving the right lung as OP. Likely trapped lung. However, she was minimally symptomatic with some chest discomfort with no shortness of breath. she is s/p right chest tube 2. The patient with empyema in the right lower chest, treated with chest tube and prolonged antibiotics. There was also a left upper lobe rounded density with central necrosis, which also was inflammatory as it has improved on recent CAT scan. She still has multiple rounded densities in the pleura, likely organized pleural thickening. It does not need any intervention at present. 3. Underlying chronic obstructive pulmonary disease with ongoing tobaccoism. Plan . 1. CT-guided chest tube 01/31. Air leak, small RLL hydro-PTX 2. We will follow chest x-ray to see any lung expansion. 3. The patient is anxious to go home. She may be able to go home with a Heimlich valve if no improvement in air leak by Monday. She is agreeable to stay till then 4. We will follow x-rays 5. Continue p.r.n. oxygen. 6. Continue bronchodilators. 7. Discussed with Dr. Tirado, will follow along with you. GILMA LÓPEZ MD Feb 01, 2019 11:51
[2019-02-01 15:00] VITALS: BP 120/54
--- NOTE | 2019-02-01 15:11 | NUR ---
Dressing changed on chest tube site. No complications.
--- NOTE | 2019-02-01 15:56 | RAD ---
CHEST AP ONLY Clinical Indication: Chest tube placement Comparison: 01/30/2019 Chest x-ray exam. Findings: Portable upright frontal view of the chest was obtained. Right basilar pigtail catheter is present overlying the region of the right basilar hydropneumothorax. Fluid level noted in the right lung base. Small right pleural effusion noted. Associated adjacent atelectasis at the right base. Nonspecific interstitial thickening of the lung alegria diffusely noted. The cardiomediastinal silhouette is normal. IMPRESSION: A pigtail catheter overlies the right basilar pneumothorax.. Electronically signed by: Angel Robins MD (02/01/2019 3:53 PM) [facility]
--- NOTE | 2019-02-01 16:50 | NUR ---
SW following pt. She denies any need and does not remember stating she does not feel safe at home. Pt denies any other needs at this time.
[2019-02-01 19:00] VITALS: BP 117/65
[2019-02-01] MEDS: rOPINIRole 0.25 MG TABLET. PO SCH (21:44)
[2019-02-01] MEDS: LACTOBACILLUS RHAMNOSUS GG 1 CAPSULE. PO SCH (21:45)
[2019-02-01 23:00] VITALS: BP 121/61
[2019-02-02 03:00] VITALS: BP 131/72
[2019-02-02] MEDS: BUDESONIDE 0.5 MG/2 ML NEBU. NEB SCH ×2 (06:15→20:37)
[2019-02-02] MEDS: ALBUTEROL SULFATE 2.5 MG/3 ML NEBU. NEB SCH ×4 (06:15→20:37)
[2019-02-02 06:27] LABS: HEMATOCRIT 32.8 % (36.0-47.0); HEMOGLOBIN 10.7 g/dL (12.0-15.5); RED BLOOD COUNT 3.34 x10^6/uL (3.50-5.40); RED CELL DISTRIBUTION WIDTH 16.8 % (11.5-14.5); WHITE BLOOD COUNT 7.1 x10^3/uL (4.0-11.0)
[2019-02-02 06:47] LABS: ALBUMIN 3.1 g/dL (3.4-5.0); ALBUMIN/GLOBULIN RATIO 0.7 (1.0-1.7); CALCIUM 9.7 mg/dL (8.5-10.1); GFR 55.1; TOTAL BILIRUBIN 0.3 mg/dL (0.2-1.0); TOTAL PROTEIN 7.8 g/dL (6.4-8.2)
[2019-02-02 06:54] LABS: POTASSIUM 5.5 mmol/L (3.5-5.1)
[2019-02-02 07:00] VITALS: BP 133/71
--- NOTE | 2019-02-02 07:47 | PDOC ---
PULMONARY PROGRESS NOTES Subjective wants to go home s/p right chest tube positive air leak Vitals Vital Signs Date Time Temp Pulse Resp B/P (MAP) Pulse Ox O2 Delivery O2 Flow Rate FiO2 02/02/19 06:15 Room Air 02/02/19 03:00 97.7 68 17 131/72 (91) 94 97.7 General: Alert, No acute distress HEENT: Other Lungs: Other (decrease right base) Cardiovascular: S1, S2 Abdomen: Soft, Non-tender Neuro Exam: Alert Extremities: No Edema Skin: Warm Labs Laboratory Tests Test 01/31/19 11:46 01/31/19 16:51 01/31/19 21:43 02/01/19 07:27 Glucose (Fingerstick) 154 mg/dL (70-99) 203 mg/dL (70-99) 179 mg/dL (70-99) 122 mg/dL (70-99) Test 02/01/19 11:37 02/01/19 16:52 02/01/19 20:44 02/02/19 05:55 Glucose (Fingerstick) 142 mg/dL (70-99) 140 mg/dL (70-99) 133 mg/dL (70-99) White Blood Count 7.1 x10^3/uL (4.0-11.0) Red Blood Count 3.34 x10^6/uL (3.50-5.40) Hemoglobin 10.7 g/dL (12.0-15.5) Hematocrit 32.8 % (36.0-47.0) Mean Corpuscular Volume 98 fL (79-100) Mean Corpuscular Hemoglobin 32 pg (25-35) Mean Corpuscular Hemoglobin Concent 33 g/dL (31-37) Red Cell Distribution Width 16.8 % (11.5-14.5) Platelet Count 322 x10^3/uL (140-400) Sodium Level 136 mmol/L (136-145) Potassium Level 5.5 mmol/L (3.5-5.1) Chloride Level 101 mmol/L (98-107) Carbon Dioxide Level 29 mmol/L (21-32) Anion Gap 6 (6-14) Blood Urea Nitrogen 23 mg/dL (7-20) Creatinine 1.0 mg/dL (0.6-1.0) Estimated GFR (Cockcroft-Gault) 55.1 BUN/Creatinine Ratio 23 (6-20) Glucose Level 123 mg/dL (70-99) Calcium Level 9.7 mg/dL (8.5-10.1) Total Bilirubin 0.3 mg/dL (0.2-1.0) Aspartate Amino Transf (AST/SGOT) 13 U/L (15-37) Alanine Aminotransferase (ALT/SGPT) 11 U/L (14-59) Alkaline Phosphatase 61 U/L (46-116) Total Protein 7.8 g/dL (6.4-8.2) Albumin 3.1 g/dL (3.4-5.0) Albumin/Globulin Ratio 0.7 (1.0-1.7) Laboratory Tests Test 02/01/19 11:37 02/01/19 16:52 02/01/19 20:44 02/02/19 05:55 Glucose (Fingerstick) 142 mg/dL (70-99) 140 mg/dL (70-99) 133 mg/dL (70-99) White Blood Count 7.1 x10^3/uL (4.0-11.0) Red Blood Count 3.34 x10^6/uL (3.50-5.40) Hemoglobin 10.7 g/dL (12.0-15.5) Hematocrit 32.8 % (36.0-47.0) Mean Corpuscular Volume 98 fL (79-100) Mean Corpuscular Hemoglobin 32 pg (25-35) Mean Corpuscular Hemoglobin Concent 33 g/dL (31-37) Red Cell Distribution Width 16.8 % (11.5-14.5) Platelet Count 322 x10^3/uL (140-400) Sodium Level 136 mmol/L (136-145) Potassium Level 5.5 mmol/L (3.5-5.1) Chloride Level 101 mmol/L (98-107) Carbon Dioxide Level 29 mmol/L (21-32) Anion Gap 6 (6-14) Blood Urea Nitrogen 23 mg/dL (7-20) Creatinine 1.0 mg/dL (0.6-1.0) Estimated GFR (Cockcroft-Gault) 55.1 BUN/Creatinine Ratio 23 (6-20) Glucose Level 123 mg/dL (70-99) Calcium Level 9.7 mg/dL (8.5-10.1) Total Bilirubin 0.3 mg/dL (0.2-1.0) Aspartate Amino Transf (AST/SGOT) 13 U/L (15-37) Alanine Aminotransferase (ALT/SGPT) 11 U/L (14-59) Alkaline Phosphatase 61 U/L (46-116) Total Protein 7.8 g/dL (6.4-8.2) Albumin 3.1 g/dL (3.4-5.0) Albumin/Globulin Ratio 0.7 (1.0-1.7) Medications Active Scripts Medications Dose Route/Sig Max Daily Dose Days Date Category Lorazepam 0.5 Mg Tablet 1 Tab PO DAILY 3 12/24/18 Rx Penicillin V Potassium 500 Mg Tablet 1 Tab PO QID 14 12/24/18 Rx Ascorbic Acid 500 Mg Tablet 500 Mg PO DAILY 12/16/18 Reported Tramadol Hcl 50 Mg Tablet 50 Mg PO TID PRN PRN 12/16/18 Reported Symbicort 80-4.5 Mcg Inhaler (Budesonide/Formoterol Fumarate) 10.2 Gm Hfa.aer.ad 2 Puff IH BID 12/16/18 Reported [place] 5-325 Tablet (Acetaminophen/Hydrocodone Bitart) 1 Each Tablet 1 Tab PO PRN Q6HRS PRN 12/16/18 Reported Requip (Ropinirole Hcl) 0.25 Mg Tablet 0.25 Mg PO HS 12/16/18 Reported Levothyroxine Sodium 75 Mcg Tablet 1 Tab PO DAILY 12/16/18 Reported Spironolactone 25 Mg Tablet 1 Tab PO BID 12/16/18 Reported Ibuprofen 600 Mg Tablet 600 Mg PO PRN Q8HRS PRN 12/16/18 Reported Zoloft (Sertraline Hcl) 100 Mg Tablet 2 Tab PO DAILY 12/16/18 Reported Levothyroxine Sodium 25 Mcg Tablet 1 Tab PO DAILY 12/13/18 Reported Lorazepam 0.5 Mg Tablet 1 Tab PO DAILY 12/13/18 Reported Oxybutynin Chloride Er (Oxybutynin Chloride) 15 Mg Tab.er.24 1 Tab PO DAILY 12/13/18 Reported Metformin Hcl Er (Metformin Hcl) 500 Mg Tab.er.24h 1,000 Mg PO BIDWMEALS 12/13/18 Reported Comments reviewed cxr 02/02 1. No significant change in a pleural drainage catheter overlying a thick-walled cavitary lesion or loculated thick-walled hydropneumothorax at the right lung base. 2. Stable right lower lobe atelectasis or interstitial infiltrate and suspected linear left upper lobe atelectasis or infiltrate. Superimposed on stable diffuse interstitial prominence. Impression . 1. hydropneumothorax involving the right lung as OP. Likely trapped lung. However, she was minimally symptomatic with some chest discomfort with no shortness of breath. s/p right chest tube 2. The patient with empyema in the right lower chest, treated with chest tube and prolonged antibiotics. There was also a left upper lobe rounded density with central necrosis, which also was inflammatory as it has improved on recent CAT scan. She still has multiple rounded densities in the pleura, likely organized pleural thickening. It does not need any intervention at present. 3. Underlying chronic obstructive pulmonary disease with ongoing tobaccoism. Plan . 1. CT-guided chest tube 01/31. still has Air leak, cont CT w suction 2. We will follow chest x-ray to see any lung expansion. 3. The patient is anxious to go home. She may be able to go home with a Heimlich valve if no improvement in air leak by Monday. 4. We will follow x-rays 5. Continue p.r.n. oxygen. 6. Continue bronchodilators. 7. Discussed with pt and rn will follow along with you. GREG DE LA FUENTE MD Feb 02, 2019 07:47
--- NOTE | 2019-02-02 07:50 | RAD ---
EXAM: Chest, single view. HISTORY: Chest tube. COMPARISON: 02/01/2019 FINDINGS: A frontal view of the chest is obtained. There is a pleural drainage catheter overlying the superior aspect of a thick-walled cavitary lesion or thick walled loculated hydropneumothorax within the right lower thorax, better characterized on the CT dated 01/30/2019. There is suspected right lower lobe atelectasis or interstitial infiltrate. There is linear atelectasis or infiltrate within the left upper lobe. The heart is normal in size. There are healed rib fractures. IMPRESSION: 1. No significant change in a pleural drainage catheter overlying a thick-walled cavitary lesion or loculated thick-walled hydropneumothorax at the right lung base. 2. Stable right lower lobe atelectasis or interstitial infiltrate and suspected linear left upper lobe atelectasis or infiltrate. Superimposed on stable diffuse interstitial prominence. Electronically signed by: Ofelia Xavier MD (02/02/2019 7:47 AM) [facility]
--- NOTE | 2019-02-02 08:59 | PN ---
DATE: 02/02/2019 SUBJECTIVE: The patient is sitting at the edge of the bed comfortably in no apparent distress. On questioning her, denied any complaint, in particular denied any chest pain, shortness of breath, cough, phlegm. Denied any chills, rigors, or fever. She continued to have a chest tube to underwater seal and continued to have air leak. OBJECTIVE: GENERAL: When I examined her, she looked well, pale, cachectic, but no jaundice, cyanosis, or thyromegaly. No jugular venous distention noted. No lower limb edema. VITAL SIGNS: Her heart rate was 68, blood pressure 131/72, temperature was 97.7, respiratory rate was 17, and oxygen saturation was 94%. HEAD, EYES, EARS, NOSE, AND THROAT: Normocephalic, atraumatic. NECK: Supple. CARDIAC: Normal first and second heart sounds. No gallop or murmur. CHEST: Clear to auscultation. No crepitation or rhonchi, with a chest tube to the right hemothorax to underwater seal. ABDOMEN: Scaphoid, soft, nontender. NEUROLOGIC: She is awake, alert, responding appropriately. All cranial nerves intact. EXTREMITIES: She moves extremities without difficulty. She ambulates without assistance or assistive devices. Her intake and output are incompletely recorded. LABORATORY DATA: Her lab work this morning showed a serum sodium 136, potassium 5.5, chloride 101, bicarbonate 29. Anion gap of 6. BUN 23, creatinine 1. Estimated GFR was 55 mL per minute. Her glucose 123, calcium 9.7. Total bilirubin, AST, ALT, alkaline phosphatase were normal. Her total protein was 7.8, albumin was 3.1. Her white cell count was 7100, hemoglobin 11, hematocrit 33, MCV 98, and platelet count 322,000. ASSESSMENT: 1. Right-sided hydropneumothorax, which she had a chest tube placed successfully. 2. Recent admission for right-sided empyema, treated with chest tube and prolonged antibiotic. 3. Chronic obstructive pulmonary disease. 4. Type 2 diabetes mellitus. 5. Severe protein-calorie malnutrition. PLAN: To continue chest tube. Continue with pain management. Continue with definitive blood sugar and continue with antibiotic in the form of penicillin v. MARK MARQUES MD DR: CHARLIE/rafael JOB#: [id number] / [id number]
[2019-02-02] MEDS: metFORMIN XR 500 MG TAB.ER.24H PO SCH ×2 (10:09→16:54)
[2019-02-02] MEDS: LACTOBACILLUS RHAMNOSUS GG 1 CAPSULE. PO SCH ×2 (10:09→20:16)
[2019-02-02] MEDS: PENICILLIN V K 250 MG TABLET. PO SCH ×4 (10:10→20:15)
[2019-02-02] MEDS: OXYBUTYNIN CHLORIDE 5 MG TABLET PO SCH ×3 (10:10→20:15)
[2019-02-02] MEDS: LEVOTHYROXINE 75 MCG TABLET PO SCH (10:10)
[2019-02-02] MEDS: SERTRALINE 50 MG TABLET. PO SCH (10:11)
[2019-02-02] MEDS: ASCORBIC ACID 500 MG TABLET PO SCH (10:11)
[2019-02-02 11:00] VITALS: BP 140/87
[2019-02-02 15:00] VITALS: BP 119/74
[2019-02-02 19:00] VITALS: BP 139/79
[2019-02-02] MEDS: rOPINIRole 0.25 MG TABLET. PO SCH (20:15)
[2019-02-02] MEDS: LORazepam 0.5 MG TABLET PO PRN (20:16)
[2019-02-02 23:04] VITALS: BP 114/49
[2019-02-03 03:04] VITALS: BP 145/84
[2019-02-03 05:21] LABS: CALCIUM 9.5 mg/dL (8.5-10.1); CREATININE 0.9 mg/dL (0.6-1.0); GFR 62.3; POTASSIUM 5.2 mmol/L (3.5-5.1)
[2019-02-03] MEDS: BUDESONIDE 0.5 MG/2 ML NEBU. NEB SCH ×2 (06:13→18:31)
[2019-02-03] MEDS: ALBUTEROL SULFATE 2.5 MG/3 ML NEBU. NEB SCH ×4 (06:14→18:31)
[2019-02-03 07:00] VITALS: BP 133/79
--- NOTE | 2019-02-03 08:02 | PDOC ---
PULMONARY PROGRESS NOTES Subjective wants to go home s/p right chest tube positive air leak has occ cough, no sob Vitals Vital Signs Date Time Temp Pulse Resp B/P (MAP) Pulse Ox O2 Delivery O2 Flow Rate FiO2 02/03/19 06:13 Room Air 02/03/19 03:04 98.2 74 20 145/84 (104) 94 98.2 General: Alert, No acute distress HEENT: Other Lungs: Other (decrease right base, r ct) Cardiovascular: S1, S2 Abdomen: Soft, Non-tender Neuro Exam: Alert Extremities: No Edema Skin: Warm Labs Laboratory Tests Test 02/01/19 11:37 02/01/19 16:52 02/01/19 20:44 02/02/19 05:55 Glucose (Fingerstick) 142 mg/dL (70-99) 140 mg/dL (70-99) 133 mg/dL (70-99) White Blood Count 7.1 x10^3/uL (4.0-11.0) Red Blood Count 3.34 x10^6/uL (3.50-5.40) Hemoglobin 10.7 g/dL (12.0-15.5) Hematocrit 32.8 % (36.0-47.0) Mean Corpuscular Volume 98 fL (79-100) Mean Corpuscular Hemoglobin 32 pg (25-35) Mean Corpuscular Hemoglobin Concent 33 g/dL (31-37) Red Cell Distribution Width 16.8 % (11.5-14.5) Platelet Count 322 x10^3/uL (140-400) Sodium Level 136 mmol/L (136-145) Potassium Level 5.5 mmol/L (3.5-5.1) Chloride Level 101 mmol/L (98-107) Carbon Dioxide Level 29 mmol/L (21-32) Anion Gap 6 (6-14) Blood Urea Nitrogen 23 mg/dL (7-20) Creatinine 1.0 mg/dL (0.6-1.0) Estimated GFR (Cockcroft-Gault) 55.1 BUN/Creatinine Ratio 23 (6-20) Glucose Level 123 mg/dL (70-99) Calcium Level 9.7 mg/dL (8.5-10.1) Total Bilirubin 0.3 mg/dL (0.2-1.0) Aspartate Amino Transf (AST/SGOT) 13 U/L (15-37) Alanine Aminotransferase (ALT/SGPT) 11 U/L (14-59) Alkaline Phosphatase 61 U/L (46-116) Total Protein 7.8 g/dL (6.4-8.2) Albumin 3.1 g/dL (3.4-5.0) Albumin/Globulin Ratio 0.7 (1.0-1.7) Test 02/02/19 08:10 02/02/19 11:41 02/02/19 16:42 02/02/19 20:20 Glucose (Fingerstick) 97 mg/dL (70-99) 97 mg/dL (70-99) 221 mg/dL (70-99) 112 mg/dL (70-99) Test 02/03/19 04:00 02/03/19 07:26 Sodium Level 135 mmol/L (136-145) Potassium Level 5.2 mmol/L (3.5-5.1) Chloride Level 100 mmol/L (98-107) Carbon Dioxide Level 26 mmol/L (21-32) Anion Gap 9 (6-14) Blood Urea Nitrogen 23 mg/dL (7-20) Creatinine 0.9 mg/dL (0.6-1.0) Estimated GFR (Cockcroft-Gault) 62.3 Glucose Level 178 mg/dL (70-99) Calcium Level 9.5 mg/dL (8.5-10.1) Glucose (Fingerstick) 138 mg/dL (70-99) Laboratory Tests Test 02/02/19 08:10 02/02/19 11:41 02/02/19 16:42 02/02/19 20:20 Glucose (Fingerstick) 97 mg/dL (70-99) 97 mg/dL (70-99) 221 mg/dL (70-99) 112 mg/dL (70-99) Test 02/03/19 04:00 02/03/19 07:26 Sodium Level 135 mmol/L (136-145) Potassium Level 5.2 mmol/L (3.5-5.1) Chloride Level 100 mmol/L (98-107) Carbon Dioxide Level 26 mmol/L (21-32) Anion Gap 9 (6-14) Blood Urea Nitrogen 23 mg/dL (7-20) Creatinine 0.9 mg/dL (0.6-1.0) Estimated GFR (Cockcroft-Gault) 62.3 Glucose Level 178 mg/dL (70-99) Calcium Level 9.5 mg/dL (8.5-10.1) Glucose (Fingerstick) 138 mg/dL (70-99) Medications Active Scripts Medications Dose Route/Sig Max Daily Dose Days Date Category Lorazepam 0.5 Mg Tablet 1 Tab PO DAILY 3 12/24/18 Rx Penicillin V Potassium 500 Mg Tablet 1 Tab PO QID 14 12/24/18 Rx Ascorbic Acid 500 Mg Tablet 500 Mg PO DAILY 12/16/18 Reported Tramadol Hcl 50 Mg Tablet 50 Mg PO TID PRN PRN 12/16/18 Reported Symbicort 80-4.5 Mcg Inhaler (Budesonide/Formoterol Fumarate) 10.2 Gm Hfa.aer.ad 2 Puff IH BID 12/16/18 Reported [place] 5-325 Tablet (Acetaminophen/Hydrocodone Bitart) 1 Each Tablet 1 Tab PO PRN Q6HRS PRN 12/16/18 Reported Requip (Ropinirole Hcl) 0.25 Mg Tablet 0.25 Mg PO HS 12/16/18 Reported Levothyroxine Sodium 75 Mcg Tablet 1 Tab PO DAILY 12/16/18 Reported Spironolactone 25 Mg Tablet 1 Tab PO BID 12/16/18 Reported Ibuprofen 600 Mg Tablet 600 Mg PO PRN Q8HRS PRN 12/16/18 Reported Zoloft (Sertraline Hcl) 100 Mg Tablet 2 Tab PO DAILY 12/16/18 Reported Levothyroxine Sodium 25 Mcg Tablet 1 Tab PO DAILY 12/13/18 Reported Lorazepam 0.5 Mg Tablet 1 Tab PO DAILY 12/13/18 Reported Oxybutynin Chloride Er (Oxybutynin Chloride) 15 Mg Tab.er.24 1 Tab PO DAILY 12/13/18 Reported Metformin Hcl Er (Metformin Hcl) 500 Mg Tab.er.24h 1,000 Mg PO BIDWMEALS 12/13/18 Reported Comments reviewed cxr 02/02 1. No significant change in a pleural drainage catheter overlying a thick-walled cavitary lesion or loculated thick-walled hydropneumothorax at the right lung base. 2. Stable right lower lobe atelectasis or interstitial infiltrate and suspected linear left upper lobe atelectasis or infiltrate. Superimposed on stable diffuse interstitial prominence. Impression . 1. hydropneumothorax involving the right lung as OP. Likely trapped lung. However, she was minimally symptomatic with some chest discomfort with no shortness of breath. s/p right chest tube 2. The patient with empyema in the right lower chest, treated with chest tube and prolonged antibiotics. There was also a left upper lobe rounded density with central necrosis, which also was inflammatory as it has improved on recent CAT scan. She still has multiple rounded densities in the pleura, likely organized pleural thickening. It does not need any intervention at present. 3. Underlying chronic obstructive pulmonary disease with ongoing tobaccoism. Plan . 1. CT-guided chest tube 01/31. still has Air leak, cont CT w suction 2. will do ct to have a better look at abnl cxr and hydroptx. ? need for resection 3. The patient is anxious to go home. She may be able to go home with a Heimlich valve if no improvement in air leak by Monday. 4. We will follow x-rays 5. Continue p.r.n. oxygen. 6. Continue bronchodilators. 7. Discussed with pt and rn will follow along with you. GREG DE LA FUENTE MD Feb 03, 2019 08:02
--- NOTE | 2019-02-03 09:22 | RAD ---
EXAM: Chest, single view. HISTORY: Hydropneumothorax. COMPARISON: 02/02/2019, 01/31/2019 and 12/18/2018. FINDINGS: There has been no change in a pleural drainage catheter overlying the right lower thorax with associated thick walled cavitary lesion or loculated thick-walled hydropneumothorax at the right lung base. There are scattered nodular opacities within both lungs, also stable in appearance. The heart is normal in size. IMPRESSION: 1. No significant change in a right basilar pleural drainage catheter within a thick-walled cavitary lesion or thick-walled loculated hydropneumothorax. This is better characterized on prior CTs. 2. Scattered nodular opacities throughout both lungs possibly due to multifocal infiltrate or a postinfectious or postinflammatory etiology. This is also better characterized on the prior CTs. Electronically signed by: Ofelia Xavier MD (02/03/2019 9:19 AM) [facility]
[2019-02-03] MEDS: OXYBUTYNIN CHLORIDE 5 MG TABLET PO SCH ×3 (09:25→20:40)
[2019-02-03] MEDS: SERTRALINE 50 MG TABLET. PO SCH (09:25)
[2019-02-03] MEDS: metFORMIN XR 500 MG TAB.ER.24H PO SCH ×2 (09:25→17:06)
[2019-02-03] MEDS: LACTOBACILLUS RHAMNOSUS GG 1 CAPSULE. PO SCH ×2 (09:25→20:40)
[2019-02-03] MEDS: LEVOTHYROXINE 75 MCG TABLET PO SCH (09:25)
[2019-02-03] MEDS: ASCORBIC ACID 500 MG TABLET PO SCH (09:25)
--- NOTE | 2019-02-03 09:30 | RAD ---
EXAM: Chest CT without intravenous contrast. HISTORY: Hydropneumothorax. TECHNIQUE: Computed tomographic images of the chest were obtained without contrast. Multiplanar reformatting was performed. *One or more of the following individualized dose reduction techniques were utilized for this examination: 1. Automated exposure control. 2. Adjustment of the mA and/or kV according to patient size. 3. Use of iterative reconstruction technique. COMPARISON: 01/31/2019 and 12/18/2018. FINDINGS: There is a pigtail drainage catheter within the posterior aspect of a large cavity containing a small amount of fluid and with surrounding thick wall within the right lower thorax. The size of this cavity measures approximately 17 cm, similar compared to the CT obtained for catheter placement purposes on 01/31/2019. There has been interval resolution of a loculated fluid collection within the anterior left upper lobe. There is a small residual cavity in this location with surrounding groundglass measuring 1.2 cm. There has been interval decrease in soft tissue density surrounding the adjacent cavity measuring 1.3 cm. There are multiple scattered nodular and spiculated groundglass opacities throughout the right greater than left lung, increased compared to the prior study. The interval change favors an infectious etiology. There is right hemithorax volume loss with slight rightward mediastinal shift. There is right lower lobe bronchial wall thickening. The heart is normal in size. There is coronary artery atherosclerosis. No pathologically enlarged lymph node is seen. There is suspected pleural based consolidation within the medial right lung base measuring 2.2 cm, slightly increased compared to the prior study. There is a heterogeneous enlarged right greater than left thyroid lobe likely due to a goiter. There is hepatosplenomegaly. There is right renal atrophy. There is thoracic kyphosis. There are few benign bone islands. IMPRESSION: 1. Drainage catheter within the posterior aspect of a large thick-walled cavitary lesion or hydropneumothorax with thick wall within the inferior right thorax. There has been no significant interval change in the size of this collection compared to the CT obtained at the time of catheter placement on 01/31/2019. This collection has significantly increased compared to the CT dated 12/18/2018. 2. Resolution of a small loculated fluid collection or abscess within the anterior left upper lobe with adjacent small areas of cavitation, favoring a resolving infectious etiology. 3. Scattered nodular and groundglass opacities within both lungs, increased compared to the prior study and likely infectious in etiology. Short-term follow-up is recommended to confirm resolution and exclude a persistent nodule or mass. 4. Suspected thyroid goiter. 5. Hepatosplenomegaly. Electronically signed by: Ofelia Xavier MD (02/03/2019 9:27 AM) [facility]
[2019-02-03] MEDS: PENICILLIN V K 250 MG TABLET. PO SCH ×4 (10:03→20:40)
[2019-02-03 11:00] VITALS: BP 130/69
--- NOTE | 2019-02-03 12:20 | PN ---
DATE: 02/03/2019 SUBJECTIVE: The patient is sitting at the edge of the bed comfortably in no apparent distress. She is status post right chest tube placement for her loculated hydropneumothorax. She continued to have an air leak. She was seen by Dr. Vallejo this morning and she has had a CT scan of the chest and also an x-ray. On questioning her, she denied any complaints. The nursing staff did not voice any concerns that she had an uneventful night. PHYSICAL EXAMINATION: GENERAL: When I examined her, she looked pale, but no jaundice, cyanosis or thyromegaly. No jugular venous distention. No limb edema. VITAL SIGNS: Her heart rate was 68, blood pressure was 133/79, temperature was 97.4, respiratory rate was 18 and oxygen saturation was 98%. HEAD, EYES, EARS, NOSE AND THROAT: Normocephalic, atraumatic. NECK: Supple. HEART: Showed normal first and second heart sounds. No gallop or murmur. CHEST: Clear to auscultation. No crepitation or rhonchi. ABDOMEN: Distended, soft, nontender. She has right-sided chest tube. NEUROLOGIC: She is awake, alert, responding appropriately. All cranial nerves intact. She moves extremities without difficulty. She ambulates without assistance or assistive devices. Her intake was 1116, output was recorded. LABORATORY DATA: Her lab work this morning showed a serum sodium 135, potassium 5.2, chloride 100, bicarbonate 26, anion gap of 9, BUN 23, and creatinine 0.9. ASSESSMENT: 1. Right-sided hydropneumothorax, which has a chest tube placed successfully. 2. Recent admission for right-sided empyema, treated with chest tube and prolonged with antibiotic treatment. 3. Chronic obstructive pulmonary disease. 4. Type 2 diabetes mellitus. 5. Severe protein-calorie malnutrition. 6. Tobacco abuse. PLAN: To continue chest tube. Continue pain management. Continue to monitor her blood sugar and adjust insulin as needed. Continue with oral penicillin V. MARK MARQUES MD DR: CHARLIE/rafael JOB#: [id number] / [id number]
[2019-02-03 15:00] VITALS: BP 100/64
[2019-02-03 19:00] VITALS: BP 130/70
[2019-02-03] MEDS: HYDROcodone/APAP 5/325MG 1 TAB TABLET PO PRN (19:15)
[2019-02-03] MEDS: rOPINIRole 0.25 MG TABLET. PO SCH (20:40)
[2019-02-03 23:00] VITALS: BP 147/72
[2019-02-03] MEDS: LORazepam 0.5 MG TABLET PO PRN (23:32)
[2019-02-04 03:00] VITALS: BP 140/64
[2019-02-04 07:00] VITALS: BP 121/61
[2019-02-04] MEDS: BUDESONIDE 0.5 MG/2 ML NEBU. NEB SCH (07:18)
[2019-02-04] MEDS: ALBUTEROL SULFATE 2.5 MG/3 ML NEBU. NEB SCH ×2 (07:18→13:00)
[2019-02-04] MEDS: LEVOTHYROXINE 75 MCG TABLET PO SCH (07:52)
[2019-02-04] MEDS: metFORMIN XR 500 MG TAB.ER.24H PO SCH (08:36)
[2019-02-04] MEDS: OXYBUTYNIN CHLORIDE 5 MG TABLET PO SCH ×2 (08:37→13:32)
[2019-02-04] MEDS: ASCORBIC ACID 500 MG TABLET PO SCH (08:37)
[2019-02-04] MEDS: SERTRALINE 50 MG TABLET. PO SCH (08:37)
[2019-02-04] MEDS: PENICILLIN V K 250 MG TABLET. PO SCH ×2 (08:37→12:50)
[2019-02-04] MEDS: LACTOBACILLUS RHAMNOSUS GG 1 CAPSULE. PO SCH (08:38)
--- NOTE | 2019-02-04 10:15 | PN ---
DATE: 02/04/2019 SUBJECTIVE: The patient is sitting on the edge of the bed comfortably, in no apparent distress. She continued to have air leak. Her CT scan of the chest done yesterday showed that she has a drainage catheter within the posterior aspect of the large thick-walled cavitary lesion or hydropneumothorax with thick wall within the inferior right thorax. There has been no significant interval change in the size of the collection compared to CT scan obtained at the time of catheter placement on 01/31/2019. This collection has significantly increased compared to CT scan dated 12/18/2018. She had resolution of small loculated fluid collection or abscess within the anterior left upper lobe with adjacent small areas of cavitation favoring resolving infectious etiology. She has scattered nodular ground glass opacities in both lungs, increased compared to a prior study, likely infectious in etiology. She has suspected thyroid goiter and hepatosplenomegaly. OBJECTIVE: GENERAL: On examining her, she looked well, pale, and cachectic, but no jaundice, cyanosis, or thyromegaly. No jugular venous distention. No lower limb edema. VITAL SIGNS: Her heart rate was 69, blood pressure 121/61, temperature was 98, respiratory rate was 18, and oxygen saturation was 95% on room air. The rest of clinical exam is stable and has not really changed. Her intake and output are incompletely recorded. LABORATORY DATA: This morning, her blood sugar seems to be reasonably controlled. ASSESSMENT: 1. The patient seemed to have no change in size of the hydropneumothorax despite the chest tube has been there for almost since 01/31/2019. The patient is generally asymptomatic and has no chest pain or shortness of breath. 2. Recent admission right-sided empyema, treated with chest tube and prolonged antibiotic treatment. 3. Chronic obstructive pulmonary disease. 4. Type 2 diabetes. 5. Severe protein-calorie malnutrition. 6. Tobacco abuse. 7. Marked weight loss for more than 100-pound. PLAN: To continue with chest tube to underwater seal. Continue with pain management. Continue to monitor blood sugar and adjust insulin as needed. Continue with oral penicillin V. She will probably require cardiothoracic surgeon to evaluate and decorticate the right lung. MARK MARQUES MD DR: CHARLIE/rafael JOB#: [id number] / [id number]
--- NOTE | 2019-02-04 10:29 | RAD ---
PORTABLE CHEST 1V History: Hydropneumothorax. Comparison: CT February 03, 2019. Chest x-ray February 03, 2019. Findings: Slightly decreased right basilar cavitary lesion or thick-walled loculated hydropneumothorax. Pigtail drainage catheter in place. Patchy left basilar opacity, unchanged. Right lung volume loss, unchanged. Unchanged heart size. Linear left lung atelectasis or scarring, unchanged. Impression: 1. Slightly decreased right basilar loculated hydropneumothorax or thick-walled cavitary lesion. Pigtail drainage catheter in place. 2. Right basilar patchy opacities, unchanged. Electronically signed by: Bert Norwood DO (02/04/2019 10:27 AM) [id number]
[2019-02-04 11:00] VITALS: BP 118/74
[2019-02-04] MEDS: HYDROcodone/APAP 5/325MG 1 TAB TABLET PO PRN (11:03)
--- NOTE | 2019-02-04 12:01 | PDOC ---
PULMONARY PROGRESS NOTES Subjective wants to go home s/p right chest tube positive air leak has occ cough, no sob Vitals Vital Signs Date Time Temp Pulse Resp B/P (MAP) Pulse Ox O2 Delivery O2 Flow Rate FiO2 02/04/19 11:03 Room Air 02/04/19 07:19 95 02/04/19 07:00 98.0 69 18 121/61 (81) 98.0 General: Alert, No acute distress HEENT: Other Lungs: Other (decrease right base, r ct) Cardiovascular: S1, S2 Abdomen: Soft, Non-tender Neuro Exam: Alert Extremities: No Edema Skin: Warm Labs Laboratory Tests Test 02/02/19 16:42 02/02/19 20:20 02/03/19 04:00 02/03/19 07:26 Glucose (Fingerstick) 221 mg/dL (70-99) 112 mg/dL (70-99) 138 mg/dL (70-99) Sodium Level 135 mmol/L (136-145) Potassium Level 5.2 mmol/L (3.5-5.1) Chloride Level 100 mmol/L (98-107) Carbon Dioxide Level 26 mmol/L (21-32) Anion Gap 9 (6-14) Blood Urea Nitrogen 23 mg/dL (7-20) Creatinine 0.9 mg/dL (0.6-1.0) Estimated GFR (Cockcroft-Gault) 62.3 Glucose Level 178 mg/dL (70-99) Calcium Level 9.5 mg/dL (8.5-10.1) Test 02/03/19 11:36 02/03/19 16:17 02/03/19 20:37 02/04/19 07:33 Glucose (Fingerstick) 70 mg/dL (70-99) 212 mg/dL (70-99) 134 mg/dL (70-99) 115 mg/dL (70-99) Test 02/04/19 11:29 Glucose (Fingerstick) 126 mg/dL (70-99) Laboratory Tests Test 02/03/19 16:17 02/03/19 20:37 02/04/19 07:33 02/04/19 11:29 Glucose (Fingerstick) 212 mg/dL (70-99) 134 mg/dL (70-99) 115 mg/dL (70-99) 126 mg/dL (70-99) Medications Active Scripts Medications Dose Route/Sig Max Daily Dose Days Date Category Lorazepam 0.5 Mg Tablet 1 Tab PO DAILY 3 12/24/18 Rx Penicillin V Potassium 500 Mg Tablet 1 Tab PO QID 14 12/24/18 Rx Ascorbic Acid 500 Mg Tablet 500 Mg PO DAILY 12/16/18 Reported Tramadol Hcl 50 Mg Tablet 50 Mg PO TID PRN PRN 12/16/18 Reported Symbicort 80-4.5 Mcg Inhaler (Budesonide/Formoterol Fumarate) 10.2 Gm Hfa.aer.ad 2 Puff IH BID 12/16/18 Reported Hermon 5-325 Tablet (Acetaminophen/Hydrocodone Bitart) 1 Each Tablet 1 Tab PO PRN Q6HRS PRN 12/16/18 Reported Requip (Ropinirole Hcl) 0.25 Mg Tablet 0.25 Mg PO HS 12/16/18 Reported Levothyroxine Sodium 75 Mcg Tablet 1 Tab PO DAILY 12/16/18 Reported Spironolactone 25 Mg Tablet 1 Tab PO BID 12/16/18 Reported Ibuprofen 600 Mg Tablet 600 Mg PO PRN Q8HRS PRN 12/16/18 Reported Zoloft (Sertraline Hcl) 100 Mg Tablet 2 Tab PO DAILY 12/16/18 Reported Levothyroxine Sodium 25 Mcg Tablet 1 Tab PO DAILY 12/13/18 Reported Lorazepam 0.5 Mg Tablet 1 Tab PO DAILY 12/13/18 Reported Oxybutynin Chloride Er (Oxybutynin Chloride) 15 Mg Tab.er.24 1 Tab PO DAILY 12/13/18 Reported Metformin Hcl Er (Metformin Hcl) 500 Mg Tab.er.24h 1,000 Mg PO BIDWMEALS 12/13/18 Reported Comments reviewed cxr 02/04 Impression: 1. Slightly decreased right basilar loculated hydropneumothorax or thick-walled cavitary lesion. Pigtail drainage catheter in place. 2. Right basilar patchy opacities, unchanged. Electronically signed by: Bert Norwood DO (02/04/2019 10:27 AM) [id number] Impression . 1. hydropneumothorax involving the right lung as OP. Likely trapped lung. However, she was minimally symptomatic with some chest discomfort with no shortness of breath. s/p right chest tube / persistent air leak 2. The patient with h/o empyema in the right lower chest, treated with chest tube and prolonged antibiotics. There was also a left upper lobe rounded density with central necrosis, which also was inflammatory as it has improved on recent CAT scan. She still has multiple small rounded densities in the pleura, likely organized pleural thickening. It does not need any intervention at present. 3. Underlying chronic obstructive pulmonary disease with ongoing tobaccoism. Plan . 1. CT-guided chest tube 01/31. still has Air leak, 2. she wants to go home . will attach chest tube to Heimlick valve and dc home. Doubt that VAT will be successful either but can be considered if hydro-ptx increases in future after removal of chest tube. 3. Continue p.r.n. oxygen. 4. Continue bronchodilators. f/u with DR Waller in two weeks with cxr GILMA LÓPEZ MD Feb 04, 2019 12:00
--- NOTE | 2019-02-04 12:42 | NUR ---
Per Dr. Armijo's orders. Patient was disconnected from pleuravac and a heimlich valve was attached to existing chest tube. RN was informed.
--- NOTE | 2019-02-04 13:26 | SNU/HH DC ---
DISCHARGE WITH HOME HEALTH DISCHARGE INFORMATION: Discharge Date: Feb 04, 2019 Final Diagnosis: Problems Medical Problems: (1) COPD (chronic obstructive pulmonary disease) Status: Chronic (2) Hydropneumothorax Status: Acute Condition on Discharge: Stable CODE STATUS: Code Status: Full HOME HEALTH: Face to Face: I certify this patient is under my care and that I, or a nurse practitioner or physician's news production assistant working with me, had a face to face encounter that meets the physician face to face encounter requirements with this patient on 02/04/19 Medical Complications: COPD, Other Prison For: Admin/Educate Injections RN For Eval/Treatment: Yes Physical Therapy For: Evalulation/Treatment Occupational Therapy For: Evaluation/Treatment Pt Meets Homebound Status: Extreme weakness w/ amb. POST DISCHARGE ORDERS: Activity Instructions for Disc: Resume previous activity, Activity as tolerated Weight Bearing Status after Di: No restrictions Bathing Instructions: No Tub Bath until see DIET AFTER DISCHARGE: ADA Wound/Incision Care: Change dressing CHECKS AFTER DISCHARGE: Comment: back FOLLOW-UP: Follow Up With: Dr. Armijo on February 20, 2019 at 3:30pm - if questions call [phone] TREATMENT/EQUIPMENT ORDERS: Adaptive Equipment Issued: None CERTIFICATION STATEMENT: Certification Statement: Certification Statement: Based on the above finding, I certify that this patient is confined to the home and needs intermittent alf care, physical therapy and/or speech therapy, or continues to need occupational therapy.~ This patient is under my care, and I have initiated the establishment of the plan of care.~ This patient will be followed by myself or a community physician who will periodically review the plan of care. Home Meds Active Scripts Lorazepam (LORAZEPAM) 0.5 Mg Tablet, 1 TAB PO DAILY for ANXIETY for 3 Days, #3 TAB Prov:MARK MARQUES MD 12/24/18 Penicillin V Potassium (PENICILLIN V POTASSIUM) 500 Mg Tablet, 1 TAB PO QID for EMPYEMA for 14 Days, #56 TAB 0 Refills Prov:MARK MARQUES MD 12/24/18 Reported Medications Ascorbic Acid (ASCORBIC ACID) 500 Mg Tablet, 500 MG PO DAILY for supplement, TAB 12/16/18 Tramadol Hcl (TRAMADOL HCL) 50 Mg Tablet, 50 MG PO TID PRN PRN for PAIN, TAB 0 Refills 12/16/18 Budesonide/Formoterol Fumarate (SYMBICORT 80-4.5 MCG INHALER) 10.2 Gm Hfa.aer.ad, 2 PUFF IH BID for COPD, #10.2 GM 5 Refills 12/16/18 Hydrocodone/Apap 5-325 (NORCO 5-325 TABLET) 1 Each Tablet, 1 TAB PO PRN Q6HRS PRN for PAIN, TAB 0 Refills 12/16/18 Ropinirole Hcl (REQUIP) 0.25 Mg Tablet, 0.25 MG PO HS for depression, TAB 12/16/18 Levothyroxine Sodium (LEVOTHYROXINE SODIUM) 75 Mcg Tablet, 1 TAB PO DAILY for hypothyroidism, #30 TAB 5 Refills 12/16/18 Spironolactone (SPIRONOLACTONE) 25 Mg Tablet, 1 TAB PO BID for CHF, #90 TAB 1 Refill 12/16/18 Ibuprofen (IBUPROFEN) 600 Mg Tablet, 600 MG PO PRN Q8HRS PRN for INFLAMMATION, TAB 12/16/18 Sertraline Hcl (ZOLOFT) 100 Mg Tablet, 2 TAB PO DAILY for depression, #30 TAB 5 Refills 12/16/18 Oxybutynin Chloride (OXYBUTYNIN CHLORIDE ER) 15 Mg Tab.er.24, 1 TAB PO DAILY for urinary freq, #90 TAB 1 Refill 12/13/18 Metformin Hcl (METFORMIN HCL ER) 500 Mg Tab.er.24h, 1000 MG PO BIDWMEALS for diabetes, TAB 12/13/18 Discontinued Reported Medications Levothyroxine Sodium (LEVOTHYROXINE SODIUM) 25 Mcg Tablet, 1 TAB PO DAILY for thyroid med, #30 TAB 5 Refills 12/13/18 Lorazepam (LORAZEPAM) 0.5 Mg Tablet, 1 TAB PO DAILY for anxiety, #30 TAB 12/13/18 MARK MARQUES MD Feb 04, 2019 13:26
--- NOTE | 2019-02-04 13:50 | NUR ---
Dressing changed on chest tube before discharge.
--- NOTE | 2019-02-04 13:50 | NUR ---
Discharge Note: SERGEY SLATER Discharge instructions and discharge home medications reviewed with Patient and a copy given. All questions have been answered and understanding verbalized. The following instructions and handouts were given: discharge instructions, education, and follow up recommendations. Discontinued lines and drains: Peripheral IV discontinued intact. Patient discharged to Home with Home Health with Family Member via Wheelchair off unit by RN.
--- NOTE | 2019-02-04 15:01 | NUR ---
Late note: Pt met with nurse navigator from [facility] and is agreeable with services. HH is arranged by Nurse Navigator.
--- NOTE | 2019-02-05 00:05 | DS ---
DATE OF DISCHARGE: 02/04/2019 HOSPITAL COURSE: The patient is a 68-year-old female patient who was admitted and she was seen and followed up by her track hoe operator, and a CT scan of the chest showed that she has hydropneumothorax that has increased from December films. There were still some loculated rounded densities in the right lung. The previously seen left upper lobe rounded densities have improved and now there was parenchymal scarring. Dr. Barton was consulted and she had a chest tube placed to underwater seal and she had a CT scan done yesterday, which has not really shown much of the change. I spoke with Dr. Armijo this morning and he basically applied the Heimlich valve and recommended that the patient can be discharged home to follow as an outpatient. PHYSICAL EXAMINATION: GENERAL: When I saw her this morning, she looked well and was clearly in no apparent respiratory distress. When I examined her this afternoon, she looked pale with no jaundice, cyanosis, or thyromegaly. No jugular venous distention. No limb edema. VITAL SIGNS: Her heart rate was 70, blood pressure was 118/74, temperature was 98.1, respiratory rate was 18, and oxygen saturation was 97%. HEAD, EYES, EARS, NOSE, AND THROAT: Showed normocephalic, atraumatic. NECK: Supple. HEART: Showed normal first and second heart sounds. No gallop or murmur. CHEST: Shows central trachea, equal bilateral expansion, air entry. She has chest tube with right hemothorax. ABDOMEN: Scaphoid, soft, nontender. NEUROLOGIC: She is awake, alert, responding appropriately. She moves all extremities without difficulty. She ambulates without assistance or assistive devices. LABORATORY DATA: Showed that her serum sodium was 135, potassium 5.2, chloride 100, bicarbonate 26, anion gap of 9, BUN 22, creatinine 0.9, estimated GFR was 63 mL/min. Her white cell count was 7000, hemoglobin 11, hematocrit 33, MCV 98, and platelet count 322,000. ASSESSMENT AND PLAN: 1. Loculated hydropneumothorax of the right lung, likely trapped lung. However, she was minimally symptomatic. 2. Empyema of the right lower chest status post chest tube placement and removal. 3. Chronic obstructive pulmonary disease and empyema with growth of Streptococcus intermedius for which she continues to be on penicillin V. Dictation Ends Here MARK MARQUES MD DR: CHARLIE/rafael JOB#: [id number] / [id number]
--- NOTE | 2019-02-21 15:41 | RAD ---
CT-guided placement of right thoracostomy tube. 9.26.19 Indication: hydropneumothorax, possible trapped lung. Consent: The procedure was explained in its entirety to the patient or the patients designated national sales representative by a member of the treatment team, including a discussion of the risks, benefits and commonly accepted alternatives to the procedure, as well as the expected consequences of no therapy whatsoever. Discussion of the risks included, but was not limited to, those that are most frequent and those that are rare but possibly severe or life-threatening, as well as the possibility of unforeseen complications. All elements of maximal sterile barrier technique including the use of a cap,mask, sterile gown, sterile gloves, large sterile sheet, appropriate hand hygiene, and 2% chlorhexidine for cutaneous antisepsis (or acceptable alternative antiseptic per current guidelines) were followed for this procedure. The right posterior thorax prepped and draped using sterile barrier technique. Ultrasound evaluation demonstrates a multiloculated, complex pleural collection. 1% lidocaine was administered for local anesthesia. Under direct ultrasound guidance a 5 Serbian sheath needle was advanced into the largest visualized fluid collection. A guidewire was advanced into this collection over which following dilatation a 12 Serbian drainage catheter was placed. Samples of fluid were aspirated and sent for further evaluation. Anesthesia: The procedures performed under moderate sedation including continuous cardiopulmonary monitoring via dedicated sedation nurse. [id number] sedation time: 30 minutes. Impression: CT-guided thoracostomy tube placement PQRS Compliance Statement: One or more of the following individualized dose reduction techniques were utilized for this examination: 1. Automated exposure control 2. Adjustment of the mA and/or kV according to patient size 3. Use of iterative reconstruction technique
== END 2019-02-04 13:52 | disposition home health service (06) | DRG 186 ==
LOC: ER 14:05 → 5 SOUTH 15:06
PROVIDERS: ADMIT Internal Medicine; ATTEND Internal Medicine
PROC: 0W9930Z Drainage of Right Pleural Cavity with Drainage Device, Percutaneous Approach (ICD-10-PCS; principal; 2019-02-01)
DX: J94.8 Other specified pleural conditions (principal); E43 Unspecified severe protein-calorie malnutrition; J93.82 Other air leak; J98.11 Atelectasis; E11.9 Type 2 diabetes mellitus without complications; R59.0 Localized enlarged lymph nodes; J43.9 Emphysema, unspecified; F17.210 Nicotine dependence, cigarettes, uncomplicated; J98.4 Other disorders of lung; Z79.2 Long term (current) use of antibiotics; Z68.20 Body mass index [BMI] 20.0-20.9, adult; Z88.2 Allergy status to sulfonamides
CPT/HCPCS: 32557; 36415; 71045; 71046; 71250; 80048; 80053; 82962; 85025; 85027; 85610; 85730; 94640; 94760; 99152; 99153; 99406; A4215; C1729; C1892; C1894; J2250; J3010; J7613; J7626; 99285-25; G0378